=== PATIENT | female | born 1975 | race Caucasian/White ===

== ENCOUNTER 2017-08-30 07:28 | Day surgery (SDC) | payer BC, OTHER ==
[~2017-08-30 07:28] MED LIST: PROPOFOL INJ 200 MG/20 ML VIAL IV ONE
[2017-08-30 09:16] VITALS: BP 122/87
--- NOTE | 2017-08-30 12:46 | Operative Report ---
Operative Report DATE OF SURGERY: 08/30/17 Operative Report: The risks, benefits and alternatives of the procedure including risks of bleeding, perforation requiring surgery are explained to the patient detail and informed consent was obtained. Patient is taken back to the endoscopy suite and placed in the left, lateral decubital position. Timeout was called. Propofol medications administered. A rectal examination is done which did not reveal any masses, tears or fissures. An Olympus videoscope was inserted into the patient's rectum. The scope was then carefully advanced all the way to the cecum. The cecum is identified by the usual anatomical landmarks including the ileocecal valve as well as appendiceal office. Photodocumentation is obtained. The scope was then sequentially pulled back via the various segments of the colon including the ascending colon, hepatic flexure, transverse colon, splenic flexure, descending colon and finding to the rectosigmoid portions of the colon. Retroflexion maneuvers performed. PREOPERATIVE DIAGNOSIS: Left lower quadrant pain. Change in bowel habits POSTOPERATIVE DIAGNOSIS: Diverticulosis. Internal hemorrhoids. Polyp in the rectosigmoid area status post snare polypectomy. Right side inflammation noted status post biopsy OPERATION: Colonoscopy with snare polypectomy. Colonoscopy with biopsy SURGEON: DAMIEN ESTRADA ANESTHESIA: LMAC TISSUE REMOVED OR ALTERED: As noted above. COMPLICATIONS: None. ESTIMATED BLOOD LOSS: None. INTRAOPERATIVE FINDINGS: As noted above. PROCEDURE: Patient tolerated procedure well. No immediate postprocedure complications are noted. Patient discharged in good condition. Discharge date 08/30/2017. Discharge diet: Regular. Discharge activity: Regular. 2-3 week follow-up to discuss findings. 5 year surveillance colonoscopy. Patient is instructed to call the office or proceed to the emergency room should there be any further problems or questions. We will wait on pathology.
== END 2017-08-30 09:30 | disposition home or self-care (01) ==
LOC: END 07:28
PROVIDERS: ATTEND Internal Medicine Gastroenterology
PROC: 0DBF8ZX Excision of Right Large Intestine, Via Natural or Artificial Opening Endoscopic, Diagnostic (ICD-10-PCS; principal; 2017-08-30 08:30)
PROC: 0DBP8ZX Excision of Rectum, Via Natural or Artificial Opening Endoscopic, Diagnostic (ICD-10-PCS; 2017-08-30 08:30)
DX: D12.8 Benign neoplasm of rectum (principal); I10 Essential (primary) hypertension; Z79.51 Long term (current) use of inhaled steroids; Z79.899 Other long term (current) drug therapy
CPT/HCPCS: 45380; 45385; 88305 ×2; J2704; 810

== ENCOUNTER 2017-10-13 09:40 | Emergency (ER) | payer OTHER ==
[2017-10-13] MEDS ORDERED: ONDANSETRON HCL INJ/PF 4 MG/2 ML SDV IV ONE (10:08)
[2017-10-13] MEDS ORDERED: MORPHINE SULFATE 10 MG/ML INJ IV ONE (10:08)
[2017-10-13] MEDS ORDERED: NORMAL SALINE 1000 ML 1,000 ML IV ONE (10:08)
--- NOTE | 2017-10-13 10:09 | ER Document Report ---
ED Medical Screen (RME) - General Chief Complaint: Abdominal Pain Stated Complaint: ABDOMINAL PAIN Time Seen by Provider: 10/13/17 10:07 Notes: Patient has had one year of lower abdominal pain. She recently had a unremarkable cholecystectomy. She states the pain is worse when she has a bowel movement. TRAVEL OUTSIDE OF THE [place] IN LAST 30 DAYS: No - Related Data Allergies/Adverse Reactions: No Known Allergies Allergy (Verified 08/30/17 07:34) Past Medical History - Social History Chew tobacco use (# tins/day): No Frequency of alcohol use: None Drug Abuse: None - Past Medical History Cardiac Medical History: Reports: Hx Hypertension Denies: Hx Coronary Artery Disease, Hx Heart Attack Pulmonary Medical History: Reports: Hx Pneumonia - 2 YRS AGO Denies: Hx Asthma, Hx Bronchitis, Hx COPD Neurological Medical History: Denies: Hx Cerebrovascular Accident, Hx Seizures Renal/ Medical History: Reports: Hx Kidney Stones. Denies: Hx Peritoneal Dialysis Musculoskeltal Medical History: Denies Hx Arthritis Past Surgical History: Reports: Hx Section - Immunizations Hx Diphtheria, Pertussis, Tetanus Vaccination: Yes Physical Exam - Vital signs Vitals: Temp Pulse Resp BP Pulse Ox 98.1 F 77 16 135/101 H 97 10/13/17 09:50 10/13/17 09:50 10/13/17 09:50 10/13/17 09:50 10/13/17 09:50 Course - Vital Signs Vital signs: Temp Pulse Resp BP Pulse Ox 98.1 F 77 16 135/101 H 97 10/13/17 09:50 10/13/17 09:50 10/13/17 09:50 10/13/17 09:50 10/13/17 09:50
[2017-10-13] MEDS ORDERED: HYDROMORPHONE HCL INJ/PF 2 MG/ML AMPULE IV ONE (11:19)
[2017-10-13 11:32] LABS: ABSOLUTE BASOPHILS # (AUTO) 0.1 10^3/uL (0.0-0.2); ABSOLUTE EOSINOPHILS # (AUTO) 0.8 10^3/uL (0.0-0.6); ABSOLUTE LYMPHOCYTES (AUTO) 3.1 10^3/uL (0.5-4.7); ABSOLUTE MONOCYTES (AUTO) 0.6 10^3/uL (0.1-1.4); ABSOLUTE NEUT (AUTO) 4.5 10^3/uL (1.7-8.2); BASOPHILS % (AUTO) 0.6 % (0-2); EOSINOPHILS % (AUTO) 8.9 % (0-6); HEMATOCRIT 44.1 % (36.0-47.0); HEMOGLOBIN 15.1 g/dL (12.0-15.5); HGB HCT DIFFERENCE 1.2; LYMPHOCYTES % (AUTO) 33.9 % (13-45); MEAN CORPUSCULAR HEMOGLOBIN 28.3 pg (27.0-33.4); MEAN CORPUSCULAR HGB CONC 34.4 g/dL (32.0-36.0); MEAN CORPUSCULAR VOLUME 82 fl (80-97); MONOCYTES % (AUTO) 6.5 % (3-13); RED BLOOD COUNT 5.36 10^6/uL (3.72-5.28); RED CELL DISTRIBUTION WIDTH 14.5 % (11.5-14.0); SEGMENTED NEUTROPHILS % (AUTO) 50.1 % (42-78); WHITE BLOOD COUNT 9.1 10^3/uL (4.0-10.5)
[2017-10-13 12:01] LABS: ALANINE AMINOTRANSFERASE 34 U/L (9-52); ALBUMIN 4.5 g/dL (3.5-5.0); ALKALINE PHOSPHATASE 71 U/L (38-126); ANION GAP 13 (5-19); ASPARTATE AMINO TRANSFERASE 32 U/L (14-36); BILIRUBIN,DIRECT 0.4 mg/dL (0.0-0.4); BILIRUBIN,TOTAL 0.5 mg/dL (0.2-1.3); BLOOD UREA NITROGEN 10 mg/dL (7-20); CALCIUM 9.2 mg/dL (8.4-10.2); CARBON DIOXIDE 23 mmol/L (22-30); CHLORIDE 108 mmol/L (98-107); CREATININE RESULT 0.66 mg/dL (0.52-1.25); GLUCOSE 96 mg/dL (75-110); LIPASE 673.5 U/L (23-300); SODIUM 143.5 mmol/L (137-145); TOTAL PROTEIN 7.4 g/dL (6.3-8.2)
[2017-10-13 12:18] LABS: APPEARANCE,URINE CLOUDY; BILIRUBIN,URINE NEGATIVE (NEGATIVE); GLUCOSE, URINE NEGATIVE (NEGATIVE); KETONES,URINE NEGATIVE (NEGATIVE); LEUKOCYTE ESTERASE,URINE NEGATIVE (NEGATIVE); NITRITE,URINE POSITIVE (NEGATIVE); PROTEIN,URINE 30 mg/dL (NEGATIVE); URINE SPECIFIC GRAVITY 1.026
--- NOTE | 2017-10-13 12:21 | ER Document Report ---
ED GI/ - General Chief Complaint: Abdominal Pain Stated Complaint: ABDOMINAL PAIN Time Seen by Provider: 10/13/17 10:07 Notes: Patient is a 42-year-old female who presents to the emergency department with multiple symptoms but chief complaint of right flank pain that started this morning. Patient also complaining of left lower quadrant pain with suprapubic pain that is been on for about a week. She describes her right flank pain as a constant ache with intermittent stabbing. Regarding her suprapubic pain she describes it as a constant pressure that is radiating to her left lower quadrant. Patient does to admits to chronic abdominal pain that was recently evaluated with a colonoscopy with Dr. Ang. She was told at that time she she has internal hemorrhoids as well as diverticulosis but no evidence of any other intra-abdominal process. She otherwise denies any fevers or chills. She has been tolerating p.o. without any difficulty and having regular bowel movements. Past medical history significant for kidney stones, hypertension TRAVEL OUTSIDE OF THE [place] IN LAST 30 DAYS: No - Related Data Allergies/Adverse Reactions: No Known Allergies Allergy (Verified 08/30/17 07:34) Past Medical History - Social History Smoking Status: Current Every Day Smoker Chew tobacco use (# tins/day): No Frequency of alcohol use: None Drug Abuse: None Family History: Hypertension, Other - states her dad has anxiety issues Patient has suicidal ideation: No Patient has homicidal ideation: No - Past Medical History Cardiac Medical History: Reports: Hx Hypertension Denies: Hx Coronary Artery Disease, Hx Heart Attack Pulmonary Medical History: Reports: Hx Pneumonia - 2 YRS AGO Denies: Hx Asthma, Hx Bronchitis, Hx COPD Neurological Medical History: Denies: Hx Cerebrovascular Accident, Hx Seizures Renal/ Medical History: Reports: Hx Kidney Stones. Denies: Hx Peritoneal Dialysis Musculoskeltal Medical History: Denies Hx Arthritis Past Surgical History: Reports: Hx Section - Immunizations Hx Diphtheria, Pertussis, Tetanus Vaccination: Yes Review of Systems - Review of Systems Constitutional: No symptoms reported Cardiovascular: No symptoms reported Respiratory: No symptoms reported Gastrointestinal: See HPI Genitourinary: See HPI -: Yes All other systems reviewed and negative Physical Exam - Vital signs Vitals: Temp Pulse Resp BP Pulse Ox 98.1 F 77 16 135/101 H 97 10/13/17 09:50 10/13/17 09:50 10/13/17 09:50 10/13/17 09:50 10/13/17 09:50 - Notes Notes: PHYSICAL EXAM GENERAL: Alert, interacts well. LUNGS: Clear to auscultation bilaterally, no wheezes, rales, or rhonchi. No respiratory distress. HEART: Regular rate and rhythm. No murmurs, gallops, or rubs. ABDOMEN: Soft, nondistended, mild diffuse abdominal tenderness without guarding , rebound, or rigidity.. Bowel sounds present in all 4 quadrants. EXTREMITIES: Moves all 4 extremities spontaneously. No edema, radial and dorsalis pedis pulses 2/4 bilaterally. No cyanosis. Back: No evidence of CVA tenderness bilaterally. NEUROLOGICAL: Alert and oriented x4. Normal speech. PSYCH: Normal affect, normal mood. SKIN: Warm, dry, normal turgor. No rashes or lesions noted. Course - Re-evaluation Re-evalutation: 10/13/17 12:29 patient is a 42-year-old female who is hemodynamically stable, no acute distress and afebrile. Patient does have a history of diverticulosis and kidney stones. CBC without evidence of leukocytosis or anemia. Chemistry without any evidence of AK I. Mild elevation in pancreatic function but patient is asymptomatic. Urine does show concern for new onset of UTI with positive nitrites. White blood cells and evidence of trace bacteria. Patient is asymptomatic. 10/13/17 16:34 CT the abdomen pelvis shows a 4 x 8 mm stone within the lower pole the right kidney without evidence of hydronephrosis. Given evidence of bacteriuria, consult was placed to Sandi bullock urology [facility] who recommends that the patient can be discharged on Cipro and to follow-up with them in their clinic either this week or next week. Patient agrees with plan did receive a dose of Rocephin here and is stable for discharge home - Vital Signs Vital signs: Temp Pulse Resp BP Pulse Ox 97.7 F 69 18 126/96 H 97 10/13/17 17:07 10/13/17 17:07 10/13/17 17:07 10/13/17 17:07 10/13/17 17:07 - Laboratory Result Diagrams: 10/13/17 10:40 10/13/17 10:40 Laboratory results interpreted by me: 10/13/17 10/13/17 10/13/17 10:40 10:40 10:40 RBC 5.36 H RDW 14.5 H Eosinophils % 8.9 H Absolute Eosinophils 0.8 H Chloride 108 H Lipase 673.5 H Urine Protein 30 H Urine Blood LARGE H Urine Nitrite POSITIVE H Urine Urobilinogen 4.0 H - Diagnostic Test Radiology reviewed: Image reviewed, Reports reviewed Discharge - Discharge Clinical Impression: Nephrolithiasis UTI (urinary tract infection) Qualifiers: Urinary tract infection type: acute cystitis Hematuria presence: with hematuria Qualified Code(s): N30.01 - Acute cystitis with hematuria Condition: Good Disposition: HOME, SELF-CARE Additional Instructions: You do have evidence of a UTI with your stone is concerning for possibility of infection. Please be sure to take all of your antibiotics as directed otherwise follow-up with Dr. Bullock at [facility]. Otherwise please return to the emergency department with a fever of 102 not responding to Tylenol or Motrin, inability to tolerate fluids, worsening pain or any symptoms that are worrisome to you. [facility] - [facility] [id number] KIDNEY STONE: You are passing or have passed a kidney stone. These stones are usually due to increased calcium or uric acid concentrations in your urine. Stones within the kidney itself are not painful. The pain occurs as the stone leaves the kidney to pass down the long tube, called the ureter, leading to the bladder. If the stone is small, it will usually pass by itself. Most patients can pass the stone at home. You will usually receive medications for pain, nausea or vomiting, and sometimes a medication to assist in passing the kidney stone. However, if the pain is very severe or if vomiting prevents you from taking oral pain medications, you may need to return for further treatment. Drink three or four quarts of fluids per day. You will be given pain medication (if needed) and urine strainers. Strain all your urine to see if the stone passes. If your doctor has asked you to bring the stone in for analysis, return with the stone once it has passed. Return if pain or vomiting become severe, if you develop a high fever, if you are unable to pass your urine, or if other unusual symptoms occur. TORADOL INJECTION: You have been given an injection of ketorolac tromethamine (Toradol). This is an excellent, safe drug for pain control. It also has potent antiinflammatory action. You should have significant pain relief within about one hour. Toradol is not addicting and is non-sedating. It does not interfere with driving or work. Call or return if you develop itching, hives, shortness of breath, or rash. PAIN MEDICATION INJECTION: You have received an injection of a pain medication. You should experience significant pain relief within 45 minutes. This drug is a narcotic - - it will impair your judgement, slow your reaction time and make you sleepy ( as well as relieve your pain). Narcotics also can cause nausea. You should not drive, work with machinery, or perform any task requiring mental alertness until all effects of the medication are gone -- six to eight hours. Do not take any alcohol, or sedatives, and do not take any other medication without checking with your physician. ANTINAUSEA MEDICATION: You have been given a medication to suppress nausea and vomiting. This type of medication can be given as a shot, pill, or suppository. It will usually last for many hours. Pills and shots usually last six to eight hours, suppositories last about 12 hours. For the typical illness, only one or two doses of the medication may be necessary. Mild lightheadedness may occur. This type of medicine can cause drowsiness. Do not drive or operate dangerous machinery while under its influence. Do not mix with alcohol. See your doctor at once if you have muscle spasms or tightness, or uncontrollable motions (particularly of the neck, mouth, or jaw). Persistent vomiting or severe lightheadedness should also be evaluated by the physician. FOLLOW-UP CARE: If you have been referred to a physician for follow-up care, call the physician s office for an appointment as you were instructed or within the next two days. If you experience worsening or a significant change in your symptoms, notify the physician immediately or return to the Emergency Department at any time for re-evaluation. Prescriptions: Ketorolac Tromethamine [Toradol 10 mg Tablet] 10 mg PO Q6HP PRN #20 tablet PRN Reason: Ciprofloxacin HCl [Cipro 500 mg Tablet] 500 mg PO BID #10 tablet Metoclopramide HCl [Reglan 10 mg Tablet] 1 - 2 tab PO ASDIR PRN #25 tablet PRN Reason: Forms: Return to Work Referrals: ELIJAH GONZALES DO [Primary Care Provider] - Follow up as needed [facility] [Provider Group] - Follow up as needed
--- NOTE | 2017-10-13 14:10 | RADIOLOGY REPORT (SQ) ---
EXAM DESCRIPTION: CT ABD/PELVIS WITH IV ONLY COMPLETED DATE/TIME: 10/13/2017 1:59 pm REASON FOR STUDY: LLQ pain, h/o diverticulosis and kidney stones COMPARISON: 06/18/2014. TECHNIQUE: CT scan of the abdomen and pelvis performed using helical scanning technique with dynamic intravenous contrast injection. No oral contrast. Images reviewed with lung, soft tissue, and bone windows. Reconstructed coronal and sagittal MPR images reviewed. Delayed images for evaluation of the urinary system also acquired. All images stored on PACS. All CT scanners at this facility use dose modulation, iterative reconstruction, and/or weight based d osing when appropriate to reduce radiation dose to as low as reasonably achievable (ALARA). [facility]: Dose Right [facility]: CareDose [facility]: Dose Right [facility]: Teradose 4D [facility]: m2M Strategies CONTRAST TYPE AND DOSE: contrast/concentration: Isovue 370.00 mg/ml; Total Contrast Delivered: 95.0 ml; Total Saline Delivered: 59.1 ml RENAL FUNCTION: BUN 10 creatinine 0.66. RADIATION DOSE: . LIMITATIONS: None. FINDINGS: LOWER CHEST: No significant findings. No nodules or infiltrates. LIVER: Normal size. No masses. Mild fatty infiltration. No dilated ducts. SPLEEN: Normal size. No focal lesions. PANCREAS: No masses. No significant calcifications. No adjacent inflammation or peripancreatic fluid collections. Pancreatic duct not dilated. GALLBLADDER: No identified stones by CT criteria. No inflammatory changes to suggest cholecystitis. ADRENAL GLANDS: No significant masses or asymmetry. RIGHT KIDNEY AND URETER: No solid masses. 4 x 8 mm calculus in a lower pole calyx. No hydronephro sis or hydroureter. LEFT KIDNEY AND URETER: No solid masses. No significant calcifications. No hydronephrosis or hydr oureter. AORTA AND VESSELS: No aneurysm. No dissection. Renal arteries, SMA, celiac without stenosis. RETROPERITONEUM: No retroperitoneal adenopathy, hemorrhage or masses. BOWEL AND PERITONEAL CAVITY: Scattered colonic diverticuli primarily in the sigmoid colon. No masses or inflammatory changes. No free fluid or peritoneal masses. APPENDIX: Normal. PELVIS: No mass. No free fluid. Normal bladder. ABDOMINAL WALL: No masses. No hernias. BONES: No significant or acute findings. OTHER: No other significant finding. IMPRESSION: 1. SIGMOID DIVERTICULOSIS. NO CT FINDINGS OF ACUTE DIVERTICULITIS. 2. NONOBSTRUCTING CALYCEAL CALCULUS IN THE LOWER POLE OF THE RIGHT KIDNEY. NO URETERAL CALCULI OR OB STRUCTIVE UROPATHY. 3. NO OTHER SIGNIFICANT OR ACUTE FINDING IN THE ABDOMEN OR PELVIS ON CT SCAN WITH IV CONTRAST. TECHNICAL DOCUMENTATION: JOB ID: [id number] Quality ID # [id number]: Final reports with documentation of one or more dose reduction techniques (e.g., Au tomated exposure control, adjustment of the mA and/or kV according to patient size, use of iterative reconstruction technique) 2010 [employer]- All Rights Reserved
[2017-10-13] MEDS ORDERED: CEFTRIAXONE INJ 1000 MG VIAL IM ONE (16:28)
[2017-10-13] MEDS ORDERED: LIDOCAINE 1% INJ-PF (10 MG/ML) 30 ML SDV INJ ONE (16:28)
[2017-10-13 17:15] VITALS: BP 126/96
== END 2017-10-13 17:22 | disposition home or self-care (01) ==
LOC: ER 09:40
DX: N30.01 Acute cystitis with hematuria (principal); N20.0 Calculus of kidney; I10 Essential (primary) hypertension; F17.200 Nicotine dependence, unspecified, uncomplicated
CPT/HCPCS: 99284; 96372; 96361; 96374; 96375; 36415; 87086; 83690; 85025; 81025; 80053; 81001; 74177; J3490; J2270; J1170; J0696; J2405; J7030

== ENCOUNTER → 2017-11-01 | Outpatient (CLI) | payer OTHER | LOC: OD 14:17 | PROVIDERS: ATTEND Nurse Practitioner Acute Care | DX: R82.71 Bacteriuria (principal) | CPT/HCPCS: 87086; 87088 ==

== ENCOUNTER → 2018-01-12 | Outpatient (CLI) | payer OTHER ==
--- NOTE | 2018-01-12 16:43 | RADIOLOGY REPORT (SQ) ---
EXAM DESCRIPTION: KUB/ABDOMEN (SINGLE VIEW) COMPLETED DATE/TIME: 01/12/2018 4:25 pm REASON FOR STUDY: N20.0 CALCULUS OF KIDNEY N20.0 CALCULUS OF KIDNEY COMPARISON: CT dated 10/13/2017. NUMBER OF VIEWS: One view. TECHNIQUE: AP supine digital radiograph of the abdomen. LIMITATIONS: None. FINDINGS: CALCIFICATIONS: RIGHT KIDNEY: None. RIGHT URETER: 6 mm calculus at the level of L4. LEFT KIDNEY: None. LEFT URETER: No calcifications in the expected location of the ureter. BLADDER: No suspicious calcifications in the pelvis. BOWEL GAS PATTERN AND SOFT TISSUES: Normal bowel gas pattern. No masses or organomegaly. BONES: No acute fracture. No worrisome bone lesions. OTHER: None. IMPRESSION: 6 MM CALCULUS IN THE MID RIGHT URETER. TECHNICAL DOCUMENTATION: JOB ID: [id number] [employer]- All Rights Reserved Reading location - IP/workstation name: [email or web address]
== END ==
LOC: RAD 16:13
PROVIDERS: ATTEND Urology
DX: N20.0 Calculus of kidney (principal)
CPT/HCPCS: 74018

== ENCOUNTER 2018-05-01 11:53 | Emergency (ER) | payer OTHER ==
[2018-05-01] MEDS ORDERED: HYDROMORPHONE HCL INJ/PF 2 MG/ML AMPULE IV ONE ×3 (12:39→17:17)
[2018-05-01] MEDS ORDERED: ONDANSETRON 4 MG TAB.RAPDIS PO ONE (12:40)
--- NOTE | 2018-05-01 12:44 | ER Document Report ---
ED Medical Screen (RME) - General Chief Complaint: Abdominal Pain Stated Complaint: ABDOMINAL PAIN,VOMITING Time Seen by Provider: 05/01/18 12:16 Mode of Arrival: Ambulatory Information source: Patient Notes: 42-year-old female with hypertension presents with complaint of suprapubic abdominal pain that started 2 days prior to arrival. Patient describes the pain as throbbing, stabbing. She has had associated nausea with vomiting. Patient reports constipation despite multiple stool softeners and milk of magnesia. Patient did have a small bowel movement today that she states was excruciating, associated with blood and smell "like ". Patient has had prior similar symptoms and a recent colonoscopy which she reports was normal. I have greeted and performed a rapid initial assessment of this patient. A comprehensive ED assessment and evaluation of the patient including analysis of labs and imaging ( if obtained) and completion of medical decision making will be conducted by an additional ED provider. PHYSICAL EXAMINATION: GENERAL: In mild distress, tearful HEAD: Atraumatic, normocephalic. EYES: Pupils equal round extraocular movements intact, conjunctiva are normal. ENT: Nares patent NECK: Normal range of motion LUNGS: No respiratory distress Musculoskeletal: Normal range of motion NEUROLOGICAL: Normal speech, normal gait. PSYCH: Normal mood, normal affect. SKIN: Warm, Dry, normal turgor, no rashes or lesions noted. TRAVEL OUTSIDE OF THE [place] IN LAST 30 DAYS: No - Related Data Allergies/Adverse Reactions: No Known Allergies Allergy (Verified 05/01/18 11:54) Past Medical History - Past Medical History Cardiac Medical History: Reports: Hx Hypertension Denies: Hx Coronary Artery Disease, Hx Heart Attack Pulmonary Medical History: Reports: Hx Pneumonia - 2 YRS AGO Denies: Hx Asthma, Hx Bronchitis, Hx COPD Neurological Medical History: Denies: Hx Cerebrovascular Accident, Hx Seizures Renal/ Medical History: Reports: Hx Kidney Stones. Denies: Hx Peritoneal Dialysis Musculoskeltal Medical History: Denies Hx Arthritis Past Surgical History: Reports: Hx Section - Immunizations Hx Diphtheria, Pertussis, Tetanus Vaccination: Yes Physical Exam - Vital signs Vitals: Temp Pulse Resp BP Pulse Ox 98.4 F 119 H 20 154/97 H 98 05/01/18 11:57 05/01/18 11:57 05/01/18 11:57 05/01/18 11:57 05/01/18 11:57 Course - Vital Signs Vital signs: Temp Pulse Resp BP Pulse Ox 98.4 F 119 H 20 154/97 H 98 05/01/18 11:57 05/01/18 11:57 05/01/18 11:57 05/01/18 11:57 05/01/18 11:57 Doctor's Discharge - Discharge Referrals: SERENA RAMIRES NP [Primary Care Provider] - Follow up as needed
[2018-05-01] MEDS ORDERED: NORMAL SALINE 1000 ML 1,000 ML IV ONE ×2 (12:46→14:10)
[2018-05-01 14:07] LABS: ABSOLUTE BASOPHILS # (AUTO) 0.1 10^3/uL (0.0-0.2); ABSOLUTE EOSINOPHILS # (AUTO) 0.3 10^3/uL (0.0-0.6); ABSOLUTE LYMPHOCYTES (AUTO) 1.7 10^3/uL (0.5-4.7); ABSOLUTE MONOCYTES (AUTO) 1.1 10^3/uL (0.1-1.4); ABSOLUTE NEUT (AUTO) 15.6 10^3/uL (1.7-8.2); BASOPHILS % (AUTO) 0.3 % (0-2); EOSINOPHILS % (AUTO) 1.7 % (0-6); HEMATOCRIT 42.3 % (36.0-47.0); HEMOGLOBIN 14.5 g/dL (12.0-15.5); LYMPHOCYTES % (AUTO) 8.9 % (13-45); MEAN CORPUSCULAR HEMOGLOBIN 28.3 pg (27.0-33.4); MEAN CORPUSCULAR HGB CONC 34.3 g/dL (32.0-36.0); MEAN CORPUSCULAR VOLUME 82 fl (80-97); PLATELET COUNT 263 10^3/uL (150-450); RED BLOOD COUNT 5.13 10^6/uL (3.72-5.28); RED CELL DISTRIBUTION WIDTH 14.5 % (11.5-14.0); SEGMENTED NEUTROPHILS % (AUTO) 83.1 % (42-78); TOTAL CELLS COUNTED % (AUTO) 100 %; WHITE BLOOD COUNT 18.7 10^3/uL (4.0-10.5)
[2018-05-01 14:09] LABS: APPEARANCE,URINE SLIGHTLY-CLOUDY; BILIRUBIN,URINE NEGATIVE (NEGATIVE); COLOR,URINE YELLOW; GLUCOSE, URINE NEGATIVE (NEGATIVE); KETONES,URINE TRACE mg/dL (NEGATIVE); LEUKOCYTE ESTERASE,URINE NEGATIVE (NEGATIVE); NITRITE,URINE NEGATIVE (NEGATIVE); PROTEIN,URINE 30 mg/dL (NEGATIVE); URINE SPECIFIC GRAVITY 1.024; UROBILINOGEN,URINE NEGATIVE mg/dL (<2.0)
--- NOTE | 2018-05-01 14:11 | ER Document Report ---
ED GI/ - General Chief Complaint: Abdominal Pain Stated Complaint: ABDOMINAL PAIN,VOMITING Time Seen by Provider: 05/01/18 12:16 Mode of Arrival: Ambulatory Information source: Patient Notes: Patient presents complaining of lower pelvic abdominal pain for the past 2 days. Patient states that she has been straining to have bowel movements and has small caliber stool today which is not normal for her. Patient does complain of nausea and vomiting 2 episodes. Patient does complain of occasional sweats. Patient denies any vaginal bleeding or discharge. TRAVEL OUTSIDE OF THE [place] IN LAST 30 DAYS: No - HPI Patient complains to provider of: Pelvic pain, Vomiting. No: Diarrhea Onset: Other - 2 days Timing/Duration: Persistent Quality of pain: Sharp Pain Level: 5 Location: Pelvis Vaginal bleeding (Compared to normal period): None Associated symptoms: Nausea, Vomiting. denies: Diarrhea, Dizzy, Fever, Urinary hesitancy, Urinary frequency, Urinary retention Exacerbated by: Denies Relieved by: Denies Similar symptoms previously: No Recently seen / treated by doctor: No - Related Data Allergies/Adverse Reactions: No Known Allergies Allergy (Verified 05/01/18 11:54) Past Medical History - General Information source: Patient - Social History Smoking Status: Current Every Day Smoker Chew tobacco use (# tins/day): No Smoking Education Provided: Yes Frequency of alcohol use: Rare Drug Abuse: None Occupation: [employer] Lives with: Family Family History: Hypertension, Other - states her dad has anxiety issues Patient has suicidal ideation: No Patient has homicidal ideation: No - Past Medical History Cardiac Medical History: Reports: Hx Hypertension Denies: Hx Coronary Artery Disease, Hx Heart Attack Pulmonary Medical History: Reports: Hx Pneumonia - 2 YRS AGO Denies: Hx Asthma, Hx Bronchitis, Hx COPD Neurological Medical History: Denies: Hx Cerebrovascular Accident, Hx Seizures Renal/ Medical History: Reports: Hx Kidney Stones. Denies: Hx Peritoneal Dialysis Musculoskeltal Medical History: Denies Hx Arthritis Past Surgical History: Reports: Hx Section - Immunizations Hx Diphtheria, Pertussis, Tetanus Vaccination: Yes Review of Systems - Review of Systems Constitutional: No symptoms reported. denies: Fever EENT: No symptoms reported Cardiovascular: No symptoms reported. denies: Chest pain Respiratory: No symptoms reported. denies: Cough, Short of breath Gastrointestinal: Abdominal pain, Nausea, Vomiting, Constipation. denies: Diarrhea Genitourinary: No symptoms reported. denies: Dysuria, Flank pain Female Genitourinary: No symptoms reported. denies: Vaginal discharge, Vaginal bleeding Musculoskeletal: No symptoms reported Skin: No symptoms reported Hematologic/Lymphatic: No symptoms reported Neurological/Psychological: No symptoms reported Physical Exam - Vital signs Vitals: Temp Pulse Resp BP Pulse Ox 98.4 F 119 H 20 154/97 H 98 05/01/18 11:57 05/01/18 11:57 05/01/18 11:57 05/01/18 11:57 05/01/18 11:57 - General General appearance: Appears well, Alert In distress: Mild - HEENT Head: Normocephalic, Atraumatic Eyes: Normal Conjunctiva: Normal Nasal: Normal Mouth/Lips: Normal Mucous membranes: Normal Neck: Normal, Supple. No: Lymphadenopathy - Respiratory Respiratory status: No respiratory distress Chest status: Nontender Breath sounds: Normal. No: Rales, Rhonchi, Stridor, Wheezing Chest palpation: Normal - Cardiovascular Rhythm: Tachycardia Heart sounds: S1 appreciated, S2 appreciated Murmur: No - Abdominal Inspection: Obese Distension: No distension Bowel sounds: Normal Tenderness: Tender - Lower pelvic Organomegaly: No organomegaly - Genitourinary External exam: Normal Speculum exam: Cervix closed Vaginal bleeding: None Bimanuel exam: Cervical motion tender, Adnexal tenderness - Back Back: Normal, Nontender. No: CVA tenderness - Extremities General upper extremity: Normal inspection, Normal ROM General lower extremity: Normal inspection, Normal ROM - Neurological Neuro grossly intact: Yes Cognition: Normal [place] Coma Scale Eye Opening: Spontaneous [place] Coma Scale Verbal: Oriented [place] Coma Scale Motor: Obeys Commands [place] Coma Scale Total: 15 - Psychological Associated symptoms: Normal affect, Normal mood - Skin Skin Temperature: Warm Skin Moisture: Dry Skin Color: Normal Course - Re-evaluation Re-evalutation: 05/01/18 15:19 Patient with marked tenderness on pelvic examination. Patient with bilateral adnexal and cervical motion tenderness. - Vital Signs Vital signs: Temp Pulse Resp BP Pulse Ox 98.6 F 94 16 121/72 93 05/01/18 18:51 05/01/18 18:51 05/01/18 18:51 05/01/18 18:51 05/01/18 18:51 - Laboratory Result Diagrams: 06/17/18 13:43 05/01/18 13:43 Laboratory results interpreted by me: 05/01/18 05/01/18 05/01/18 13:43 13:43 13:43 WBC 18.7 H RDW 14.5 H Seg Neutrophils % 83.1 H Lymphocytes % 8.9 L Absolute Neutrophils 15.6 H Glucose 114 H Urine Protein 30 H Urine Ketones TRACE H Urine Blood SMALL H - Diagnostic Test Radiology reviewed: Image reviewed, Reports reviewed Discharge - Discharge Clinical Impression: Diverticulitis Abdominal pain Qualifiers: Abdominal location: unspecified location Qualified Code(s): R10.9 - Unspecified abdominal pain Condition: Stable Disposition: HOME, SELF-CARE Instructions: Abdominal Pain ([facility]), Ciprofloxacin ([facility]), Diverticulitis ([facility]), Metronidazole ([facility]) Additional Instructions: Return immediately for any new or worsening symptoms Followup with your primary care provider, call tomorrow to make a followup appointment Prescriptions: Ciprofloxacin HCl [Cipro 500 mg Tablet] 500 mg PO BID #20 tablet Metronidazole [Flagyl 500 mg Tablet] 500 mg PO TID #30 tablet Ondansetron HCl [Zofran 4 mg Tablet] 1 - 2 tab PO Q6 PRN #15 tablet PRN Reason: Oxycodone HCl/Acetaminophen [Percocet 5-325 mg Tablet] 1 tab PO ASDIR PRN #12 tablet PRN Reason: Forms: Smoking Cessation Education, Return to Work Referrals: ELIJAH GONZALES DO [Primary Care Provider] - Follow up tomorrow
[2018-05-01 14:27] LABS: ALANINE AMINOTRANSFERASE 24 U/L (9-52); ALBUMIN 4.3 g/dL (3.5-5.0); ALKALINE PHOSPHATASE 75 U/L (38-126); ANION GAP 13 (5-19); ASPARTATE AMINO TRANSFERASE 17 U/L (14-36); BILIRUBIN,DIRECT 0.3 mg/dL (0.0-0.4); BLOOD UREA NITROGEN 11 mg/dL (7-20); CALCIUM 9.5 mg/dL (8.4-10.2); CARBON DIOXIDE 26 mmol/L (22-30); CHLORIDE 105 mmol/L (98-107); GLUCOSE 114 mg/dL (75-110); SODIUM 143.9 mmol/L (137-145)
--- NOTE | 2018-05-01 15:16 | RADIOLOGY REPORT (SQ) ---
EXAM DESCRIPTION: ACUTE ABDOMEN SERIES COMPLETED DATE/TIME: 05/01/2018 2:47 pm REASON FOR STUDY: abd pain/ constipation vomiting COMPARISON: 01/12/2018 NUMBER OF VIEWS: Three views. TECHNIQUE: Frontal chest, supine abdomen and upright/decubitus abdomen radiographic images acquired. LIMITATIONS: None. FINDINGS: CHEST: Lungs clear of infiltrates. FREE AIR: None. No abnormal gas collections. BOWEL GAS PATTERN: Nonspecific, nonobstructed bowel gas pattern. Note is made of few scattered air-f luid levels within nondilated small bowel on both the left and right. CALCIFICATIONS: No suspicious calcifications. HARDWARE: None in the abdomen. SOFT TISSUES: No gross mass or suggestion of organomegaly. BONES: No acute fracture. No worrisome bone lesions. OTHER: No other significant finding. IMPRESSION: Findings favored to represent enteritis. No evidence of bowel obstruction. TECHNICAL DOCUMENTATION: JOB ID: [id number] [employer]- All Rights Reserved Reading location - IP/workstation name: [email or web address]
[2018-05-01 15:55] LABS: BACTERIA (WET MOUNT) 4+ BACTERIA SEEN; EPITHELIALS (WET MOUNT) 4+ EPITHELIALS SEEN; T.VAGINALIS (WET MOUNT) NO TRICHOMONAS SEEN; WBCS (WET MOUNT) FEW WBCS SEEN; YEAST (WET MOUNT) NO YEAST SEEN
--- NOTE | 2018-05-01 16:07 | RADIOLOGY REPORT (SQ) ---
EXAM DESCRIPTION: CT ABD/PELVIS WITH IV ONLY COMPLETED DATE/TIME: 05/01/2018 3:50 pm REASON FOR STUDY: lower pelvic pain COMPARISON: 10/13/2017 TECHNIQUE: CT scan of the abdomen and pelvis performed using helical scanning technique with dynamic intravenous contrast injection. No oral contrast. Images reviewed with lung, soft tissue, and bone windows. Reconstructed coronal and sagittal MPR images reviewed. Delayed images for evaluation of the urinary system also acquired. All images stored on PACS. All CT scanners at this facility use dose modulation, iterative reconstruction, and/or weight based d osing when appropriate to reduce radiation dose to as low as reasonably achievable (ALARA). [facility]: Dose Right [facility]: CareDose [facility]: Dose Right [facility]: Teradose 4D [facility]: Oculeve CONTRAST TYPE AND DOSE: contrast/concentration: Isovue 370.00 mg/ml; Total Contrast Delivered: 100.5 ml; Total Saline Delivered: 72.0 ml RENAL FUNCTION: BUN 11; creatinine 0.72 RADIATION DOSE: CT Rad equipment meets quality standard of care and radiation dose reduction techniq ues were employed. CTDIvol: 12.6 - 17.4 mGy. DLP: 1773 mGy-cm.. LIMITATIONS: None. FINDINGS: LOWER CHEST: No significant findings. No nodules or infiltrates. LIVER: Normal size. A subtle 2.2 cm rounded focus of early enhancement is seen within the right hepa tic lobe. This is retrospectively present on comparison CT imaging. SPLEEN: Normal size. No focal lesions. PANCREAS: No masses. No significant calcifications. No adjacent inflammation or peripancreatic fluid collections. Pancreatic duct not dilated. GALLBLADDER: No identified stones by CT criteria. No inflammatory changes to suggest cholecystitis. ADRENAL GLANDS: No significant masses or asymmetry. RIGHT KIDNEY AND URETER: No solid masses. No significant calcifications. Although imaging was obta ined in split phase, with urinary excretion of contrast No hydronephrosis or hydroureter. LEFT KIDNEY AND URETER: No solid masses. No significant calcifications. Although imaging was obtai shan and put phase, with urinary excretion of contrast. No hydronephrosis or hydroureter. AORTA AND VESSELS: No aneurysm. No dissection. Renal arteries, SMA, celiac without stenosis. RETROPERITONEUM: No retroperitoneal adenopathy, hemorrhage or masses. BOWEL AND PERITONEAL CAVITY: Scattered colonic diverticula. Mural thickening and peritoneal fat stra nding in the region of the sigmoid colon, without discrete nidus identified. No abscess. No free ai r. APPENDIX: Normal. PELVIS: No mass. No free fluid. Normal bladder. ABDOMINAL WALL: No masses. No hernias. BONES: No significant or acute findings. OTHER: No other significant finding. IMPRESSION: Uncomplicated sigmoid diverticulitis. TECHNICAL DOCUMENTATION: JOB ID: [id number] Quality ID # [id number]: Final reports with documentation of one or more dose reduction techniques (e.g., Au tomated exposure control, adjustment of the mA and/or kV according to patient size, use of iterative reconstruction technique) 2010 [employer] All Rights Reserved Reading location - IP/workstation name: [email or web address]
[2018-05-01] MEDS ORDERED: METRONIDAZOLE 500 MG/NS RTU 100 ML IV ONE (16:14)
[2018-05-01] MEDS ORDERED: CIPROFLOXACIN 400 MG/D5W RTU 400 MG/200 ML RTUPB IV ONE (16:14)
--- NOTE | 2018-05-01 17:04 | RADIOLOGY REPORT (SQ) ---
EXAM DESCRIPTION: U/S NON OB PEL TV W/DOPPLER COMPLETED DATE/TIME: 05/01/2018 4:49 pm REASON FOR STUDY: pelvic pain COMPARISON: None. TECHNIQUE: Dynamic and static grayscale images acquired of the pelvis via transvaginal approach and recorded on PACS. Additional selected color Doppler and spectral images recorded. LIMITATIONS: None. FINDINGS: UTERUS: Contour normal. No mass. ENDOMETRIAL STRIPE: No focal or generalized thickening. No masses. CERVIX: No nabothian cysts. RIGHT OVARY AND DOPPLER: Ovary not visualized. LEFT OVARY AND DOPPLER: Ovary not visualized. FREE FLUID: None noted. OTHER: No other significant finding. MEASUREMENTS: UTERUS: 4.9 x 6.1 x 8.4 cm. ENDOMETRIAL STRIPE: 5.5 mm. RIGHT OVARY: Not visualized. LEFT OVARY: Not visualized. IMPRESSION: BOTH OVARIES NOT VISUALIZED. OTHERWISE UNREMARKABLE TRANSVAGINAL PELVIC ULTRASOUND. TECHNICAL DOCUMENTATION: JOB ID: [id number] [employer]- All Rights Reserved Rev-04/01 Reading location - IP/workstation name: [email or web address]
[2018-05-01 17:26] LABS: CHLAM PCR NOT DETECTED (NOT DETECT); GON PCR NOT DETECTED (NOT DETECT)
[2018-05-01 19:14] VITALS: BP 121/72
== END 2018-05-01 19:05 | disposition home or self-care (01) ==
LOC: ER 11:53
DX: K57.92 Diverticulitis of intestine, part unspecified, without perforation or abscess without bleeding (principal); R10.30 Lower abdominal pain, unspecified; R11.10 Vomiting, unspecified; F17.200 Nicotine dependence, unspecified, uncomplicated; K59.00 Constipation, unspecified; I10 Essential (primary) hypertension; Z87.442 Personal history of urinary calculi
CPT/HCPCS: 96376; 99284; 96361; 96375; 96365; 36415; 87210; 85025; 81025; 80053; 81001; 87491; 87591; 74022; 76830; 93976; 74177; S0119; J1170; J7030; J0744

== ENCOUNTER 2018-11-13 13:43 | Observation (INO) | payer OTHER ==
[2018-11-13] MEDS ORDERED: NORMAL SALINE 1000 ML 1,000 ML IV ONE (14:41)
[2018-11-13] MEDS ORDERED: FENTANYL CITRATE INJ/PF 100 MCG/2 ML AMPUL IV ONE (14:41)
[2018-11-13] MEDS ORDERED: ONDANSETRON HCL INJ/PF 4 MG/2 ML SDV IV ONE (14:41)
--- NOTE | 2018-11-13 14:41 | ER Document Report ---
ED General - General Chief Complaint: Abdominal Pain Stated Complaint: ABDMINAL PAIN Time Seen by Provider: 11/13/18 13:46 Mode of Arrival: Ambulatory Information source: Patient Notes: 43-year-old female presents emergency department with complaints of abdominal pain. Patient states that the pain started 5 days ago. She contacted her primary care physician Dr. Cottrell for Cipro and Flagyl as the pain felt similar to her previous episodes of diverticulitis. He called in the prescription. She's been on the antibiotics for 4 days. Patient states that initially she began feeling better but over the last states she has been having fever, chills, nausea, vomiting, worsening pain. Patient states that the pain is located in the right lower quadrant and left lower quadrant areas. She describes it as a sharp and stabbing sensation that is worse with bowel movements. She denies any alleviating factors. She denies any dysuria, hematuria, vaginal bleeding, vaginal discharge. Her last menstrual period was on November 08. Patient states that the only surgery she has had on her abdomen was a . She has been drinking water throughout today. Patient denies any medical problems. She is not currently on any medications. TRAVEL OUTSIDE OF THE [place] IN LAST 30 DAYS: No - HPI Onset: Other - 5 days Onset/Duration: Persistent Quality of pain: Sharp, Stabbing, Throbbing Severity: Moderate Associated symptoms: Nausea, Vomiting Exacerbated by: Other - defecation Relieved by: Denies Similar symptoms previously: Yes Recently seen / treated by doctor: Yes - Related Data Allergies/Adverse Reactions: No Known Allergies Allergy (Verified 11/13/18 13:44) Past Medical History - General Information source: Patient - Social History Smoking Status: Current Every Day Smoker Chew tobacco use (# tins/day): No Frequency of alcohol use: None Drug Abuse: None Family History: Hypertension, Other - states her dad has anxiety issues Patient has suicidal ideation: No Patient has homicidal ideation: No - Past Medical History Cardiac Medical History: Reports: Hx Hypertension Denies: Hx Coronary Artery Disease, Hx Heart Attack Pulmonary Medical History: Reports: Hx Pneumonia - 2 YRS AGO Denies: Hx Asthma, Hx Bronchitis, Hx COPD Neurological Medical History: Denies: Hx Cerebrovascular Accident, Hx Seizures Renal/ Medical History: Reports: Hx Kidney Stones. Denies: Hx Peritoneal Dialysis Musculoskeletal Medical History: Denies Hx Arthritis Past Surgical History: Reports: Hx Section - Immunizations Hx Diphtheria, Pertussis, Tetanus Vaccination: Yes Review of Systems - Review of Systems Constitutional: Chills, Fever EENT: No symptoms reported Cardiovascular: No symptoms reported Respiratory: No symptoms reported Gastrointestinal: Abdominal pain, Nausea, Vomiting Genitourinary: No symptoms reported Female Genitourinary: No symptoms reported Musculoskeletal: No symptoms reported Skin: No symptoms reported Hematologic/Lymphatic: No symptoms reported Neurological/Psychological: No symptoms reported -: Yes All other systems reviewed and negative Physical Exam - Vital signs Vitals: Temp Pulse Resp BP Pulse Ox 98.1 F 89 16 135/97 H 98 11/13/18 13:57 11/13/18 13:57 11/13/18 13:57 11/13/18 13:57 11/13/18 13:57 - Notes Notes: PHYSICAL EXAMINATION: GENERAL: Patient appears in pain. HEAD: Atraumatic, normocephalic. EYES: Pupils equal round and reactive to light, extraocular movements intact, conjunctiva are normal. ENT: Nares patent, oropharynx clear without exudates. Moist mucous membranes. NECK: Normal range of motion, supple without lymphadenopathy LUNGS: Breath sounds clear to auscultation bilaterally and equal. No wheezes rales or rhonchi. HEART: Regular rate and rhythm without murmurs ABDOMEN: Soft, tenderness to palpation in the right lower quadrant, suprapubic area, left lower quadrant. No rebound or guarding. Normal active bowel sounds. Female : deferred Musculoskeletal: Normal range of motion, no pitting or edema. No cyanosis. NEUROLOGICAL: Cranial nerves grossly intact. Normal speech, normal gait. Normal sensory, motor exams PSYCH: Normal mood, normal affect. SKIN: Warm, Dry, normal turgor, no rashes or lesions noted. Course - Vital Signs Vital signs: Temp Pulse Resp BP Pulse Ox 98.1 F 89 16 135/97 H 98 11/13/18 13:57 11/13/18 13:57 11/13/18 13:57 11/13/18 13:57 11/13/18 13:57 11/13/18 17:39 White blood cell count is 11.9. CT abdomen pelvis was done. This shows diverticulitis. I reevaluated the patient. She does not feel that she can be discharged home. She states that she has been on Cipro and Flagyl for the last 4 days and she feels like she is continuing to get worse. I contacted the hospitalist, Dr. Edgar, for admission. He's agreeable with admission. I started the patient on zosyn after obtaining blood cultures. - Laboratory Result Diagrams: 11/13/18 14:45 11/13/18 15:36 Laboratory results interpreted by me: 11/13/18 11/13/18 11/13/18 14:45 14:45 15:36 WBC 11.9 H RDW 14.7 H Potassium 3.3 L Total Protein 6.0 L Urine Urobilinogen 2.0 H Ur Leukocyte Esterase SMALL H Discharge - Discharge Clinical Impression: Diverticulitis Condition: Stable Disposition: ADMITTED OBSERVATION Admitting Provider: Hospitalist Unit Admitted: Medical Floor Referrals: ELIJAH COTTRELL DO [Primary Care Provider] - Follow up as needed
[2018-11-13 14:58] LABS: ABSOLUTE BASOPHILS # (AUTO) 0.1 10^3/uL (0.0-0.2); ABSOLUTE EOSINOPHILS # (AUTO) 0.5 10^3/uL (0.0-0.6); ABSOLUTE LYMPHOCYTES (AUTO) 2.5 10^3/uL (0.5-4.7); ABSOLUTE MONOCYTES (AUTO) 0.9 10^3/uL (0.1-1.4); ABSOLUTE NEUT (AUTO) 7.9 10^3/uL (1.7-8.2); BASOPHILS % (AUTO) 0.6 % (0-2); HEMATOCRIT 41.1 % (36.0-47.0); HEMOGLOBIN 14.5 g/dL (12.0-15.5); LYMPHOCYTES % (AUTO) 21.1 % (13-45); MEAN CORPUSCULAR HEMOGLOBIN 29.1 pg (27.0-33.4); MEAN CORPUSCULAR HGB CONC 35.2 g/dL (32.0-36.0); MEAN CORPUSCULAR VOLUME 83 fl (80-97); MONOCYTES % (AUTO) 7.6 % (3-13); PLATELET COUNT 304 10^3/uL (150-450); RED BLOOD COUNT 4.97 10^6/uL (3.72-5.28); RED CELL DISTRIBUTION WIDTH 14.7 % (11.5-14.0); SEGMENTED NEUTROPHILS % (AUTO) 66.7 % (42-78); TOTAL CELLS COUNTED % (AUTO) 100 %; WHITE BLOOD COUNT 11.9 10^3/uL (4.0-10.5)
[2018-11-13 15:02] LABS: APPEARANCE,URINE SLIGHTLY-CLOUDY; BILIRUBIN,URINE NEGATIVE (NEGATIVE); COLOR,URINE YELLOW; GLUCOSE, URINE NEGATIVE (NEGATIVE); KETONES,URINE NEGATIVE (NEGATIVE); LEUKOCYTE ESTERASE,URINE SMALL (NEGATIVE); NITRITE,URINE NEGATIVE (NEGATIVE); PROTEIN,URINE NEGATIVE (NEGATIVE); URINE SPECIFIC GRAVITY 1.017
[2018-11-13 16:05] LABS: ALANINE AMINOTRANSFERASE 18 U/L (9-52); ALBUMIN 3.6 g/dL (3.5-5.0); ALKALINE PHOSPHATASE 57 U/L (38-126); ANION GAP 8 (5-19); ASPARTATE AMINO TRANSFERASE 16 U/L (14-36); BILIRUBIN,DIRECT 0.2 mg/dL (0.0-0.4); BILIRUBIN,TOTAL 0.6 mg/dL (0.2-1.3); BLOOD UREA NITROGEN 7 mg/dL (7-20); CALCIUM 8.5 mg/dL (8.4-10.2); CARBON DIOXIDE 26 mmol/L (22-30); CHLORIDE 105 mmol/L (98-107); GLUCOSE 86 mg/dL (75-110); LIPASE 282.8 U/L (23-300); POTASSIUM 3.3 mmol/L (3.6-5.0); SODIUM 139.1 mmol/L (137-145)
--- NOTE | 2018-11-13 17:08 | RADIOLOGY REPORT (SQ) ---
EXAM DESCRIPTION: CT ABD/PELVIS WITH IV ONLY COMPLETED DATE/TIME: 11/13/2018 4:47 pm REASON FOR STUDY: RLQ, LLQ abdominal pain COMPARISON: 05/01/2018 TECHNIQUE: CT scan of the abdomen and pelvis performed using helical scanning technique with dynamic intravenous contrast injection. No oral contrast. Images reviewed with lung, soft tissue, and bone windows. Reconstructed coronal and sagittal MPR images reviewed. Delayed images for evaluation of the urinary system also acquired. All images stored on PACS. All CT scanners at this facility use dose modulation, iterative reconstruction, and/or weight based d osing when appropriate to reduce radiation dose to as low as reasonably achievable (ALARA). [facility]: Dose Right [facility]: CareDose [facility]: Dose Right [facility]: Teradose 4D [facility]: [employer] CONTRAST TYPE AND DOSE: contrast/concentration: Isovue 350.00 mg/ml; Total Contrast Delivered: 100.0 ml; Total Saline Delivered: 72.0 ml RENAL FUNCTION: GFR > 60. RADIATION DOSE: CT Rad equipment meets quality standard of care and radiation dose reduction techniq ues were employed. CTDIvol: 10.3 - 14.4 mGy. DLP: 1479 mGy-cm.. LIMITATIONS: None. FINDINGS: LOWER CHEST: No significant findings. No nodules or infiltrates. LIVER: Stable hemangiomas. SPLEEN: Normal size. No focal lesions. PANCREAS: No masses. No significant calcifications. No adjacent inflammation or peripancreatic fluid collections. Pancreatic duct not dilated. GALLBLADDER: No identified stones by CT criteria. No inflammatory changes to suggest cholecystitis. ADRENAL GLANDS: No significant masses or asymmetry. RIGHT KIDNEY AND URETER: No solid masses. No significant calcifications. No hydronephrosis or hyd roureter. LEFT KIDNEY AND URETER: No solid masses. No significant calcifications. No hydronephrosis or hydr oureter. AORTA AND VESSELS: No aneurysm. No dissection. Renal arteries, SMA, celiac without stenosis. RETROPERITONEUM: No retroperitoneal adenopathy, hemorrhage or masses. BOWEL AND PERITONEAL CAVITY: Sigmoid diverticulosis. Subtle stranding of the mesocolon in the pelvis . No free fluid or peritoneal masses. APPENDIX: Normal. PELVIS : 3 cm focus of fluid attenuation along the superior margin of the uterine fundus, medial to the expected location of the right ovary. This is unlikely clinical significance, possibly lymphocel e. No adenopathy. No free fluid. ABDOMINAL WALL: No masses. No hernias. BONES: No significant or acute findings. OTHER: No other significant finding. IMPRESSION: Sigmoid diverticulitis. TECHNICAL DOCUMENTATION: JOB ID: [id number] Quality ID # [id number]: Final reports with documentation of one or more dose reduction techniques (e.g., Au tomated exposure control, adjustment of the mA and/or kV according to patient size, use of iterative reconstruction technique) 2010 [employer]- All Rights Reserved Reading location - IP/workstation name: [email or web address]
[2018-11-13] MEDS ORDERED: PIPERACILLIN/TAZOBACTAM 3.375 GM VIAL IV ONE (17:38)
[2018-11-13] MEDS ORDERED: POTASSIUM CHLORIDE 10 MEQ CAPSULE.ER PO ONE (18:51)
[2018-11-13] MEDS ORDERED: OXYCODONE-ACETAMINOPHEN 5-325 MG TABLET PO PRN (18:52)
[2018-11-13] MEDS ORDERED: IBUPROFEN 800 MG TABLET PO PRN (18:53)
--- NOTE | 2018-11-13 19:03 | PDOC H&P ---
History of Present Illness Admission Date/PCP: 11/13/18 17:58 ELIJAH COTTRELL DO Patient complains of: Abdominal pain History of Present Illness: RASHMI HODGE is a 43 year old female history of kidney stone, diverticulitis, who presents with complaint of lower abdominal pain. The pain starts on the left side and radiates across her lower abdomen to the right side. This started 4 days ago and her physician, Dr. Cottrell, put on Cipro and Levaquin. However, the pain has not resolved. In fact became worse this morning and he called the physician who asked her to come to the ED. Patient reports nausea, but no vomiting. She has not been eating much because this caused her to have significant pain. She felt feverish at home. She denies dysuria or polyuria, melena frequency. No rectal bleeding. She took 2 tramadol for pain last night, but this has not helped much. Patient presented to the ED with evaluation significant for abdominal CT showing sigmoid diverticulitis. CBC revealed white blood cell count of 11.9. Patient was treated with IV fluid bolus, blood cultures done, treated with a dose of Zosyn and referred to the hospitalist service for admission. Past Medical History Cardiac Medical History: Reports: Hypertension Denies: Coronary Artery Disease, Myocardial Infarction Pulmonary Medical History: Reports: Pneumonia - 2 YRS AGO Denies: Asthma, Bronchitis, Chronic Obstructive Pulmonary Disease (COPD) Neurological Medical History: Denies: Seizures Renal/ Medical History: Reports: Nephrolithiasis GI Medical History: Reports: Diverticulitis Musculoskeltal Medical History: Denies: Arthritis Hematology: Denies: Anemia Past Surgical History Past Surgical History: Reports: Section Social History Smoking Status: Current Every Day Smoker Frequency of Alcohol Use: None Hx Recreational Drug Use: No Hx Prescription Drug Abuse: No Family History Family History: Hypertension, Other - states her dad has anxiety issues Family History: Significant for diabetes. Uncle has multiple myeloma. Parental Family History Reviewed: Yes Children Family History Reviewed: Yes Sibling(s) Family History Reviewed.: Yes Medication/Allergy Home Medications: Alprazolam [Xanax] 1 mg PO TID 08/25/17 Lisinopril/Hydrochlorothiazide [Lisinopril-Hctz 20-12.5 mg Tab] 1 each PO DAILY 08/25/17 Ciprofloxacin HCl [Cipro 500 mg Tablet] 500 mg PO BID #10 tablet 10/13/17 Ketorolac Tromethamine [Toradol 10 mg Tablet] 10 mg PO Q6HP PRN #20 tablet 10/13/17 Metoclopramide HCl [Reglan 10 mg Tablet] 1 - 2 tab PO ASDIR PRN #25 tablet 10/13/17 Ciprofloxacin HCl [Cipro 500 mg Tablet] 500 mg PO BID #20 tablet 05/01/18 Metronidazole [Flagyl 500 mg Tablet] 500 mg PO TID #30 tablet 05/01/18 Ondansetron HCl [Zofran 4 mg Tablet] 1 - 2 tab PO Q6 PRN #15 tablet 05/01/18 Oxycodone HCl/Acetaminophen [Percocet 5-325 mg Tablet] 1 tab PO ASDIR PRN #12 tablet 05/01/18 Allergies/Adverse Reactions: No Known Allergies Allergy (Verified 11/13/18 13:44) Review of Systems Review of Systems: CONSTITUTIONAL : Fever, chills -- No; unexpalined fatigue -- No EENT: Denies eye, ear, throat, or mouth pain or symptoms. Denies nasal or sinus congestion or discharge. Denies throat, tongue, or mouth swelling or difficulty swallowing. CARDIOVASCULAR: Denies chest pain. No racing heart RESPIRATORY: Denies cough, no shortness of breath, difficulty breathing. GASTROINTESTINAL: As in HPI. GENITOURINARY: Urinary symptoms -- no. MUSCULOSKELETAL: No acute weakness SKIN: Denies rash, lesions or sores. HEMATOLOGIC : Denies easy bruising or bleeding. LYMPHATIC: Denies swollen, enlarged glands. NEUROLOGICAL: New weakness, headaches, slured speach - No PSYCHIATRIC: Changes anxiety or stress, depression, suicidal ideation, or homicidal ideation -- No ALL OTHER SYSTEMS REVIEWED AND NEGATIVE. Physical Exam Vital Signs: Temp Pulse Resp BP Pulse Ox 98.1 F 89 16 135/97 H 98 11/13/18 13:57 11/13/18 13:57 11/13/18 13:57 11/13/18 13:57 11/13/18 13:57 Intake & Output 11/12/18 11/13/18 11/14/18 06:59 06:59 06:59 Intake Total 1000 Balance 1000 Weight 91.6 kg GENERAL: Well-developed, well-nourished female, no acute distress HEENT: Normocephalic/atraumatic NECK supple, no JVD CARDIOVASCULAR: RRR, normal S1-S2, no murmur/rub/gallop LUNGS: CTA bilaterally ABDOMEN: Soft, moderate to significant tenderness left lower quadrant, moderate tenderness epigastric, right lower quadrant, No rebound or guarding, NL bowel sounds EXTREMITIES: No edema, clubbing, cyanosis NEUROLOGICAL: Alert, oriented x 3, CN II to XII grossly intact, strength 5/5 all extremities. Results Laboratory Results: 11/13/18 14:45 11/13/18 15:36 11/13/18 11/13/18 11/13/18 14:45 14:45 14:45 WBC 11.9 H RBC 4.97 Hgb 14.5 Hct 41.1 MCV 83 MCH 29.1 MCHC 35.2 RDW 14.7 H Plt Count 304 Seg Neutrophils % 66.7 Lymphocytes % 21.1 Monocytes % 7.6 Eosinophils % 4.0 Basophils % 0.6 Absolute Neutrophils 7.9 Absolute Lymphocytes 2.5 Absolute Monocytes 0.9 Absolute Eosinophils 0.5 Absolute Basophils 0.1 Sodium Cancelled Potassium Cancelled Chloride Cancelled Carbon Dioxide Cancelled Anion Gap Cancelled BUN Cancelled Creatinine Cancelled Est GFR ( Amer) Cancelled Est GFR (Non-Af Amer) Cancelled Glucose Cancelled Calcium Cancelled Total Bilirubin Cancelled AST Cancelled ALT Cancelled Alkaline Phosphatase Cancelled Total Protein Cancelled Albumin Cancelled Lipase Cancelled Urine Color YELLOW Urine Appearance SLIGHTLY-CLOUDY Urine pH 6.0 Ur Specific [place] 1.017 Urine Protein NEGATIVE Urine Glucose (UA) NEGATIVE Urine Ketones NEGATIVE Urine Blood NEGATIVE Urine Nitrite NEGATIVE Ur Leukocyte Esterase SMALL H Urine WBC (Auto) 1 Urine RBC (Auto) 3 11/13/18 15:36 WBC RBC Hgb Hct MCV MCH MCHC RDW Plt Count Seg Neutrophils % Lymphocytes % Monocytes % Eosinophils % Basophils % Absolute Neutrophils Absolute Lymphocytes Absolute Monocytes Absolute Eosinophils Absolute Basophils Sodium 139.1 Potassium 3.3 L Chloride 105 Carbon Dioxide 26 Anion Gap 8 BUN 7 Creatinine 0.58 Est GFR ( Amer) > 60 Est GFR (Non-Af Amer) > 60 Glucose 86 Calcium 8.5 Total Bilirubin 0.6 AST 16 ALT 18 Alkaline Phosphatase 57 Total Protein 6.0 L Albumin 3.6 Lipase 282.8 Urine Color Urine Appearance Urine pH Ur Specific [place] Urine Protein Urine Glucose (UA) Urine Ketones Urine Blood Urine Nitrite Ur Leukocyte Esterase Urine WBC (Auto) Urine RBC (Auto) Impressions: Abdomen/Pelvis CT 11/13/18 14:36 IMPRESSION: Sigmoid diverticulitis. Assessment & Plan - Diagnosis (1) Sigmoid diverticulitis Is this a current diagnosis for this admission?: Yes (2) Hypokalemia Is this a current diagnosis for this admission?: Yes (3) Nicotine addiction Qualifiers: Nicotine product type: cigarettes Substance use status: unspecified nicotine-induced disorder Qualified Code(s): F17.219 - Nicotine dependence, cigarettes, with unspecified nicotine-induced disorders Is this a current diagnosis for this admission?: Yes - Plan Summary Plan Summary: Will admit patient to 24 hours observation, since she is hemodynamically stable. No fever, no tachycardia. Follow-up blood culture results. We will continue Zosyn IV for now and hydrate with normal saline IV at 120 mm/h. Will manage laurence n with ibuprofen; will use Percocet for severe pain. Follow-up CBC and Chem-7 in a.m. UA showed small leukocyte esterase, but only 1 white blood cells, so I doubt UTI. Urine was negative. Hopefully patients will improve soon and can be discharged in the next 24-48 hours. For nicotine addiction, will treat with nicotine patch 21 mg daily. Patient counseled about smoking cessation.
[2018-11-13] MEDS ORDERED: NICOTINE 21 MG/24 HR PATCH.TD24 TD ONE (19:15)
[2018-11-13] MEDS: NORMAL SALINE 1000 ML 1,000 ML IV PRN (20:25)
[2018-11-14] MEDS ORDERED: PIPERACILLIN/TAZOBACTAM 3.375 GM VIAL IV ONE (01:47)
[2018-11-14 05:08] LABS: HEMATOCRIT 36.8 % (36.0-47.0); HEMOGLOBIN 12.7 g/dL (12.0-15.5); MEAN CORPUSCULAR HEMOGLOBIN 28.6 pg (27.0-33.4); MEAN CORPUSCULAR HGB CONC 34.6 g/dL (32.0-36.0); MEAN CORPUSCULAR VOLUME 82 fl (80-97); PLATELET COUNT 239 10^3/uL (150-450); RED BLOOD COUNT 4.46 10^6/uL (3.72-5.28); RED CELL DISTRIBUTION WIDTH 14.7 % (11.5-14.0); WHITE BLOOD COUNT 6.9 10^3/uL (4.0-10.5)
[2018-11-14] MEDS: NORMAL SALINE 1000 ML 1,000 ML IV PRN (05:26)
[2018-11-14 05:31] LABS: ANION GAP 8 (5-19); BLOOD UREA NITROGEN 6 mg/dL (7-20); CALCIUM 8.4 mg/dL (8.4-10.2); CARBON DIOXIDE 23 mmol/L (22-30); CHLORIDE 111 mmol/L (98-107); GLUCOSE 92 mg/dL (75-110); POTASSIUM 3.5 mmol/L (3.6-5.0); SODIUM 142.4 mmol/L (137-145)
[2018-11-14] MEDS ORDERED: PIPERACILLIN SODIUM/TAZOBACTAM 3.375 GM in NORMAL SALINE 100 ML IV SCH ×3 (09:00)
[2018-11-14] MEDS ORDERED: ENOXAPARIN SODIUM INJ 40 MG/0.4 ML DISP.SYRIN SUBCUT SCH (10:00)
[2018-11-14] MEDS ORDERED: NICOTINE 21 MG/24 HR PATCH.TD24 TD SCH (10:00)
[2018-11-14 10:07] VITALS: BP 122/84
--- NOTE | 2018-11-15 23:41 | PDOC DISCHARGE SUMMARY ---
General - Admit/Disc Date/PCP Admission Date/Primary Care Provider: 11/13/18 17:58 ELIJAH COTTRELL DO Discharge Date: 11/14/18 - Discharge Diagnosis (1) Sigmoid diverticulitis Is this a current diagnosis for this admission?: Yes (2) Hypokalemia Is this a current diagnosis for this admission?: Yes (3) Nicotine addiction Is this a current diagnosis for this admission?: Yes - Additional Information Resuscitation Status: Full Code Home Medications: Alprazolam [Xanax] 1 mg PO TID 08/25/17 Lisinopril/Hydrochlorothiazide [Lisinopril-Hctz 20-12.5 mg Tab] 1 each PO DAILY 08/25/17 Ciprofloxacin HCl [Cipro 500 mg Tablet] 500 mg PO BID #10 tablet 10/13/17 Ketorolac Tromethamine [Toradol 10 mg Tablet] 10 mg PO Q6HP PRN #20 tablet 10/13/17 Metoclopramide HCl [Reglan 10 mg Tablet] 1 - 2 tab PO ASDIR PRN #25 tablet 10/13/17 Ciprofloxacin HCl [Cipro 500 mg Tablet] 500 mg PO BID #20 tablet 05/01/18 Metronidazole [Flagyl 500 mg Tablet] 500 mg PO TID #30 tablet 05/01/18 Ondansetron HCl [Zofran 4 mg Tablet] 1 - 2 tab PO Q6 PRN #15 tablet 05/01/18 Oxycodone HCl/Acetaminophen [Percocet 5-325 mg Tablet] 1 tab PO ASDIR PRN #12 tablet 05/01/18 History of Present Illness History of Present Illness: Patient was admitted after presentation as in HPI below: "RASHMI HODGE is a 43 year old female history of kidney stone, diverticulitis, who presents with complaint of lower abdominal pain. The pain starts on the left side and radiates across her lower abdomen to the right side. This started 4 days ago and her physician, Dr. Cottrell, put on Cipro and [flagyl]. However, the pain has not resolved. In fact became worse this morning and he called the physician who asked her to come to the ED. Patient reports nausea, but no vomiting. She has not been eating much because this caused her to have significant pain. She felt feverish at home. She denies dysuria or polyuria, melena frequency. No rectal bleeding. She took 2 tramadol for pain last night, but this has not helped much. Patient presented to the ED with evaluation significant for abdominal CT showing sigmoid diverticulitis. CBC revealed white blood cell count of 11.9. Patient was treated with IV fluid bolus, blood cultures done, treated with a dose of Zosyn and referred to the hospitalist service for admission." Hospital Course Hospital Course: Since she was hemodynamically stable, with no fever, no tachycardia, patient was admitted to 24 hours observation and managed as follows: (1) Sigmoid diverticulitis Is this a current diagnosis for this admission?: Yes She wasl continued on Zosyn IV as well as hydrated with normal saline IV at 120 mm/h. Managed pain with ibuprofen, with plan to use Percocet for severe pain. UA showed small leukocyte esterase, but only 1 white blood cells, so I doubt UTI. Urine was negative. By today patient markedly improved, wbc normal and she was requesting to go home. Blood cultures pending and patient would like to be called with the result. She is being discharged in improved condition. She is advised to f/u with her pcp within 1 week. She is to complete her abx course of Cipro and Flagyl, as I'm not convinced they are not effective--pt very likely was dehydrated and fluids have helped. (2) Hypokalemia Is this a current diagnosis for this admission?: Yes Repleted (3) Nicotine addiction Qualifiers: Nicotine product type: cigarettes Substance use status: unspecified nicoti ne-induced disorder Qualified Code(s): F17.219 - Nicotine dependence, cig arettes, with unspecified nicotine-induced disorders Is this a current diagnosis for this admission?: Yes Treated with nicotin patch. Smoking cessation counselling also done. Physical Exam Vital Signs: Temp Pulse Resp BP Pulse Ox 98.2 F 70 15 122/84 99 11/14/18 10:05 11/14/18 10:05 11/14/18 10:05 11/14/18 10:05 11/14/18 10:05 Intake & Output 11/13/18 11/14/18 11/15/18 06:59 06:59 06:59 Intake Total 2100 100 Balance 2100 100 Weight 91.6 kg GENERAL: Well-developed, well-nourished female, no acute distress HEENT: Normocephalic/atraumatic NECK supple, no JVD CARDIOVASCULAR: RRR, normal S1-S2, no murmur/rub/gallop LUNGS: CTA bilaterally ABDOMEN: Soft, mild tenderness left lower quadrant, mild tenderness suprapubic, no tenderness epigastric or right upper and lower quadrants, No rebound or guarding, NL bowel sounds EXTREMITIES: No edema, clubbing, cyanosis NEUROLOGICAL: Alert, oriented x 3, CN II to XII grossly intact, strength 5/5 all extremities. Results Laboratory Results: 11/14/18 04:00 11/14/18 04:00 11/13/18 11/13/18 11/13/18 14:45 14:45 14:45 WBC 11.9 H RBC 4.97 Hgb 14.5 Hct 41.1 MCV 83 MCH 29.1 MCHC 35.2 RDW 14.7 H Plt Count 304 Seg Neutrophils % 66.7 Lymphocytes % 21.1 Monocytes % 7.6 Eosinophils % 4.0 Basophils % 0.6 Absolute Neutrophils 7.9 Absolute Lymphocytes 2.5 Absolute Monocytes 0.9 Absolute Eosinophils 0.5 Absolute Basophils 0.1 Sodium Cancelled Potassium Cancelled Chloride Cancelled Carbon Dioxide Cancelled Anion Gap Cancelled BUN Cancelled Creatinine Cancelled Est GFR ( Amer) Cancelled Est GFR (Non-Af Amer) Cancelled Glucose Cancelled Calcium Cancelled Total Bilirubin Cancelled AST Cancelled ALT Cancelled Alkaline Phosphatase Cancelled Total Protein Cancelled Albumin Cancelled Lipase Cancelled TSH Urine Color YELLOW Urine Appearance SLIGHTLY-CLOUDY Urine pH 6.0 Ur Specific [place] 1.017 Urine Protein NEGATIVE Urine Glucose (UA) NEGATIVE Urine Ketones NEGATIVE Urine Blood NEGATIVE Urine Nitrite NEGATIVE Ur Leukocyte Esterase SMALL H Urine WBC (Auto) 1 Urine RBC (Auto) 3 11/13/18 11/14/18 11/14/18 15:36 04:00 04:00 WBC 6.9 RBC 4.46 Hgb 12.7 Hct 36.8 MCV 82 MCH 28.6 MCHC 34.6 RDW 14.7 H Plt Count 239 Seg Neutrophils % Lymphocytes % Monocytes % Eosinophils % Basophils % Absolute Neutrophils Absolute Lymphocytes Absolute Monocytes Absolute Eosinophils Absolute Basophils Sodium 139.1 142.4 Potassium 3.3 L 3.5 L Chloride 105 111 H Carbon Dioxide 26 23 Anion Gap 8 8 BUN 7 6 L Creatinine 0.58 0.54 Est GFR ( Amer) > 60 > 60 Est GFR (Non-Af Amer) > 60 > 60 Glucose 86 92 Calcium 8.5 8.4 Total Bilirubin 0.6 AST 16 ALT 18 Alkaline Phosphatase 57 Total Protein 6.0 L Albumin 3.6 Lipase 282.8 TSH Urine Color Urine Appearance Urine pH Ur Specific [place] Urine Protein Urine Glucose (UA) Urine Ketones Urine Blood Urine Nitrite Ur Leukocyte Esterase Urine WBC (Auto) Urine RBC (Auto) 11/14/18 04:00 WBC RBC Hgb Hct MCV MCH MCHC RDW Plt Count Seg Neutrophils % Lymphocytes % Monocytes % Eosinophils % Basophils % Absolute Neutrophils Absolute Lymphocytes Absolute Monocytes Absolute Eosinophils Absolute Basophils Sodium Potassium Chloride Carbon Dioxide Anion Gap BUN Creatinine Est GFR ( Amer) Est GFR (Non-Af Amer) Glucose Calcium Total Bilirubin AST ALT Alkaline Phosphatase Total Protein Albumin Lipase TSH 0.84 Urine Color Urine Appearance Urine pH Ur Specific [place] Urine Protein Urine Glucose (UA) Urine Ketones Urine Blood Urine Nitrite Ur Leukocyte Esterase Urine WBC (Auto) Urine RBC (Auto) Impressions: Abdomen/Pelvis CT 11/13/18 14:36 IMPRESSION: Sigmoid diverticulitis. Qualifiers - * PATIENT BEING DISCHARGED WITH ANY OF THE FOLLOWING DIAGNOSIS: No
== END 2018-11-14 10:30 | disposition home or self-care (01) ==
LOC: ER 13:43 → EH 17:58 → 4N 20:08
PROVIDERS: ADMIT Internal Medicine; ATTEND Internal Medicine
DX: K57.32 Diverticulitis of large intestine without perforation or abscess without bleeding (principal); E87.6 Hypokalemia; F17.219 Nicotine dependence, cigarettes, with unspecified nicotine-induced disorders; F41.9 Anxiety disorder, unspecified; I10 Essential (primary) hypertension; Z98.890 Other specified postprocedural states; Z79.899 Other long term (current) drug therapy; Z87.442 Personal history of urinary calculi; Z32.02 Encounter for pregnancy test, result negative
CPT/HCPCS: 99285; 96361; 96375; 96365; 36415 ×2; 87040; 83690; 84443; 85025; 85027; 81025; 80048; 80053; 81001; 74177; G0378 ×3; J3010; J3490; J2405; J7030 ×2; J2543 ×2

== ENCOUNTER 2019-11-02 10:52 | Inpatient (IN) | payer BC, OTHER ==
[2019-11-02] MEDS ORDERED: ONDANSETRON HCL INJ/PF 4 MG/2 ML SDV IV ONE ×2 (11:31→14:02)
[2019-11-02] MEDS ORDERED: MORPHINE SULFATE 10 MG/ML INJ IV ONE ×2 (11:31→14:01)
[2019-11-02] MEDS ORDERED: NORMAL SALINE 1000 ML 1,000 ML IV ONE ×2 (11:33→13:13)
--- NOTE | 2019-11-02 11:35 | ER Document Report ---
ED Medical Screen (RME) - General Chief Complaint: Abdominal Pain Stated Complaint: FEVER/ABDOMINAL PAIN/NAUSEA/DIAHERRA Time Seen by Provider: 11/02/19 11:28 Primary Care Provider: ELIJAH GONZALES DO [Primary Care Provider] - Follow up as needed Mode of Arrival: Wheelchair Information source: Patient Notes: 44-year-old female patient presenting to the emergency department with acute onset abdominal pain. Patient reports abdominal pain started in the middle of the night. She reports history of both pancreatitis and diverticulitis, states this feels similar to when she had diverticulitis. Patient reports pain is generalized across her entire abdomen and feels like someone is ripping her abdomen open. She reports associated nausea with vomiting as well as fever up to 102 at home. Exam: Generalized tenderness with palpation, patient appears to be in moderate distress, patient tearful in triage. I have greeted and performed a rapid initial assessment of this patient. A comprehensive ED assessment and evaluation of the patient, analysis of test results and completion of the medical decision making process will be conducted by additional ED providers. I have specifically instructed the patient or family members with the patient to immediately return to any nursing staff should anything change in the patient's condition or with their chief complaint. This medical record was dictated with voice recognizing software. There may be grammatical, syntax errors that are unintended. TRAVEL OUTSIDE OF THE [place] IN LAST 30 DAYS: No - Related Data Allergies/Adverse Reactions: No Known Allergies Allergy (Verified 11/02/19 11:21) Home Medications: HCTZ. Lisinopril. Xanax Past Medical History - Social History Chew tobacco use (# tins/day): No Frequency of alcohol use: Rare Drug Abuse: None - Past Medical History Cardiac Medical History: Reports: Hx Hypertension Denies: Hx Coronary Artery Disease, Hx Heart Attack Pulmonary Medical History: Reports: Hx Pneumonia - 2 YRS AGO Denies: Hx Asthma, Hx Bronchitis, Hx COPD Neurological Medical History: Denies: Hx Cerebrovascular Accident, Hx Seizures Renal/ Medical History: Reports: Hx Kidney Stones. Denies: Hx Peritoneal Dialysis GI Medical History: Reports: Hx Diverticulitis Musculoskeltal Medical History: Denies Hx Arthritis Past Surgical History: Reports: Hx Section - Immunizations Hx Diphtheria, Pertussis, Tetanus Vaccination: Yes Physical Exam - Vital signs Vitals: Temp Pulse Resp BP Pulse Ox 99.5 F 133 H 18 124/84 97 11/02/19 11:01 11/02/19 11:01 11/02/19 11:01 11/02/19 11:01 11/02/19 11:01 Course - Vital Signs Vital signs: Temp Pulse Resp BP Pulse Ox 99.5 F 133 H 18 124/84 97 11/02/19 11:21 11/02/19 11:21 11/02/19 11:21 11/02/19 11:21 11/02/19 11:21 Doctor's Discharge - Discharge Referrals: ELIJAH GONZALES DO [Primary Care Provider] - Follow up as needed
[2019-11-02 12:45] LABS: HEMATOCRIT 43.4 % (36.0-47.0); HEMOGLOBIN 14.9 g/dL (12.0-15.5); MEAN CORPUSCULAR HEMOGLOBIN 29.3 pg (27.0-33.4); MEAN CORPUSCULAR HGB CONC 34.4 g/dL (32.0-36.0); MEAN CORPUSCULAR VOLUME 85 fl (80-97); PLATELET COUNT 262 10^3/uL (150-450); RED BLOOD COUNT 5.09 10^6/uL (3.72-5.28); RED CELL DISTRIBUTION WIDTH 14.1 % (11.5-14.0); WHITE BLOOD COUNT 23.9 10^3/uL (4.0-10.5)
--- NOTE | 2019-11-02 12:45 | ER Document Report ---
Entered by RENETTA PIZANO SCRIBE 11/02/19 1214 Acting as scribe for:PAWAN BRICE MD ED GI/ - General Chief Complaint: Abdominal Pain Stated Complaint: FEVER/ABDOMINAL PAIN/NAUSEA/DIAHERRA Time Seen by Provider: 11/02/19 11:28 Primary Care Provider: ELIJAH GONZALES DO [Primary Care Provider] - Follow up as needed Mode of Arrival: Wheelchair Information source: Patient Notes: This 44 year old female patient with a history of sigmoid diverticulitis presents to the ED today with complaints of severe lower abdominal pain that began x1 day ago. Patient states that the pain feels similar to when she had diverticulitis, but the abdominal cramping is different. Patient reports that there is also "shooting pains in my flanks down to my hip". Patient states that the symptoms worsen when she walks, cough, or rides in a car. Patient notes that she felt constipated yesterday and took magnesium citrate for relief which resulted in diarrhea. Patient reports nausea, a subjective fever, and a chronic cough but denies vomiting. Patient notes that she started her period yesterday however the blood was old, brown, and "looks like it does at the end of my period." TRAVEL OUTSIDE OF THE [place] IN LAST 30 DAYS: No - Related Data Allergies/Adverse Reactions: No Known Allergies Allergy (Verified 11/02/19 11:21) Home Medications: HCTZ. Lisinopril. Xanax Past Medical History - General Information source: Patient - Social History Smoking Status: Current Every Day Smoker Cigarette use (# per day): Yes - 1 ppd Chew tobacco use (# tins/day): No Frequency of alcohol use: Rare Drug Abuse: None Family History: Hypertension, Other - states her dad has anxiety issues Patient has suicidal ideation: No Patient has homicidal ideation: No - Past Medical History Cardiac Medical History: Reports: Hx Hypertension Pulmonary Medical History: Reports: Hx Pneumonia - 2 YRS AGO Renal/ Medical History: Reports: Hx Kidney Stones GI Medical History: Reports: Hx Diverticulitis Past Surgical History: Reports: Hx Section - Immunizations Hx Diphtheria, Pertussis, Tetanus Vaccination: Yes Review of Systems - Review of Systems Constitutional: See HPI, Fever EENT: No symptoms reported Cardiovascular: No symptoms reported Respiratory: See HPI, Cough Gastrointestinal: See HPI, Abdominal pain, Diarrhea, Nausea, Other - abdominal cramps. denies: Vomiting Genitourinary: No symptoms reported Female Genitourinary: See HPI, Last menstrual period - started x1 day ago, but was not normal in that the blood appeared brown and old Musculoskeletal: See HPI, Other - flank pain Skin: No symptoms reported Hematologic/Lymphatic: No symptoms reported Neurological/Psychological: No symptoms reported -: Yes All other systems reviewed and negative Physical Exam - Vital signs Vitals: Temp Pulse Resp BP Pulse Ox 99.5 F 133 H 18 124/84 97 11/02/19 11:01 11/02/19 11:01 11/02/19 11:01 11/02/19 11:01 11/02/19 11:01 Interpretation: Tachycardic - General General appearance: Alert - HEENT Head: Normocephalic, Atraumatic Eyes: Normal Pupils: PERRL - Respiratory Respiratory status: No respiratory distress Chest status: Nontender Breath sounds: Nonproductive cough - chronic cough, Rhonchi Chest palpation: Normal - Cardiovascular Rhythm: Tachycardia Heart sounds: Normal auscultation Murmur: No - Abdominal Inspection: Normal Distension: No distension Bowel sounds: Hypoactive - bowel sounds present, but decreased Tenderness: Tender - right and left lower quadrants tender with palpation, Rebound - rebound tenderness with palpation, Other - abdomen soft Organomegaly: No organomegaly - Back Back: Normal, Nontender - Extremities General upper extremity: Normal inspection General lower extremity: Normal inspection - Neurological Neuro grossly intact: Yes - Psychological Associated symptoms: Normal affect, Normal mood - Skin Skin Temperature: Warm Skin Moisture: Dry Skin Color: Normal Course - Re-evaluation Re-evalutation: 11/02/19 14:33 CT scan shows sigmoid diverticulitis. Reviewing the records shows that she has been seen here today on 11/02/2019 with sigmoid diverticulitis, previously on 11/13/2018 with sigmoid diverticulitis and on 05/01/2018 with sigmoid diverticulitis. She reports that this is her fourth episode, however reviewing records here this is only the third CT documented diverticulitis in our system. - Vital Signs Vital signs: Temp Pulse Resp BP Pulse Ox 99.4 F 133 H 13 129/81 H 95 11/02/19 12:15 11/02/19 11:21 11/02/19 13:03 11/02/19 13:03 11/02/19 12:00 - Laboratory Result Diagrams: 11/02/19 12:08 11/02/19 12:08 Laboratory results interpreted by me: 11/02/19 11/02/19 11/02/19 12:08 12:08 13:03 WBC 23.9 H RDW 14.1 H Abs Neuts (Manual) 19.1 H Glucose 137 H Total Bilirubin 1.5 H Urine Protein 100 H Urine Ketones TRACE H Urine Blood MODERATE H - Diagnostic Test Radiology reviewed: Image reviewed, Reports reviewed - IV contrast CT scan abdomen pelvis shows sigmoid diverticulitis. - Consults Dr. Mcwilliams Time consulted: 14:13 Consulted provider: will come to ER Discharge - Discharge Clinical Impression: Diverticulitis of sigmoid colon, Tachycardia Leukocytosis Qualifiers: Leukocytosis type: bandemia Qualified Code(s): D72.825 - Bandemia Condition: Stable Disposition: ADMITTED INPATIENT Admitting Provider: Poppy (Hospitalist) Unit Admitted: Telemetry Referrals: ELIJAH GONZALES DO [Primary Care Provider] - Follow up as needed Scribe Attestation: 11/02/19 12:52 I personally performed the services described in the documentation, reviewed and edited the documentation which was dictated to the scribe in my presence, and it accurately records my words and actions. I personally performed the services described in the documentation, reviewed and edited the documentation which was dictated to the scribe in my presence, and it accurately records my words and actions.
[2019-11-02 12:58] LABS: ALBUMIN 4.5 g/dL (3.5-5.0); ALKALINE PHOSPHATASE 69 U/L (38-126); ANION GAP 11 (5-19); ASPARTATE AMINO TRANSFERASE 18 U/L (14-36); BILIRUBIN,DIRECT 0.2 mg/dL (0.0-0.4); BILIRUBIN,TOTAL 1.5 mg/dL (0.2-1.3); BLOOD UREA NITROGEN 11 mg/dL (7-20); CALCIUM 9.3 mg/dL (8.4-10.2); CARBON DIOXIDE 26 mmol/L (22-30); CHLORIDE 101 mmol/L (98-107); GLUCOSE 137 mg/dL (75-110); POTASSIUM 3.9 mmol/L (3.6-5.0); TOTAL PROTEIN 7.5 g/dL (6.3-8.2)
[2019-11-02 13:14] LABS: ABSOLUTE LYMPHOCYTES# (MANUAL) 3.6 10^3/uL (0.5-4.7); ABSOLUTE MONOCYTES # (MANUAL) 1.2 10^3/uL (0.1-1.4); ANISOCYTOSIS SLIGHT; BAND NEUTROPHILS % (MANUAL) 3 % (3-5); BASOPHILS % (MANUAL) 0 % (0-2); EOSINOPHILS % (MANUAL) 0 % (0-6); LYMPHOCYTES % (MANUAL) 13 % (13-45); MONOCYTES % (MANUAL) 5 % (3-13); SEGMENTED NEUTROPHILS % (MAN) 77 % (42-78); TOTAL CELLS COUNTED 100
[2019-11-02 13:15] LABS: PLATELET COMMENT ADEQUATE
[2019-11-02 13:35] LABS: APPEARANCE,URINE SLIGHTLY-CLOUDY; BILIRUBIN,URINE NEGATIVE (NEGATIVE); COLOR,URINE YELLOW; GLUCOSE, URINE NEGATIVE (NEGATIVE); KETONES,URINE TRACE mg/dL (NEGATIVE); LEUKOCYTE ESTERASE,URINE NEGATIVE (NEGATIVE); NITRITE,URINE NEGATIVE (NEGATIVE); PROTEIN,URINE 100 mg/dL (NEGATIVE); URINE SPECIFIC GRAVITY 1.024; UROBILINOGEN,URINE NEGATIVE mg/dL (<2.0)
[2019-11-02] MEDS ORDERED: ERTAPENEM SODIUM INJ 1 GM VIAL IV ONE (13:37)
[2019-11-02] MEDS ORDERED: RINGERS SOLUTION,LACTATED 1,000 ML IV ONE (13:40)
--- NOTE | 2019-11-02 14:21 | RADIOLOGY REPORT (SQ) ---
EXAM DESCRIPTION: CT ABD/PELVIS WITH IV ONLY COMPLETED DATE/TIME: 11/02/2019 1:54 pm REASON FOR STUDY: abd pain, hx of diverticulitis COMPARISON: CT abdomen pelvis 10/13/2017, 05/01/2018, 11/13/2018 TECHNIQUE: CT scan of the abdomen and pelvis performed using helical scanning technique with dynamic intravenous contrast injection. No oral contrast. Images reviewed with lung, soft tissue, and bone windows. Reconstructed coronal and sagittal MPR images reviewed. Delayed images for evaluation of the urinary system also acquired. All images stored on PACS. All CT scanners at this facility use dose modulation, iterative reconstruction, and/or weight based d osing when appropriate to reduce radiation dose to as low as reasonably achievable (ALARA). [facility]: Dose Right [facility]: CareDose [facility]: Dose Right [facility]: Teradose 4D [facility]: SAS [employer] CONTRAST TYPE AND DOSE: contrast/concentration: Isovue 350.00 mg/ml; Total Contrast Delivered: 100.0 ml; Total Saline Delivered: 70.0 ml RENAL FUNCTION: GFR > 60. RADIATION DOSE: CT Rad equipment meets quality standard of care and radiation dose reduction techniq ues were employed. CTDIvol: 10.1 - 14.1 mGy. DLP: 1475 mGy-cm.. LIMITATIONS: None. FINDINGS: AP proximal sigmoid colon is markedly abnormal, with wall thickening, luminal narrowing, a nd surrounding inflammation in the adjacent pelvic fat. Multiple diverticuli are present in this are a. No gross free air or abscess. No free fluid. Inflamed segment of diverticulum abuts the right o vary on coronal images 43-48. This is most likely related to diverticulitis. Underlying malignant c olon mass could not entirely be excluded No bowel obstruction. No free intraperitoneal air or free fluid. Findings discussed with Dr. Marsh in the emergency room, 1400 hours 11/02/2019. LOWER CHEST: No significant findings. No nodules or infiltrates. LIVER: Normal size. No dilated ducts. There are 3 small nodules in the liver, which could either re present hemangiomas or adenomas. These are unchanged over the series of exams dating back to 2017, w ith a 2 cm enhancing nodule in the left lobe liver subdiaphragmatic surface axial image 13/111, a 2 c m hypodense nodule in the left lobe liver at the confluence of the hepatic veins axial image 18/111, and a 2 cm hypodense nodule in the posterior right lobe liver axial image 21. SPLEEN: Normal size. No focal lesions. PANCREAS: No masses. No significant calcifications. No adjacent inflammation or peripancreatic fluid collections. Pancreatic duct not dilated. GALLBLADDER: No identified stones by CT criteria. No inflammatory changes to suggest cholecystitis. ADRENAL GLANDS: No significant masses or asymmetry. RIGHT KIDNEY AND URETER: No solid masses. No significant calcifications. No hydronephrosis or hyd roureter. LEFT KIDNEY AND URETER: No solid masses. No significant calcifications. No hydronephrosis or hydr oureter. AORTA AND VESSELS: No aneurysm. No dissection. Renal arteries, SMA, celiac without stenosis. RETROPERITONEUM: No retroperitoneal adenopathy, hemorrhage or masses. BOWEL AND PERITONEAL CAVITY: No oral contrast. Proximal sigmoid colon wall thickening, luminal narrowing and surrounding inflammatory change worriso me for segmental diverticulitis. No adjacent abscess or free air/ free fluid. No CT evidence of bowel obstruction. APPENDIX: Normal. PELVIS: No mass. No free fluid. Normal bladder. Normal size female pelvic organs ABDOMINAL WALL: No masses. No hernias. BONES: No significant or acute findings. OTHER: No other significant finding. IMPRESSION: Proximal sigmoid colon wall thickening, luminal narrowing and surrounding inflammation m ost likely from diverticulitis. No abscess. Malignancy sigmoid colon could not entirely be excluded . Findings discussed with the emergency room attending physician TECHNICAL DOCUMENTATION: JOB ID: [id number] Quality ID # [id number]: Final reports with documentation of one or more dose reduction techniques (e.g., Au tomated exposure control, adjustment of the mA and/or kV according to patient size, use of iterative reconstruction technique) 2010 [email or web address]- All Rights Reserved Reading location - IP/workstation name: [email or web address]
--- NOTE | 2019-11-02 15:14 | PDOC H&P ---
History of Present Illness Admission Date/PCP: ELIJAH GONZALES DO History of Present Illness: RASHMI HODGE is a 44 year old female with 4 prior episodes of diverticulitis who presents with 1 day of worsening lower abdominal pain. She says she felt like she had to have a large bowel movement she had a lot of pain in her pelvis and rectum but could only pass a very small amount of stool. She said it reminded her of her previous episodes and so she started taking some stool softeners but this did not seem to help. She is not had any fevers. She is not had any nausea or vomiting. No shortness of breath. No dysuria. She was tachycardic and had a leukocytosis and a CT images seem to demonstrate a sigmoid diverticulitis. She is being admitted for IV fluids and IV antibiotics. Past Medical History Cardiac Medical History: Reports: Hypertension Denies: Coronary Artery Disease, Myocardial Infarction Pulmonary Medical History: Reports: Pneumonia - 2 YRS AGO Denies: Asthma, Bronchitis, Chronic Obstructive Pulmonary Disease (COPD) Neurological Medical History: Denies: Seizures GI Medical History: Reports: Diverticulitis Musculoskeltal Medical History: Denies: Arthritis Hematology: Denies: Anemia Past Surgical History Past Surgical History: Reports: Section Social History Smoking Status: Current Every Day Smoker Electronic Cigarette use?: No Frequency of Alcohol Use: None Hx Recreational Drug Use: No Hx Prescription Drug Abuse: No Family History Family History: Hypertension, Other - states her dad has anxiety issues Parental Family History Reviewed: Yes Children Family History Reviewed: Yes Sibling(s) Family History Reviewed.: Yes Medication/Allergy Allergies/Adverse Reactions: No Known Allergies Allergy (Verified 11/02/19 11:21) Review of Systems All systems: reviewed and no additional remarkable complaints except as stated - All systems were reviewed and were negative except as noted in the HPI Physical Exam Vital Signs: Temp Pulse Resp BP Pulse Ox 99.4 F 133 H 13 129/81 H 95 11/02/19 12:15 11/02/19 11:21 11/02/19 13:03 11/02/19 13:03 11/02/19 12:00 Intake & Output 11/01/19 11/02/19 11/03/19 06:59 06:59 06:59 Intake Total 1000 Balance 1000 Weight 94.4 kg General appearance: PRESENT: no acute distress, cooperative, obese Head exam: PRESENT: atraumatic, normocephalic Eye exam: PRESENT: EOMI, PERRLA. ABSENT: conjunctival injection, nystagmus, scleral icterus Ear exam: PRESENT: normal external ear exam Mouth exam: PRESENT: moist, neck supple Throat exam: ABSENT: post pharyngeal erythema Neck exam: PRESENT: full ROM. ABSENT: carotid bruit, JVD, lymphadenopathy, meningismus, tenderness, thyromegaly Respiratory exam: PRESENT: clear to auscultation melvin, symmetrical, unlabored. ABSENT: accessory muscle use, chest wall tenderness, crackles, prolonged expiratory phas, rhonchi, tachypnea, wheezes Cardiovascular exam: PRESENT: +S1, +S2, tachycardia Pulses: PRESENT: normal carotid pulses Vascular exam: PRESENT: normal capillary refill GI/Abdominal exam: PRESENT: normal bowel sounds, soft, tenderness - Lower mid abdomen near the pelvis. ABSENT: distended, guarding, rebound Extremities exam: ABSENT: clubbing, pedal edema Musculoskeletal exam: PRESENT: normal inspection. ABSENT: deformity Neurological exam: PRESENT: alert, awake, oriented to person, oriented to place, oriented to time, oriented to situation, CN II-XII grossly intact. ABSENT: motor sensory deficit Psychiatric exam: PRESENT: appropriate affect, normal mood Skin exam: PRESENT: dry, warm Results Laboratory Results: 11/02/19 12:08 11/02/19 12:08 11/02/19 11/02/19 11/02/19 12:08 12:08 12:08 WBC 23.9 H RBC 5.09 Hgb 14.9 Hct 43.4 MCV 85 MCH 29.3 MCHC 34.4 RDW 14.1 H Plt Count 262 Seg Neutrophils % Not Reportable Sodium 137.5 Potassium 3.9 Chloride 101 Carbon Dioxide 26 Anion Gap 11 BUN 11 Creatinine 0.72 Est GFR ( Amer) > 60 Glucose 137 H Calcium 9.3 Total Bilirubin 1.5 H AST 18 Alkaline Phosphatase 69 Total Protein 7.5 Albumin 4.5 Lipase 77.0 Serum HCG, Qual NEGATIVE Urine Color Urine Appearance Urine pH Ur Specific [place] Urine Protein Urine Glucose (UA) Urine Ketones Urine Blood Urine Nitrite Ur Leukocyte Esterase Urine WBC (Auto) Urine RBC (Auto) 11/02/19 13:03 WBC RBC Hgb Hct MCV MCH MCHC RDW Plt Count Seg Neutrophils % Sodium Potassium Chloride Carbon Dioxide Anion Gap BUN Creatinine Est GFR ( Amer) Glucose Calcium Total Bilirubin AST Alkaline Phosphatase Total Protein Albumin Lipase Serum HCG, Qual Urine Color YELLOW Urine Appearance SLIGHTLY-CLOUDY Urine pH 9.0 Ur Specific [place] 1.024 Urine Protein 100 H Urine Glucose (UA) NEGATIVE Urine Ketones TRACE H Urine Blood MODERATE H Urine Nitrite NEGATIVE Ur Leukocyte Esterase NEGATIVE Urine WBC (Auto) 2 Urine RBC (Auto) 9 Impressions: Abdomen/Pelvis CT 11/02/19 11:32 IMPRESSION: Proximal sigmoid colon wall thickening, luminal narrowing and surrounding inflammation most likely from diverticulitis. No abscess. Malignancy sigmoid colon could not entirely be excluded. Findings discussed with the emergency room attending physician Assessment and Plan - Diagnosis (1) Sepsis Qualifiers: Sepsis type: sepsis due to unspecified organism Sepsis acute organ d ysfunction status: without acute organ dysfunction Qualified Code(s): A41.9 - Sepsis, unspecified organism Is this a current diagnosis for this admission?: Yes (2) Sigmoid diverticulitis Is this a current diagnosis for this admission?: Yes - Plan Summary Summary: Blood cultures are pending. She had a dose of Invanz in the ER and has been started on some IV fluids. We will continue on IV Cipro and Flagyl. We will put her on clear liquids for now but she should be able to advance her diet as tolerated. We will monitor her urine output and her renal function. - Time Time Spent with patient: 35 or more minutes - Inpatient Certification Based on my medical assessment, after consideration of the patient's comorbidities, presenting symptoms, or acuity I expect that the services needed warrant INPATIENT care.: Yes I certify that my determination is in accordance with my understanding of Medicare's requirements for reasonable and necessary INPATIENT services [42 CFR 412.3e].: Yes Medical Necessity: Need Close Monitoring Due to Risk of Patient Decompensation, Need For IV Fluids, Need for IV Antibiotics
[2019-11-02] MEDS: RINGERS SOLUTION,LACTATED 1,000 ML IV PRN (15:51)
[2019-11-02] MEDS: HYDROCODONE/ACETAMINOPHEN 5-325 MG TABLET PO PRN (16:51)
[2019-11-02] MEDS: METRONIDAZOLE 500 MG/NS RTU 500 MG/100 ML RTUPB IV SCH (18:41)
[2019-11-02] MEDS: HEPARIN SOD (PORCINE) 5,000 UNIT/ML 1 ML VIAL SUBCUT SCH (22:42)
[2019-11-02] MEDS: CIPROFLOXACIN 400 MG/D5W RTU 400 MG/200 ML RTUPB IV SCH (22:42)
[2019-11-02] MEDS: KETOROLAC TROMETHAMINE INJ/PF 30 MG/1 ML SDV IV PRN (22:48)
[2019-11-03] MEDS: METRONIDAZOLE 500 MG/NS RTU 500 MG/100 ML RTUPB IV SCH ×4 (00:19→17:12)
[2019-11-03] MEDS: HYDROCODONE/ACETAMINOPHEN 5-325 MG TABLET PO PRN ×2 (05:11→18:01)
[2019-11-03] MEDS: HEPARIN SOD (PORCINE) 5,000 UNIT/ML 1 ML VIAL SUBCUT SCH ×3 (05:12→21:41)
[2019-11-03 06:39] LABS: HEMATOCRIT 36.4 % (36.0-47.0); MEAN CORPUSCULAR HEMOGLOBIN 29.6 pg (27.0-33.4); MEAN CORPUSCULAR HGB CONC 34.3 g/dL (32.0-36.0); MEAN CORPUSCULAR VOLUME 86 fl (80-97); PLATELET COUNT 201 10^3/uL (150-450); RED BLOOD COUNT 4.22 10^6/uL (3.72-5.28); RED CELL DISTRIBUTION WIDTH 13.7 % (11.5-14.0); WHITE BLOOD COUNT 16.2 10^3/uL (4.0-10.5)
[2019-11-03 06:40] LABS: HEMOGLOBIN 12.5 g/dL (12.0-15.5)
[2019-11-03 06:57] LABS: ANION GAP 9 (5-19); BLOOD UREA NITROGEN 9 mg/dL (7-20); CALCIUM 8.1 mg/dL (8.4-10.2); CARBON DIOXIDE 24 mmol/L (22-30); CHLORIDE 105 mmol/L (98-107); GLUCOSE 106 mg/dL (75-110); POTASSIUM 3.6 mmol/L (3.6-5.0)
[2019-11-03] MEDS: RINGERS SOLUTION,LACTATED 1,000 ML IV PRN ×2 (09:10→17:11)
[2019-11-03] MEDS: CIPROFLOXACIN 400 MG/D5W RTU 400 MG/200 ML RTUPB IV SCH ×2 (09:10→21:44)
[2019-11-03] MEDS: KETOROLAC TROMETHAMINE INJ/PF 30 MG/1 ML SDV IV PRN (13:51)
[2019-11-03] MEDS: NICOTINE 14 MG/24 HR PATCH.TD24 TD SCH (15:46)
--- NOTE | 2019-11-03 17:26 | EKG REPORT ---
SEVERITY:- ABNORMAL ECG - SINUS TACHYCARDIA PROBABLE INFERIOR INFARCT, AGE INDETERMINATE : Confirmed by: Oxana Dumas 03-Nov-2019 17:25:15
[2019-11-03] MEDS ORDERED: ONDANSETRON HCL INJ/PF 4 MG/2 ML SDV IV PRN (17:36)
--- NOTE | 2019-11-03 17:48 | PDOC PROGRESS REPORT ---
Subjective Progress Note for:: 11/03/19 Subjective:: No adverse events overnight. She wants to try to advance her diet. She says she still has some lower abdominal pain. She left the floor without permission earlier and went outside and got in a car with someone and left the property, then came back smelling of cigarette smoke. We told her that she cannot leave the building. She asked if she can have a nicotine patch. Reason For Visit: SEPSIS,DIVERTICULITIS Physical Exam Vital Signs: Temp Pulse Resp BP Pulse Ox 98.1 F 99 16 130/73 H 98 11/03/19 15:47 11/03/19 15:47 11/03/19 15:47 11/03/19 15:47 11/03/19 15:47 Intake & Output 11/02/19 11/03/19 11/04/19 06:59 06:59 06:59 Intake Total 4680 1448 Balance 4680 1448 Weight 97.5 kg General appearance: PRESENT: no acute distress, disheveled, obese Respiratory exam: PRESENT: clear to auscultation melvin, symmetrical, unlabored. ABSENT: accessory muscle use, chest wall tenderness, crackles, prolonged expiratory phas, rhonchi, tachypnea, wheezes Cardiovascular exam: PRESENT: RRR, +S1, +S2 Pulses: PRESENT: normal carotid pulses Vascular exam: PRESENT: normal capillary refill GI/Abdominal exam: PRESENT: normal bowel sounds, soft, tenderness - Mild, lower mid abdomen. ABSENT: distended, guarding, rebound Extremities exam: ABSENT: clubbing, pedal edema Musculoskeletal exam: PRESENT: normal inspection. ABSENT: deformity Neurological exam: PRESENT: alert, awake, oriented to person, oriented to place, oriented to situation Psychiatric exam: PRESENT: appropriate affect, normal mood Skin exam: PRESENT: dry, warm Results Laboratory Results: 11/03/19 05:22 11/03/19 05:22 11/03/19 11/03/19 05:22 05:22 WBC 16.2 H RBC 4.22 Hgb 12.5 D Hct 36.4 MCV 86 MCH 29.6 MCHC 34.3 RDW 13.7 Plt Count 201 Sodium 138.4 Potassium 3.6 Chloride 105 Carbon Dioxide 24 Anion Gap 9 BUN 9 Creatinine 0.61 Est GFR ( Amer) > 60 Glucose 106 Calcium 8.1 L Impressions: Abdomen/Pelvis CT 11/02/19 11:32 IMPRESSION: Proximal sigmoid colon wall thickening, luminal narrowing and surrounding inflammation most likely from diverticulitis. No abscess. Malignancy sigmoid colon could not entirely be excluded. Findings discussed with the emergency room attending physician Assessment and Plan - Diagnosis (1) Sepsis Qualifiers: Sepsis type: sepsis due to unspecified organism Sepsis acute organ dysfunction status: without acute organ dysfunction Qualified Code(s): A41.9 - Sepsis, unspecified organism Is this a current diagnosis for this admission?: Yes Plan: Improving with IV antibiotics and IV fluids (2) Sigmoid diverticulitis Is this a current diagnosis for this admission?: Yes Plan: Improving with IV Cipro and Flagyl. Will ultimately convert her over to oral Cipro and Flagyl. Have recommended that she follows up with Dr. Ang, who she has seen previously, regarding whether or not she should try to continue to medically manage her diverticulosis or have a partial colectomy to prevent persistent recurring episodes of diverticulitis. - Plan Summary Summary: Blood cultures are pending. She had a dose of Invanz in the ER and has been started on some IV fluids. We will continue on IV Cipro and Flagyl. We will put her on clear liquids for now but she should be able to advance her diet as tolerated. We will monitor her urine output and her renal function. - Time Time Spent with patient: 15-24 minutes
[2019-11-04] MEDS: METRONIDAZOLE 500 MG/NS RTU 500 MG/100 ML RTUPB IV SCH ×3 (00:20→12:50)
[2019-11-04] MEDS: HEPARIN SOD (PORCINE) 5,000 UNIT/ML 1 ML VIAL SUBCUT SCH (05:17)
[2019-11-04] MEDS: RINGERS SOLUTION,LACTATED 1,000 ML IV PRN (05:22)
[2019-11-04 06:02] LABS: HEMATOCRIT 35.7 % (36.0-47.0); HEMOGLOBIN 12.5 g/dL (12.0-15.5); MEAN CORPUSCULAR HEMOGLOBIN 29.9 pg (27.0-33.4); MEAN CORPUSCULAR HGB CONC 34.9 g/dL (32.0-36.0); MEAN CORPUSCULAR VOLUME 86 fl (80-97); PLATELET COUNT 186 10^3/uL (150-450); RED BLOOD COUNT 4.17 10^6/uL (3.72-5.28); RED CELL DISTRIBUTION WIDTH 13.8 % (11.5-14.0); WHITE BLOOD COUNT 7.2 10^3/uL (4.0-10.5)
[2019-11-04 06:25] LABS: ANION GAP 7 (5-19); BLOOD UREA NITROGEN 8 mg/dL (7-20); CARBON DIOXIDE 25 mmol/L (22-30); CHLORIDE 108 mmol/L (98-107); GLUCOSE 93 mg/dL (75-110); POTASSIUM 3.5 mmol/L (3.6-5.0)
[2019-11-04] MEDS: CIPROFLOXACIN 400 MG/D5W RTU 400 MG/200 ML RTUPB IV SCH (11:14)
[2019-11-04] MEDS: NICOTINE 14 MG/24 HR PATCH.TD24 TD SCH (11:14)
[2019-11-04] MEDS: KETOROLAC TROMETHAMINE INJ/PF 30 MG/1 ML SDV IV PRN (11:27)
[2019-11-04 14:34] VITALS: BP 130/73
--- NOTE | 2019-11-04 16:54 | PDOC DISCHARGE SUMMARY ---
Impression - Admit/DC Date/PCP Admission Date/Primary Care Provider: 11/02/19 15:18 ELIJAH GONZALES DO Discharge Date: 11/04/19 - Discharge Diagnosis (1) Sepsis Is this a current diagnosis for this admission?: Yes (2) Sigmoid diverticulitis Is this a current diagnosis for this admission?: Yes - Assessment Summary: Blood cultures are pending. She had a dose of Invanz in the ER and has been started on some IV fluids. We will continue on IV Cipro and Flagyl. We will put her on clear liquids for now but she should be able to advance her diet as tolerated. We will monitor her urine output and her renal function. - Additional Information Resuscitation Status: Full Code Discharge Diet: Cardiac Discharge Activity: Activity As Tolerated, Other Referrals: ELIJAH GONZALES DO [Primary Care Provider] - 11/13/19 4:00 pm Prescriptions: Ciprofloxacin HCl [Cipro 500 mg Tablet] 500 mg PO BID #28 tablet Metronidazole [Flagyl 500 mg Tablet] 500 mg PO TID #42 tablet Home Medications: Ciprofloxacin HCl [Cipro 500 mg Tablet] 500 mg PO BID #28 tablet 11/04/19 Metronidazole [Flagyl 500 mg Tablet] 500 mg PO TID #42 tablet 11/04/19 History of Present Illiness History of Present Illness: RASHMI HODGE is a 44 year old female with 4 prior episodes of diverticulitis who presents with 1 day of worsening lower abdominal pain. She says she felt like she had to have a large bowel movement she had a lot of pain in her pelvis and rectum but could only pass a very small amount of stool. She said it reminded her of her previous episodes and so she started taking some stool softeners but this did not seem to help. She is not had any fevers. She is not had any nausea or vomiting. No shortness of breath. No dysuria. She was tachycardic and had a leukocytosis and a CT images seem to demonstrate a sigmoid diverticulitis. She is being admitted for IV fluids and IV antibiotics. Hospital Course Hospital Course: She responded well to IV antibiotics and was able to progress her diet. She was feeling well enough to sneak out of the hospital a few times to go smoke despite us telling her that that was not allowed. We will advance her to a regular diet and she tolerated that well. She can continue 2-week course of Cipro and Flagyl at home. Organ arrange for her to have follow-up with Dr. Ang within a couple of weeks to discuss her options for management of her diverticulosis. Her labs and exam were reassuring and she was discharged in good condition. Physical Exam Vital Signs: Temp Pulse Resp BP Pulse Ox 98.1 F 93 16 130/73 H 99 11/04/19 14:32 11/04/19 14:32 11/04/19 14:32 11/04/19 14:32 11/04/19 14:32 Intake & Output 11/03/19 11/04/19 11/05/19 06:59 06:59 06:59 Intake Total 4680 3588 542 Balance 4680 3588 542 Weight 97.5 kg 98.1 kg General appearance: PRESENT: no acute distress, disheveled, obese Respiratory exam: PRESENT: clear to auscultation melvin, symmetrical, unlabored. ABSENT: accessory muscle use, chest wall tenderness, crackles, prolonged expiratory phas, rhonchi, tachypnea, wheezes Cardiovascular exam: PRESENT: RRR, +S1, +S2 Pulses: PRESENT: normal carotid pulses Vascular exam: PRESENT: normal capillary refill GI/Abdominal exam: PRESENT: normal bowel sounds, soft, tenderness - Mild, lower mid abdomen. ABSENT: distended, guarding, rebound Extremities exam: ABSENT: clubbing, pedal edema Musculoskeletal exam: PRESENT: normal inspection. ABSENT: deformity Neurological exam: PRESENT: alert, awake, oriented to person, oriented to place, oriented to situation Psychiatric exam: PRESENT: appropriate affect, normal mood Skin exam: PRESENT: dry, warm Results Laboratory Results: WBC 7.2 10^3/uL (4.0-10.5) 11/04/19 05:55 RBC 4.17 10^6/uL (3.72-5.28) 11/04/19 05:55 Hgb 12.5 g/dL (12.0-15.5) 11/04/19 05:55 Hct 35.7 % (36.0-47.0) L 11/04/19 05:55 MCV 86 fl (80-97) 11/04/19 05:55 MCH 29.9 pg (27.0-33.4) 11/04/19 05:55 MCHC 34.9 g/dL (32.0-36.0) 11/04/19 05:55 RDW 13.8 % (11.5-14.0) 11/04/19 05:55 Plt Count 186 10^3/uL (150-450) 11/04/19 05:55 Lymph % (Auto) Not Reportable 11/02/19 12:08 [place] % (Auto) Not Reportable 11/02/19 12:08 Eos % (Auto) Not Reportable 11/02/19 12:08 Baso % (Auto) Not Reportable 11/02/19 12:08 Absolute Neuts (auto) Not Reportable 11/02/19 12:08 Absolute Lymphs (auto) Not Reportable 11/02/19 12:08 Absolute Monos (auto) Not Reportable 11/02/19 12:08 Absolute Eos (auto) Not Reportable 11/02/19 12:08 Absolute Basos (auto) Not Reportable 11/02/19 12:08 Total Counted 100 11/02/19 12:08 Seg Neutrophils % Not Reportable 11/02/19 12:08 Seg Neuts % (Manual) 77 % (42-78) 11/02/19 12:08 Band Neutrophils % 3 % (3-5) 11/02/19 12:08 Lymphocytes % (Manual) 13 % (13-45) 11/02/19 12:08 Atypical Lymphs % 2 % (0) 11/02/19 12:08 Monocytes % (Manual) 5 % (3-13) 11/02/19 12:08 Eosinophils % (Manual) 0 % (0-6) 11/02/19 12:08 Basophils % (Manual) 0 % (0-2) 11/02/19 12:08 Abs Neuts (Manual) 19.1 10^3/uL (1.7-8.2) H 11/02/19 12:08 Abs Lymphs (Manual) 3.6 10^3/uL (0.5-4.7) 11/02/19 12:08 Abs Monocytes (Manual) 1.2 10^3/uL (0.1-1.4) 11/02/19 12:08 Absolute Eos (Manual) 0.0 10^3/uL (0.0-0.6) 11/02/19 12:08 Abs Basophils (Manual) 0.0 10^3/uL (0.0-0.2) 11/02/19 12:08 Platelet Comment ADEQUATE 11/02/19 12:08 Anisocytosis SLIGHT 11/02/19 12:08 Sodium 140.3 mmol/L (137-145) 11/04/19 05:55 Potassium 3.5 mmol/L (3.6-5.0) L 11/04/19 05:55 Chloride 108 mmol/L (98-107) H 11/04/19 05:55 Carbon Dioxide 25 mmol/L (22-30) 11/04/19 05:55 Anion Gap 7 (5-19) 11/04/19 05:55 BUN 8 mg/dL (7-20) 11/04/19 05:55 Creatinine 0.59 mg/dL (0.52-1.25) 11/04/19 05:55 Est GFR ( Amer) > 60 (>60) 11/04/19 05:55 Est GFR (MDRD) Non-Af > 60 (>60) 11/04/19 05:55 Glucose 93 mg/dL (75-110) 11/04/19 05:55 Calcium 8.0 mg/dL (8.4-10.2) L 11/04/19 05:55 Total Bilirubin 1.5 mg/dL (0.2-1.3) H 11/02/19 12:08 Direct Bilirubin 0.2 mg/dL (0.0-0.4) 11/02/19 12:08 Neonat Total Bilirubin Not Reportable 11/02/19 12:08 Neonat Direct Bilirubin Not Reportable 11/02/19 12:08 Neonat Indirect Bili Not Reportable 11/02/19 12:08 AST 18 U/L (14-36) 11/02/19 12:08 ALT 18 U/L (<35) 11/02/19 12:08 Alkaline Phosphatase 69 U/L (38-126) 11/02/19 12:08 Total Protein 7.5 g/dL (6.3-8.2) 11/02/19 12:08 Albumin 4.5 g/dL (3.5-5.0) 11/02/19 12:08 Lipase 77.0 U/L (23-300) 11/02/19 12:08 Serum HCG, Qual NEGATIVE (NEGATIVE) 11/02/19 12:08 Urine Color YELLOW 11/02/19 13:03 Urine Appearance SLIGHTLY-CLOUDY 11/02/19 13:03 Urine pH 9.0 (5.0-9.0) 11/02/19 13:03 Ur Specific [place] 1.024 11/02/19 13:03 Urine Protein 100 mg/dL (NEGATIVE) H 11/02/19 13:03 Urine Glucose (UA) NEGATIVE mg/dL (NEGATIVE) 11/02/19 13:03 Urine Ketones TRACE mg/dL (NEGATIVE) H 11/02/19 13:03 Urine Blood MODERATE (NEGATIVE) H 11/02/19 13:03 Urine Nitrite NEGATIVE (NEGATIVE) 11/02/19 13:03 Urine Bilirubin NEGATIVE (NEGATIVE) 11/02/19 13:03 Urine Urobilinogen NEGATIVE mg/dL (<2.0) 11/02/19 13:03 Ur Leukocyte Esterase NEGATIVE (NEGATIVE) 11/02/19 13:03 Urine WBC (Auto) 2 /HPF 11/02/19 13:03 Urine RBC (Auto) 9 /HPF 11/02/19 13:03 Urine Bacteria (Auto) TRACE /HPF 11/02/19 13:03 Squamous Epi Cells Auto 7 /HPF 11/02/19 13:03 Urine Mucus (Auto) FEW /LPF 11/02/19 13:03 Urine Ascorbic Acid NEGATIVE (NEGATIVE) 11/02/19 13:03 Impressions: Abdomen/Pelvis CT 11/02/19 11:32 IMPRESSION: Proximal sigmoid colon wall thickening, luminal narrowing and surrounding inflammation most likely from diverticulitis. No abscess. Malignancy sigmoid colon could not entirely be excluded. Findings discussed with the emergency room attending physician Plan Time Spent: Greater than 30 Minutes Stroke Is this a Stroke Patient?: No Acute Heart Failure - Is this a Heart Failure Patient?: No
== END 2019-11-04 15:10 | disposition home or self-care (01) | DRG 872 ==
LOC: ER 10:52 → EH 15:18 → 4N 17:43
PROVIDERS: ADMIT Family Medicine; ATTEND Family Medicine
DX: A41.9 Sepsis, unspecified organism (principal); K57.32 Diverticulitis of large intestine without perforation or abscess without bleeding; E66.9 Obesity, unspecified; I10 Essential (primary) hypertension; F17.210 Nicotine dependence, cigarettes, uncomplicated; Z68.32 Body mass index [BMI] 32.0-32.9, adult
CPT/HCPCS: 36415; 74177; 80048; 80053; 81001; 83690; 84703; 85025; 85027; 87040; 93005; 93010; 96361; 96365; 96375; 99285; J0744; J1335; J1885; J2270; J2405; J3490; J7030; J7120

== ENCOUNTER 2020-03-18 13:49 | Emergency (ER) | payer BC ==
[2020-03-18] MEDS ORDERED: MORPHINE SULFATE 10 MG/ML INJ IV ONE (14:12)
[2020-03-18] MEDS ORDERED: ONDANSETRON HCL INJ/PF 4 MG/2 ML SDV IV ONE (14:12)
[2020-03-18] MEDS ORDERED: NORMAL SALINE 1000 ML 1,000 ML IV ONE (14:12)
--- NOTE | 2020-03-18 14:19 | ER Document Report ---
ED GI/ - General Chief Complaint: Abdominal Pain Stated Complaint: ABDOMINAL PAIN,FEVER,VOMITING Time Seen by Provider: 03/18/20 14:02 Primary Care Provider: ELIJAH COTTRELL DO [Primary Care Provider] - Follow up as needed Notes: CHIEF COMPLAINT: Abdominal pain and fever HPI: 44-year-old female with diverticulitis history that follows with Dr. Ang and Dr. Cottrell presenting for evaluation of continued and worsening abdominal pain with fever. Patient states she has had several bouts of diverticulitis in the last several months. This most recent bout of lower abdominal pain with fevers began at the beginning of June. She has been on Cipro and Flagyl for almost a month. States fever went up to 102 this week and she continues to have lower abdominal pain and is passing mucus stools. She reports she did have vomiting 2 to 3 days ago. Called her PCP today and was referred into the emergency department for evaluation. ROS: See HPI - all other systems were reviewed and are otherwise negative Constitutional: Positive fever Eyes: no drainage, no blurred vision ENT: no runny nose, no sore throat Cardiovascular: no chest pain Resp: no SOB, no cough GI: Positive vomiting, no diarrhea, positive abdominal pain : no dysuria Integumentary: no rash Allergy: no hives Musculoskeletal: no extremity pain or swelling Neurological: no numbness/tingling, no weakness MEDICATIONS: I agree with the patient medications as charted by the RN. ALLERGIES: I agree with the allergies as charted by the RN. PAST MEDICAL HISTORY/PAST SURGICAL HISTORY: Reviewed and agree as charted by RN. SOCIAL HISTORY: Reviewed and agree as charted by RN. FAMILY HISTORY: No significant familial comorbid conditions directly related to patient complaint EXAM: Reviewed vital signs as charted by RN. CONSTITUTIONAL: Alert and oriented and responds appropriately to questions. Well-appearing; well-nourished, moderate distress secondary to pain HEAD: Normocephalic; atraumatic EYES: PERRL; Conjunctivae clear, sclerae non-icteric ENT: normal nose; no rhinorrhea; moist mucous membranes; pharynx without lesions noted, no uvula edema or deviation, no tonsillar hypertrophy, phonation normal NECK: Supple without meningismus; non-tender; no cervical lymphadenopathy, no masses CARD: RRR; no murmurs, no clicks, no rubs, no gallops; symmetric distal pulses RESP: Normal chest excursion without splinting or tachypnea; breath sounds clear and equal bilaterally; no wheezes, no rhonchi, no rales, pulse oximetry 98% on room air not hypoxic ABD/GI: Normal bowel sounds; non-distended; soft, moderate tenderness across the lower abdomen bilaterally on palpation, no rebound, no guarding; no palpable organomegaly or masses. BACK: The back appears normal and is non-tender to palpation, there is no CVA tenderness EXT: Normal ROM in all joints; non-tender to palpation; no cyanosis, no effusions, no edema SKIN: Normal color for age and race; warm; dry; good turgor; no acute lesions noted NEURO: Moves all extremities equally; Motor and sensory function intact PSYCH: The patient's mood and manner are appropriate. Grooming and personal hygiene are appropriate. MDM: 44-year-old female presenting with continued lower abdominal pain with subjective fevers at home. Most recent fever was 2 days ago up to 102. She is on Cipro Flagyl currently for diverticulitis has been for approximately a month. Will obtain screening labs, plan for CT abdomen with oral contrast to evaluate for possible abscess TRAVEL OUTSIDE OF THE [place] IN LAST 30 DAYS: No - Related Data Allergies/Adverse Reactions: No Known Allergies Allergy (Verified 03/18/20 14:34) Past Medical History - Social History Smoking Status: Current Every Day Smoker Family History: Hypertension, Other - states her dad has anxiety issues - Past Medical History Cardiac Medical History: Reports: Hx Hypertension Denies: Hx Coronary Artery Disease, Hx Heart Attack Pulmonary Medical History: Reports: Hx Pneumonia - 2 YRS AGO Denies: Hx Asthma, Hx Bronchitis, Hx COPD Neurological Medical History: Denies: Hx Cerebrovascular Accident, Hx Seizures Renal/ Medical History: Reports: Hx Kidney Stones. Denies: Hx Peritoneal Dialysis GI Medical History: Reports: Hx Diverticulitis Musculoskeletal Medical History: Denies Hx Arthritis Past Surgical History: Reports: Hx Section - Immunizations Hx Diphtheria, Pertussis, Tetanus Vaccination: Yes Physical Exam - Vital signs Vitals: Temp 99.8 F 03/18/20 14:23 Course - Re-evaluation Re-evalutation: 03/18/20 18:[address] shows sigmoid diverticulitis, no abscess. discussed with attending Dr. Gonzalez, spoke with Dr. Paz, Hospitalist. patient is failing outpatient therapy. requests I speak with Dr. Ang, GI if possible about patient. He feels patient with recurrent episodes of diverticulitis may need surgery to evaluate patient. Requests I speak with surgery as well if unable to speak with Dr. Ang. requests I call him back after the consults. 03/18/20 18:[address] Du, Surgery to call me back regarding patient per hospitalist request 03/18/20 18:30 I went back and spoke with the patient again. She is tearful and uncomfortable. I spoke with her at length about her results, recurrent sigmoid diverticulitis that is not responding to outpatient therapy and I have let her know that I have been speaking with the hospitalist and have called up to the surgeon and her broomcorn press feeder. Patient now states that she would like to go home and does not want to be admitted. She is aware that her condition can worsen leading to disability, , worsened outcomes which may include surgery. She again reiterates that she would like to go home at this time does not want to be admitted despite our prior conversations about this. Discussed with attending. Will switch patient to Augmentin will give dose of Unasyn here in the emergency department. She is aware that she needs 24 to 48-hour follow-up either with her primary care provider or with gastroenterology for recheck and if condition worsen she should return for reevaluation - Vital Signs Vital signs: Temp Pulse Resp BP Pulse Ox 98.0 F 79 16 143/99 H 98 03/18/20 14:33 03/18/20 14:58 03/18/20 14:33 03/18/20 14:58 03/18/20 14:33 - Laboratory Result Diagrams: 03/18/20 14:35 03/18/20 14:35 Laboratory results interpreted by me: 03/18/20 03/18/20 03/18/20 14:18 14:35 14:35 Eos % (Auto) 10.5 H Absolute Eos (auto) 0.9 H Potassium 3.2 L Lipase 748.7 H Urine Blood SMALL H Ur Leukocyte Esterase TRACE H Discharge - Discharge Clinical Impression: Sigmoid diverticulitis, Failure of outpatient treatment Condition: Fair Disposition: HOME, SELF-CARE Additional Instructions: Take the medications as prescribed no driving if taking Percocet for pain. You declined admission to the hospital today for further management. Please make sure that you follow-up either with your primary care provider or with your broomcorn press feeder in the next 48 hours for reevaluation of your symptoms. If you continue to run high fevers at home or have worsening or uncontrolled abdominal pain at home please return for reevaluation as discussed Prescriptions: Amoxicillin/Potassium Clav [Augmentin 875-125 Tablet] 1 tab PO Q8H #21 tablet Oxycodone HCl/Acetaminophen [Percocet 5-325 mg Tablet] 1 tab PO Q4H PRN #15 tab PRN Reason: Referrals: ELIJAH COTTRELL DO [Primary Care Provider] - Follow up as needed
[2020-03-18 14:53] LABS: ABSOLUTE EOSINOPHILS # (AUTO) 0.9 10^3/uL (0.0-0.6); ABSOLUTE LYMPHOCYTES (AUTO) 2.8 10^3/uL (0.5-4.7); ABSOLUTE MONOCYTES (AUTO) 0.6 10^3/uL (0.1-1.4); BASOPHILS % (AUTO) 0.4 % (0-2); EOSINOPHILS % (AUTO) 10.5 % (0-6); HEMATOCRIT 42.8 % (36.0-47.0); HEMOGLOBIN 15.1 g/dL (12.0-15.5); LYMPHOCYTES % (AUTO) 34.1 % (13-45); MEAN CORPUSCULAR HEMOGLOBIN 29.5 pg (27.0-33.4); MEAN CORPUSCULAR HGB CONC 35.4 g/dL (32.0-36.0); MEAN CORPUSCULAR VOLUME 83 fl (80-97); MONOCYTES % (AUTO) 7.1 % (3-13); PLATELET COUNT 272 10^3/uL (150-450); RED BLOOD COUNT 5.14 10^6/uL (3.72-5.28); RED CELL DISTRIBUTION WIDTH 13.7 % (11.5-14.0); SEGMENTED NEUTROPHILS % (AUTO) 47.9 % (42-78); TOTAL CELLS COUNTED % (AUTO) 100 %; WHITE BLOOD COUNT 8.3 10^3/uL (4.0-10.5)
[2020-03-18 15:10] LABS: ALBUMIN 4.4 g/dL (3.5-5.0); ALKALINE PHOSPHATASE 64 U/L (38-126); ANION GAP 8 (5-19); ASPARTATE AMINO TRANSFERASE 22 U/L (14-36); BILIRUBIN,TOTAL 0.4 mg/dL (0.2-1.3); BLOOD UREA NITROGEN 7 mg/dL (7-20); CALCIUM 9.1 mg/dL (8.4-10.2); CARBON DIOXIDE 29 mmol/L (22-30); CHLORIDE 101 mmol/L (98-107); GLUCOSE 82 mg/dL (75-110); POTASSIUM 3.2 mmol/L (3.6-5.0); TOTAL PROTEIN 7.5 g/dL (6.3-8.2)
[2020-03-18] MEDS ORDERED: POTASSIUM CHLORIDE 10 MEQ TABLET.ER PO ONE (15:15)
[2020-03-18 15:19] LABS: APPEARANCE,URINE CLEAR; BILIRUBIN,URINE NEGATIVE (NEGATIVE); COLOR,URINE YELLOW; GLUCOSE, URINE NEGATIVE (NEGATIVE); KETONES,URINE NEGATIVE (NEGATIVE); LEUKOCYTE ESTERASE,URINE TRACE (NEGATIVE); NITRITE,URINE NEGATIVE (NEGATIVE); PROTEIN,URINE NEGATIVE (NEGATIVE); URINE SPECIFIC GRAVITY 1.009; UROBILINOGEN,URINE NEGATIVE mg/dL (<2.0)
--- NOTE | 2020-03-18 18:00 | RADIOLOGY REPORT (SQ) ---
EXAM DESCRIPTION: CT ABD/PELVIS WITH IV ORAL IMAGES COMPLETED DATE/TIME: 03/18/2020 5:44 pm REASON FOR STUDY: diverticulitis hx/on Abx/eval for abscess COMPARISON: 11/02/2019. TECHNIQUE: CT scan of the abdomen and pelvis performed using helical scanning technique with dynamic intravenous contrast injection. No oral contrast. Images reviewed with lung, soft tissue, and bone windows. Reconstructed coronal and sagittal MPR images reviewed. Delayed images for evaluation of the urinary system also acquired. All images stored on PACS. All CT scanners at this facility use dose modulation, iterative reconstruction, and/or weight based d osing when appropriate to reduce radiation dose to as low as reasonably achievable (ALARA). [facility]: Dose Right [facility]: CareDose [facility]: Dose Right [facility]: Teradose 4D [facility]: Flipzu CONTRAST TYPE AND DOSE: contrast/concentration: Isovue 350.00 mg/ml; Total Contrast Delivered: 100.0 ml; Total Saline Delivered: 31.3 ml RENAL FUNCTION: BUN 7 creatinine 0.65. RADIATION DOSE: CT Rad equipment meets quality standard of care and radiation dose reduction techniq ues were employed. CTDIvol: 11.0 - 15.6 mGy. DLP: 1576 mGy-cm.. LIMITATIONS: None. FINDINGS: LOWER CHEST: No significant findings. No nodules or infiltrates. LIVER: Normal size. Mild diffuse fatty infiltration. Stable enhancing lesion in the right lobe. No dilated ducts. SPLEEN: Normal size. No focal lesions. PANCREAS: No masses. No significant calcifications. No adjacent inflammation or peripancreatic fluid collections. Pancreatic duct not dilated. GALLBLADDER: No identified stones by CT criteria. No inflammatory changes to suggest cholecystitis. ADRENAL GLANDS: No significant masses or asymmetry. RIGHT KIDNEY AND URETER: No solid masses. No significant calcifications. No hydronephrosis or hyd roureter. LEFT KIDNEY AND URETER: No solid masses. No significant calcifications. No hydronephrosis or hydr oureter. AORTA AND VESSELS: No aneurysm. No dissection. Renal arteries, SMA, celiac without stenosis. RETROPERITONEUM: No retroperitoneal adenopathy, hemorrhage or masses. BOWEL AND PERITONEAL CAVITY: Colonic diverticulosis. Diffuse thickening of the wall of the sigmoid c olon with inflammatory changes. No abnormal fluid collection or extraluminal gas. No free fluid or p eritoneal masses. APPENDIX: Normal. PELVIS: No mass. No free fluid. Normal bladder. ABDOMINAL WALL: No masses. No hernias. BONES: No significant or acute findings. OTHER: No other significant finding. IMPRESSION: 1. SIGMOID DIVERTICULITIS. NO EVIDENCE OF ABSCESS. 2. MILD FATTY INFILTRATION OF THE LIVER. STABLE ENHANCING LESION IN THE RIGHT LOBE, POSSIBLY A HEMAN GIOMA OR ADENOMA. 3. NO OTHER SIGNIFICANT OR ACUTE FINDING IN THE ABDOMEN OR PELVIS ON CT SCAN WITH IV CONTRAST. TECHNICAL DOCUMENTATION: JOB ID: [id number] Quality ID # [id number]: Final reports with documentation of one or more dose reduction techniques (e.g., Au tomated exposure control, adjustment of the mA and/or kV according to patient size, use of iterative reconstruction technique) 2010 Attributor- All Rights Reserved Reading location - IP/workstation name: [email or web address]
[2020-03-18] MEDS ORDERED: KETOROLAC TROMETHAMINE INJ/PF 30 MG/1 ML SDV IV ONE (18:30)
[2020-03-18] MEDS ORDERED: AMPICILLIN SOD/SULBACTAM 3 GM VIAL IV ONE (18:30)
[2020-03-18 20:31] VITALS: BP 152/104
== END 2020-03-18 20:33 | disposition home or self-care (01) ==
LOC: ER 13:49
DX: K57.32 Diverticulitis of large intestine without perforation or abscess without bleeding (principal); R10.9 Unspecified abdominal pain; R50.9 Fever, unspecified; R11.10 Vomiting, unspecified; F17.200 Nicotine dependence, unspecified, uncomplicated; I10 Essential (primary) hypertension; Z87.442 Personal history of urinary calculi
CPT/HCPCS: 99284; 96361; 96374; 96375; 36415; 87040; 83690; 85025; 81025; 80053; 81001; 74177; J0295; J1885; J2270; J2405; J7030

== ENCOUNTER 2020-03-20 01:57 | Inpatient (IN) | payer BC ==
[2020-03-20 02:45] LABS: ABSOLUTE BASOPHILS # (AUTO) 0.1 10^3/uL (0.0-0.2); ABSOLUTE EOSINOPHILS # (AUTO) 0.7 10^3/uL (0.0-0.6); ABSOLUTE LYMPHOCYTES (AUTO) 1.4 10^3/uL (0.5-4.7); ABSOLUTE NEUT (AUTO) 11.2 10^3/uL (1.7-8.2); BASOPHILS % (AUTO) 0.4 % (0-2); EOSINOPHILS % (AUTO) 4.7 % (0-6); HEMATOCRIT 43.8 % (36.0-47.0); HEMOGLOBIN 15.3 g/dL (12.0-15.5); MEAN CORPUSCULAR HEMOGLOBIN 29.2 pg (27.0-33.4); MEAN CORPUSCULAR HGB CONC 34.9 g/dL (32.0-36.0); MEAN CORPUSCULAR VOLUME 84 fl (80-97); MONOCYTES % (AUTO) 7.1 % (3-13); PLATELET COUNT 314 10^3/uL (150-450); RED BLOOD COUNT 5.24 10^6/uL (3.72-5.28); RED CELL DISTRIBUTION WIDTH 14.1 % (11.5-14.0); SEGMENTED NEUTROPHILS % (AUTO) 77.8 % (42-78); TOTAL CELLS COUNTED % (AUTO) 100 %; WHITE BLOOD COUNT 14.4 10^3/uL (4.0-10.5)
[2020-03-20 02:47] LABS: ALBUMIN 4.3 g/dL (3.5-5.0); ALKALINE PHOSPHATASE 53 U/L (38-126); ANION GAP 10 (5-19); ASPARTATE AMINO TRANSFERASE 33 U/L (14-36); BILIRUBIN,TOTAL 0.6 mg/dL (0.2-1.3); BLOOD UREA NITROGEN 10 mg/dL (7-20); CALCIUM 9.2 mg/dL (8.4-10.2); CARBON DIOXIDE 23 mmol/L (22-30); CHLORIDE 104 mmol/L (98-107); GLUCOSE 132 mg/dL (75-110); POTASSIUM 3.8 mmol/L (3.6-5.0); TOTAL PROTEIN 7.1 g/dL (6.3-8.2)
[2020-03-20 02:49] LABS: APPEARANCE,URINE CLEAR; BILIRUBIN,URINE NEGATIVE (NEGATIVE); COLOR,URINE YELLOW; GLUCOSE, URINE NEGATIVE (NEGATIVE); KETONES,URINE NEGATIVE (NEGATIVE); LEUKOCYTE ESTERASE,URINE NEGATIVE (NEGATIVE); NITRITE,URINE NEGATIVE (NEGATIVE); PROTEIN,URINE NEGATIVE (NEGATIVE); URINE SPECIFIC GRAVITY 1.005; UROBILINOGEN,URINE NEGATIVE mg/dL (<2.0)
[2020-03-20] MEDS ORDERED: NORMAL SALINE 1000 ML 1,000 ML IV ONE (02:59)
[2020-03-20] MEDS ORDERED: ONDANSETRON HCL INJ/PF 4 MG/2 ML SDV IV ONE (03:01)
[2020-03-20] MEDS ORDERED: HYDROMORPHONE HCL INJ/PF 2 MG/ML AMPULE IV ONE (03:02)
--- NOTE | 2020-03-20 03:03 | ER Document Report ---
ED GI/ - General Chief Complaint: Abdominal Pain Stated Complaint: ABDOMINAL PAIN VOMITTING Time Seen by Provider: 03/20/20 02:32 Primary Care Provider: ELIJAH GONZALES DO [Primary Care Provider] - Follow up as needed Notes: 44-year-old woman history of diverticulitis apparently seen in the emergency department on 03/18/2020. At that time she was having a acute flareup of diverticulitis with fever. She was also having severe abdominal pain and passing mucus. After a attempt to get her admitted to the hospital and also consult surgery and GI the patient became frustrated and decided that she would try to be treated at home. She was switched to Augmentin rather than Cipro and Flagyl which she has been taking for a month and given a dose of Unasyn IV in the emergency department. She presents tonight with continued fever and sweats with associated severe abdominal pain and discomfort. TRAVEL OUTSIDE OF THE [place] IN LAST 30 DAYS: No - Related Data Allergies/Adverse Reactions: No Known Allergies Allergy (Verified 03/18/20 14:34) Past Medical History - Social History Smoking Status: Never Smoker Family History: Hypertension, Other - states her dad has anxiety issues Patient has homicidal ideation: No - Past Medical History Cardiac Medical History: Reports: Hx Hypertension Denies: Hx Coronary Artery Disease, Hx Heart Attack Pulmonary Medical History: Reports: Hx Pneumonia - 2 YRS AGO Denies: Hx Asthma, Hx Bronchitis, Hx COPD Neurological Medical History: Denies: Hx Cerebrovascular Accident, Hx Seizures Renal/ Medical History: Reports: Hx Kidney Stones. Denies: Hx Peritoneal Dialysis GI Medical History: Reports: Hx Diverticulitis Musculoskeletal Medical History: Denies Hx Arthritis Past Surgical History: Reports: Hx Section - Immunizations Hx Diphtheria, Pertussis, Tetanus Vaccination: Yes Review of Systems - Review of Systems Notes: Constitutional: + Fever. HENT: Negative for sore throat. Eyes: Negative for visual changes. Cardiovascular: Negative for chest pain. Respiratory: Negative for shortness of breath. Gastrointestinal: + Abdominal pain Genitourinary: Negative for dysuria. Musculoskeletal: Negative for back pain. Skin: Negative for rash. Neurological: Negative for headaches, weakness or numbness. 10 point ROS negative except as marked above and in HPI. Physical Exam - Vital signs Vitals: Resp Pulse Ox 9 L 94 03/20/20 02:18 03/20/20 02:18 - Notes Notes: PHYSICAL EXAMINATION: Physical Exam: General: Ill appearing 44-year-old woman in moderate distress secondary to abdominal pain, left lower quadrant HEENT: NC/AT, pupils equal round and reactive to light, MM moist,nares clear, oropharynx clear, airway patent Neck: supple, no adenopathy, no masses. Good range of motion Lungs: Tenderness in the left lower quadrant CVS: Regular rate and rhythm no murmur gallop or rub Abdomen: Soft, active, tenderness in the left lower quadrant with mild guarding and plus/minus rebound. Ext: No edema, clubbing or cyanosis. Neuro: Tearful, alert and responsive, moving all 4 extremities on command, cranial nerves intact, no focal findings Skin: Intact no open lesions, no rash PSYCH: Normal mood, normal affect. Course - Vital Signs Vital signs: Temp Pulse Resp BP Pulse Ox 98.7 F 93 14 120/80 97 03/20/20 05:26 03/20/20 05:26 03/20/20 05:26 03/20/20 05:26 03/20/20 05:26 03/20/20 05:34 Patient represents to the emergency department as a follow-up, recurrent and worsening diverticulitis. CT scan today shows a interval worsening with severe diffuse colitisdiverticulitis of the sigmoid involving a 12 cm segment of the with mural thickening of 2.1 cm. There is also a small amount of pericolic fluid and moderate fat stranding. I discussed the patient with the hospitalist Dr. Andreas Laureano, after some review of clinical course, we both agree that surgical consultation and maybe even surgical intervention would be the best course for this patient at this point. She has been on antibiotics on multiple occasions over the past year. Does not appear to be improving but having a worsening course. I have explained to the patient that we are having a surgeon see her because of her present status, she is in agreement with that plan. Patient does have a history of hypertension and some anxiety. She is followed by Dr. Simba Kuo is called, after the discussion of the patient presentation, he has agreed to admit the patient to the hospital for further evaluation and management. - Laboratory Result Diagrams: 03/20/20 02:17 03/20/20 02:17 Laboratory results interpreted by me: 03/20/20 03/20/20 03/20/20 02:17 02:17 02:17 WBC 14.4 H RDW 14.1 H Lymph % (Auto) 10.0 L Absolute Neuts (auto) 11.2 H Absolute Eos (auto) 0.7 H Sodium 136.8 L Glucose 132 H Urine Blood SMALL H 03/20/20 04:26 I have reviewed laboratory data and used this information for the treatment decisions regarding the patient. - Diagnostic Test Radiology reviewed: Image reviewed, Reports reviewed - CT abdomen and pelvis IV and oral contrast severe diffuse colitis/diverticulitis with sigmoid involvement 12 cm segment with mural thickening of 2.1 cm interval worsening small pericolic fluid and moderate fat stranding colonic diverticulitis she also has 3 hepatic lesions measuring up to 1.9 cm H without suspicious interval change compared with prior CT from October 2018. Will Critical Care Note - Critical Care Note Total time excluding time spent on procedures (mins): 50 - Critical care time spent obtaining history from patient or surrogate, discussions with consultants, development of treatment plan with patient or surrogate, evaluation of patient's response to treatment, examination of patient, ordering and performing treatment s and interventions, ordering and review of laboratory studies, re-evaluation of patient's condition, ordering and review of radiographic studies and review of old charts Discharge - Discharge Clinical Impression: Sigmoid diverticulitis, Colitis, LLQ abdominal pain Leukocytosis Qualifiers: Leukocytosis type: bandemia Qualified Code(s): D72.825 - Bandemia Condition: Stable Disposition: ADMITTED INPATIENT Admitting Provider: Surgicalist - Dr. Kuo Unit Admitted: Surgical Floor Referrals: ELIJAH GONZALES DO [Primary Care Provider] - Follow up as needed
--- NOTE | 2020-03-20 04:50 | RADIOLOGY REPORT (SQ) ---
EXAM DESCRIPTION: CT ABDOMEN PELVIS WITH IV CONTRAST COMPLETED DATE/TME: 03/20/2020 03:00 CLINICAL HISTORY: 44 years Female, Severe abdominal pain Comparison:Mar 18 2020, November 13, 2018. Technique: IV and oral contrast. Coronal and sagittal reformat. This exam was performed according to our departmental dose-optimization program, which includes automated exposure control, adjustment of the mA and/or kV according to patient size and/or use of iterative reconstruction technique. [facility]: Dose Right [facility]: CareDose [facility]: Dose Right [facility]: Teradose 4D [facility]: ReferralMD LIMITATIONS: None Findings: Severe diffuse colitis-diverticulitis of the sigmoid involves a 12 cm segment with mural thickening of 2.1 cm. Interval worsening. Small pericolic fluid and moderate fat stranding. Colonic diverticulosis. Three hepatic lesions measure up to 1.9 cm each without suspicious interval change compared with prior exam from October 2018. Hepatic steatosis. No pneumoperitoneum. Normal appendix. No gross evidence of gallbladder inflammation, hepatobiliary obstruction, or portal vein defect. No bowel obstruction. No hydronephrosis or hydroureter. No renal/ureteral stone. No evidence of abdominal aortic aneurysm. Inferior thorax, gallbladder, pancreas, spleen, adrenals, renal system, gastrointestinal tract, pelvic organs, lymphatics, vasculature, and musculoskeleton appear otherwise unremarkable. IMPRESSION: Severe diffuse colitis-diverticulitis of the sigmoid involves a 12 cm segment with mural thickening of 2.1 cm. Interval worsening. Differential etiologies include infectious, inflammatory, and neoplastic processes.
[2020-03-20] MEDS ORDERED: ERTAPENEM SODIUM INJ 1 GM VIAL IV ONE (05:01)
[2020-03-20] MEDS ORDERED: DEXTROSE 40% GEL 15 GM TUBE PO PRN ×2 (07:42)
[2020-03-20] MEDS ORDERED: MORPHINE SULFATE 10 MG/ML INJ IV PRN (07:42)
[2020-03-20] MEDS ORDERED: GLUCAGON,HUMAN RECOMB 1 MG INJ SUBCUT PRN (07:42)
[2020-03-20] MEDS ORDERED: DEXTROSE 50%-WATER 25 GM/50 ML DISP.SYRIN IV PRN ×2 (07:42)
--- NOTE | 2020-03-20 07:57 | PDOC H&P ---
History of Present Illness Admission Date/PCP: 03/20/20 05:43 ELIJAH GONZALES DO Patient complains of: Worsening abdominal pain History of Present Illness: RASHMI HODGE is a 44 year old female who was previously diagnosed with diverticulitis. She was given Cipro and Flagyl as an outpatient. She has progressed, despite outpatient management. She presented to the emergency department 2 days ago, where she left AGAINST MEDICAL ADVICE. Her condition has worsened over the last 2 days. She represents with worsening abdominal discomfort. She reports her pain is sharp and stabbing. It is located in bilateral lower quadrants. Nothing makes it better. Palpation and movement make it worse. She reports subjective fevers and chills, however her temperat ure in the ER has been normal. She denies chest pain, shortness of breath, nausea, vomiting, melena, hematochezia, hematemesis, blurry vision, headache, dizziness, orthostasis. Past Medical History Cardiac Medical History: Reports: Hypertension Denies: Coronary Artery Disease, Myocardial Infarction Pulmonary Medical History: Reports: Pneumonia - 2 YRS AGO Denies: Asthma, Bronchitis, Chronic Obstructive Pulmonary Disease (COPD) Neurological Medical History: Denies: Seizures GI Medical History: Reports: Diverticulitis Musculoskeltal Medical History: Denies: Arthritis Hematology: Denies: Anemia Past Surgical History Past Surgical History: Reports: Section Social History Smoking Status: Never Smoker Frequency of Alcohol Use: None Hx Recreational Drug Use: No Drugs: None Hx Prescription Drug Abuse: No Family History Family History: Hypertension, Other - states her dad has anxiety issues Parental Family History Reviewed: Yes Children Family History Reviewed: Yes Sibling(s) Family History Reviewed.: Yes Medication/Allergy Home Medications: Ciprofloxacin HCl [Cipro 500 mg Tablet] 500 mg PO BID #28 tablet 11/04/19 Metronidazole [Flagyl 500 mg Tablet] 500 mg PO TID #42 tablet 11/04/19 Amoxicillin/Potassium Clav [Augmentin 875-125 Tablet] 1 tab PO Q8H #21 tablet 03/18/20 Oxycodone HCl/Acetaminophen [Percocet 5-325 mg Tablet] 1 tab PO Q4H PRN #15 tab 03/18/20 Allergies/Adverse Reactions: No Known Allergies Allergy (Verified 03/18/20 14:34) Review of Systems Constitutional: PRESENT: chills, fatigue, fever(s). ABSENT: anorexia, headache(s), weakness Eyes: ABSENT: visual disturbances Ears: ABSENT: hearing changes Nose, Mouth, and Throat: ABSENT: sore throat Cardiovascular: ABSENT: chest pain Respiratory: ABSENT: cough, dyspnea Gastrointestinal: PRESENT: abdominal pain. ABSENT: hematemesis, hematochezia, melena, nausea, vomiting Genitourinary: ABSENT: dysuria Musculoskeletal: ABSENT: back pain Integumentary: ABSENT: pruritus, rash Neurological: ABSENT: confusion, convulsions, dizziness Psychiatric: ABSENT: anxiety, depression Endocrine: ABSENT: cold intolerance, heat intolerance Hematologic/Lymphatic: ABSENT: easy bleeding, easy bruising Physical Exam Vital Signs: Temp Pulse Resp BP Pulse Ox 98.7 F 93 17 128/79 H 94 03/20/20 05:26 03/20/20 05:26 03/20/20 06:01 03/20/20 06:00 03/20/20 06:01 Intake & Output 03/19/20 03/20/20 03/21/20 06:59 06:59 06:59 Intake Total 1000 Balance 1000 Weight 92.986 kg General appearance: PRESENT: cooperative, mild distress - Abdominal discomfort Head exam: PRESENT: atraumatic, normocephalic Eye exam: PRESENT: EOMI, PERRLA. ABSENT: scleral icterus Mouth exam: PRESENT: moist, neck supple Neck exam: ABSENT: meningismus, tenderness, thyromegaly, tracheal deviation Respiratory exam: PRESENT: unlabored. ABSENT: tachypnea, wheezes Cardiovascular exam: ABSENT: tachycardia GI/Abdominal exam: PRESENT: soft, tenderness - Moderate tenderness in bilateral lower quadrants, other - No signs of peritonitis. ABSENT: distended, rebound, rigid Rectal exam: PRESENT: deferred Extremities exam: ABSENT: clubbing Musculoskeletal exam: ABSENT: deformity Neurological exam: PRESENT: alert, awake, oriented to person, oriented to place, oriented to time, oriented to situation Psychiatric exam: ABSENT: agitated, anxious, depressed Focused psych exam: ABSENT: delusional Skin exam: ABSENT: cyanosis, erythema, jaundice Results Laboratory Results: 03/20/20 02:17 03/20/20 02:17 03/20/20 03/20/20 03/20/20 02:17 02:17 02:17 WBC 14.4 H RBC 5.24 Hgb 15.3 Hct 43.8 MCV 84 MCH 29.2 MCHC 34.9 RDW 14.1 H Plt Count 314 Seg Neutrophils % 77.8 Sodium 136.8 L Potassium 3.8 Chloride 104 Carbon Dioxide 23 Anion Gap 10 BUN 10 Creatinine 0.64 Est GFR ( Amer) > 60 Glucose 132 H Calcium 9.2 Total Bilirubin 0.6 AST 33 Alkaline Phosphatase 53 Total Protein 7.1 Albumin 4.3 Lipase 109.2 Urine Color YELLOW Urine Appearance CLEAR Urine pH 7.0 Ur Specific [place] 1.005 Urine Protein NEGATIVE Urine Glucose (UA) NEGATIVE Urine Ketones NEGATIVE Urine Blood SMALL H Urine Nitrite NEGATIVE Ur Leukocyte Esterase NEGATIVE Urine WBC (Auto) 1 Urine RBC (Auto) 1 Impressions: Abdomen/Pelvis CT 03/20/20 03:00 IMPRESSION: Severe diffuse colitis-diverticulitis of the sigmoid involves a 12 cm segment with mural thickening of 2.1 cm. Interval worsening. Differential etiologies include infectious, inflammatory, and neoplastic processes. Assessment & Plan - Diagnosis (1) Sigmoid diverticulitis Is this a current diagnosis for this admission?: Yes - Plan Summary Plan Summary: This is a 44-year-old female with acute sigmoid diverticulitis. She left the hospital AGAINST MEDICAL ADVICE several days ago. She was given outpatient antibiotics, which have failed. She represents with continued pain and thickening of her sigmoid colon on CT scan. She has previously been on Cipro, Flagyl, and Augmentin. I will admit her to the hospital and prescribe cefepime 2 g every 12 hours, as well as Flagyl 500 mg every 8 hours. The patient has te nderness on exam, without signs of overt peritonitis. Hopefully her symptoms will improve with antibiotics. If not, she may require colectomy (including the possibility of colostomy placement). This has been discussed with the patient. She has expressed understanding. At present, she does not appear toxic. Her heart rate is normal, her blood pressure is normal, her chemistry is normal, she does not have an acute abdomen. Further treatments will be determined based on the patient's clinical course.
[2020-03-20] MEDS: METRONIDAZOLE 500 MG/NS RTU 500 MG/100 ML RTUPB IV SCH ×3 (08:57→22:01)
[2020-03-20] MEDS ORDERED: CEFEPIME 2 GM/D5W RTU 2 GM/50 ML RTUPB IV SCH (10:00)
[2020-03-20] MEDS: FAMOTIDINE INJ/PF 20 MG/2 ML SDV IV SCH ×2 (10:00→22:01)
[2020-03-20] MEDS: CEFEPIME HCL 2 GM in DEXTROSE 5%-WATER 50 ML IV SCH ×2 (10:00→22:02)
[2020-03-20] MEDS: ENOXAPARIN SODIUM INJ 40 MG/0.4 ML DISP.SYRIN SUBCUT SCH (10:23)
[2020-03-20] MEDS: DEXTROSE 5%-LACTATED RINGERS 1,000 ML IV PRN ×2 (10:24→16:54)
[2020-03-20] MEDS: KETOROLAC TROMETHAMINE INJ/PF 30 MG/1 ML SDV IV SCH ×2 (13:01→22:01)
[2020-03-20] MEDS: ACETAMINOPHEN 1,000 MG/100 ML RTUPB IV SCH ×2 (13:01→22:01)
[2020-03-20] MEDS: ONDANSETRON HCL INJ/PF 4 MG/2 ML SDV IV PRN (16:56)
[2020-03-21] MEDS: ACETAMINOPHEN 1,000 MG/100 ML RTUPB IV SCH ×3 (05:55→21:38)
[2020-03-21] MEDS: METRONIDAZOLE 500 MG/NS RTU 500 MG/100 ML RTUPB IV SCH ×3 (05:55→22:07)
[2020-03-21] MEDS: KETOROLAC TROMETHAMINE INJ/PF 30 MG/1 ML SDV IV SCH ×3 (05:55→21:38)
[2020-03-21] MEDS: DEXTROSE 5%-LACTATED RINGERS 1,000 ML IV PRN (06:06)
[2020-03-21 06:27] LABS: ABSOLUTE EOSINOPHILS # (AUTO) 0.5 10^3/uL (0.0-0.6); ABSOLUTE LYMPHOCYTES (AUTO) 2.3 10^3/uL (0.5-4.7); ABSOLUTE MONOCYTES (AUTO) 0.8 10^3/uL (0.1-1.4); ABSOLUTE NEUT (AUTO) 3.2 10^3/uL (1.7-8.2); BASOPHILS % (AUTO) 0.5 % (0-2); EOSINOPHILS % (AUTO) 7.3 % (0-6); HEMATOCRIT 36.6 % (36.0-47.0); LYMPHOCYTES % (AUTO) 33.8 % (13-45); MEAN CORPUSCULAR HEMOGLOBIN 29.9 pg (27.0-33.4); MEAN CORPUSCULAR HGB CONC 35.7 g/dL (32.0-36.0); MEAN CORPUSCULAR VOLUME 84 fl (80-97); MONOCYTES % (AUTO) 11.8 % (3-13); PLATELET COUNT 210 10^3/uL (150-450); RED BLOOD COUNT 4.36 10^6/uL (3.72-5.28); RED CELL DISTRIBUTION WIDTH 13.8 % (11.5-14.0); SEGMENTED NEUTROPHILS % (AUTO) 46.6 % (42-78); TOTAL CELLS COUNTED % (AUTO) 100 %; WHITE BLOOD COUNT 6.9 10^3/uL (4.0-10.5)
[2020-03-21 06:43] LABS: ANION GAP 5 (5-19); BLOOD UREA NITROGEN 7 mg/dL (7-20); CALCIUM 8.3 mg/dL (8.4-10.2); CARBON DIOXIDE 29 mmol/L (22-30); CHLORIDE 103 mmol/L (98-107); GLUCOSE 86 mg/dL (75-110); POTASSIUM 3.5 mmol/L (3.6-5.0)
--- NOTE | 2020-03-21 09:50 | PDOC PROGRESS REPORT ---
Subjective Progress Note for:: 03/21/20 Subjective:: Feels better. Still having some lower abdominal pain. Had a bowel movement yesterday. Reason For Visit: ACUTE SIGMOID DIVERTICULITIS Physical Exam Vital Signs: Temp Pulse Resp BP Pulse Ox 98.3 F 65 17 119/68 100 03/21/20 00:00 03/21/20 00:00 03/21/20 00:00 03/21/20 00:00 03/21/20 00:00 Intake & Output 03/20/20 03/21/20 03/22/20 06:59 06:59 06:59 Intake Total 1000 2575 Output Total 100 Balance 1000 2475 Weight 92.986 kg 90.5 kg General appearance: PRESENT: no acute distress, cooperative Respiratory exam: PRESENT: clear to auscultation melvin Cardiovascular exam: PRESENT: RRR GI/Abdominal exam: PRESENT: other - Soft, nondistended, mild tenderness across the lower abdomen without peritoneal signs. Neurological exam: PRESENT: alert, awake Psychiatric exam: PRESENT: appropriate affect Results Laboratory Results: 03/21/20 05:14 03/21/20 05:14 03/21/20 03/21/20 05:14 05:14 WBC 6.9 RBC 4.36 Hgb 13.0 D Hct 36.6 MCV 84 MCH 29.9 MCHC 35.7 RDW 13.8 Plt Count 210 Seg Neutrophils % 46.6 Sodium 137.4 Potassium 3.5 L Chloride 103 Carbon Dioxide 29 Anion Gap 5 BUN 7 Creatinine 0.57 Est GFR ( Amer) > 60 Glucose 86 Calcium 8.3 L Impressions: Abdomen/Pelvis CT 03/20/20 03:00 IMPRESSION: Severe diffuse colitis-diverticulitis of the sigmoid involves a 12 cm segment with mural thickening of 2.1 cm. Interval worsening. Differential etiologies include infectious, inflammatory, and neoplastic processes. Assessment & Plan - Diagnosis (1) Sigmoid diverticulitis Is this a current diagnosis for this admission?: Yes Plan: Recurrent. Improving on antibiotics. Continue IV antibiotics. We will try clear liquids today. Encourage ambulation. Patient has not had a colonoscopy in a few years. I believe the best course of treatment for her would antibiotic therapy to cool down the process, followed by outpatient colonoscopy followed by semi-elective sigmoid colon resection.
[2020-03-21] MEDS: NICOTINE 21 MG/24 HR PATCH.TD24 TD SCH (10:21)
[2020-03-21] MEDS: FAMOTIDINE INJ/PF 20 MG/2 ML SDV IV SCH ×2 (10:22→21:39)
[2020-03-21] MEDS: CEFEPIME HCL 2 GM in DEXTROSE 5%-WATER 50 ML IV SCH ×2 (10:28→22:05)
[2020-03-21] MEDS: ENOXAPARIN SODIUM INJ 40 MG/0.4 ML DISP.SYRIN SUBCUT SCH (10:39)
[2020-03-21] MEDS: ONDANSETRON HCL INJ/PF 4 MG/2 ML SDV IV PRN (22:07)
[2020-03-22] MEDS: KETOROLAC TROMETHAMINE INJ/PF 30 MG/1 ML SDV IV SCH ×3 (05:43→21:19)
[2020-03-22] MEDS: ACETAMINOPHEN 1,000 MG/100 ML RTUPB IV SCH ×3 (05:43→21:18)
[2020-03-22] MEDS: METRONIDAZOLE 500 MG/NS RTU 500 MG/100 ML RTUPB IV SCH ×3 (05:43→21:18)
[2020-03-22] MEDS: ENOXAPARIN SODIUM INJ 40 MG/0.4 ML DISP.SYRIN SUBCUT SCH (10:30)
[2020-03-22] MEDS: FAMOTIDINE INJ/PF 20 MG/2 ML SDV IV SCH ×2 (10:35→21:18)
[2020-03-22] MEDS: CEFEPIME HCL 2 GM in DEXTROSE 5%-WATER 50 ML IV SCH ×2 (10:35→21:18)
[2020-03-22] MEDS: NICOTINE 21 MG/24 HR PATCH.TD24 TD SCH (10:35)
[2020-03-22] MEDS: ONDANSETRON HCL INJ/PF 4 MG/2 ML SDV IV PRN (10:43)
--- NOTE | 2020-03-22 11:34 | PDOC PROGRESS REPORT ---
Subjective Progress Note for:: 03/22/20 Subjective:: Feels better. Less pain. Reason For Visit: ACUTE SIGMOID DIVERTICULITIS Physical Exam Vital Signs: Temp Pulse Resp BP Pulse Ox 97.9 F 63 16 117/75 97 03/22/20 07:27 03/22/20 07:27 03/22/20 07:27 03/22/20 07:27 03/22/20 07:27 Intake & Output 03/21/20 03/22/20 03/23/20 06:59 06:59 06:59 Intake Total 2775 2600 Output Total 100 300 Balance 2675 2300 Weight 90.5 kg 91.2 kg General appearance: PRESENT: no acute distress, cooperative Respiratory exam: PRESENT: clear to auscultation melvin Cardiovascular exam: PRESENT: RRR GI/Abdominal exam: PRESENT: other - Soft, nondistended, mild lower abdominal tenderness without peritoneal signs. Results Laboratory Results: 03/21/20 05:14 03/21/20 05:14 Impressions: Abdomen/Pelvis CT 03/20/20 03:00 IMPRESSION: Severe diffuse colitis-diverticulitis of the sigmoid involves a 12 cm segment with mural thickening of 2.1 cm. Interval worsening. Differential etiologies include infectious, inflammatory, and neoplastic processes. Assessment & Plan - Diagnosis (1) Sigmoid diverticulitis Is this a current diagnosis for this admission?: Yes Plan: Improving with antibiotics. Will advance diet. Possible discharge home in the next couple of days. Will need colonoscopy as an outpatient followed by semielective sigmoid colon resection.
[2020-03-23] MEDS: ACETAMINOPHEN 1,000 MG/100 ML RTUPB IV SCH (05:36)
[2020-03-23] MEDS: KETOROLAC TROMETHAMINE INJ/PF 30 MG/1 ML SDV IV SCH (05:36)
[2020-03-23] MEDS: METRONIDAZOLE 500 MG/NS RTU 500 MG/100 ML RTUPB IV SCH (05:36)
[2020-03-23 05:53] LABS: ABSOLUTE EOSINOPHILS # (AUTO) 0.4 10^3/uL (0.0-0.6); ABSOLUTE LYMPHOCYTES (AUTO) 2.5 10^3/uL (0.5-4.7); ABSOLUTE MONOCYTES (AUTO) 0.9 10^3/uL (0.1-1.4); ABSOLUTE NEUT (AUTO) 4.9 10^3/uL (1.7-8.2); BASOPHILS % (AUTO) 0.3 % (0-2); EOSINOPHILS % (AUTO) 4.7 % (0-6); HEMATOCRIT 37.6 % (36.0-47.0); HEMOGLOBIN 13.2 g/dL (12.0-15.5); LYMPHOCYTES % (AUTO) 28.5 % (13-45); MEAN CORPUSCULAR HEMOGLOBIN 29.5 pg (27.0-33.4); MEAN CORPUSCULAR HGB CONC 35.1 g/dL (32.0-36.0); MEAN CORPUSCULAR VOLUME 84 fl (80-97); MONOCYTES % (AUTO) 9.9 % (3-13); PLATELET COUNT 254 10^3/uL (150-450); RED BLOOD COUNT 4.47 10^6/uL (3.72-5.28); RED CELL DISTRIBUTION WIDTH 13.4 % (11.5-14.0); SEGMENTED NEUTROPHILS % (AUTO) 56.6 % (42-78); TOTAL CELLS COUNTED % (AUTO) 100 %; WHITE BLOOD COUNT 8.6 10^3/uL (4.0-10.5)
[2020-03-23 06:09] LABS: BLOOD UREA NITROGEN 8 mg/dL (7-20); CALCIUM 8.5 mg/dL (8.4-10.2); CARBON DIOXIDE 28 mmol/L (22-30); GLUCOSE 86 mg/dL (75-110); POTASSIUM 3.5 mmol/L (3.6-5.0)
[2020-03-23 06:15] LABS: CHLORIDE 105 mmol/L (98-107)
[2020-03-23 06:16] LABS: ANION GAP 4 (5-19)
[2020-03-23] MEDS: ONDANSETRON HCL INJ/PF 4 MG/2 ML SDV IV PRN (07:43)
--- NOTE | 2020-03-23 08:29 | PDOC DISCHARGE SUMMARY ---
General - Admit/Disc Date/PCP Admission Date/Primary Care Provider: 03/20/20 05:43 ELIJAH GONZALES DO Discharge Date: 03/23/20 - Discharge Diagnosis Final Diagnosis: diverticulitis - Assessment Summary: This is a 44-year-old female who is admitted to the hospital with increasing pain in left lower quadrant CT scan in the emergency room was consistent with diverticulitis. She was admitted to the hospital and placed on IV antibiotics. After approximately 24 hours in the hospital she is began feeling better on IV antibiotics and she started having bowel movements. She was continued under observation with IV antibiotics for the next 2 days during which time she slowly improved. She was started on a clear liquid diet which was advanced to a soft diet by the time of discharge. Today she is hospital day 3 she is tolerating a soft diet her pain is resolved she feels well and wants to be discharged home. This is her second or third bout of diverticulitis and she requests surgical intervention for sigmoid colectomy in the future to avoid recurrent bouts. She will be discharged home on Bactrim and Flagyl she will follow-up with me in 7 to 10 days after discharge we will obtain a repeat CT scan then and make plans for an elective sigmoid colectomy. Final diagnosis is sigmoid diverticulitis. - Additional Information Resuscitation Status: Full Code Discharge Diet: As Tolerated Discharge Activity: Activity As Tolerated Referrals: ELIJAH GONZALES DO [Primary Care Provider] - 03/27/20 2:45 pm Prescriptions: Sulfamethoxazole/Trimethoprim [Bactrim Ds Tablet] 1 each PO BID #20 tablet Metronidazole [Flagyl 250 mg Tablet] 250 mg PO Q8 #30 tablet Home Medications: Ciprofloxacin HCl [Cipro 500 mg Tablet] 500 mg PO BID #28 tablet 11/04/19 Alprazolam [Xanax] 1 mg PO TIDP PRN 03/20/20 Hydrochlorothiazide [Hydrodiuril 25 mg Tablet] 25 mg PO QAM 03/20/20 Lisinopril [Zestril] 40 mg PO DAILY 03/20/20 Metronidazole [Flagyl 500 mg Tablet] 500 mg PO Q12 03/20/20 Metronidazole [Flagyl 250 mg Tablet] 250 mg PO Q8 #30 tablet 03/23/20 Sulfamethoxazole/Trimethoprim [Bactrim Ds Tablet] 1 each PO BID #20 tablet 05/09/20 Additional Information: pt needs a f/u with me in 10-14 days. History of Present Illiness History of Present Illness: RASHMI HODGE is a 44 year old female Physical Exam Vital Signs: Temp Pulse Resp BP Pulse Ox 98.2 F 63 14 157/92 H 98 03/22/20 23:37 03/22/20 23:37 03/22/20 23:37 03/22/20 23:37 03/22/20 23:37 Intake & Output 03/22/20 03/23/20 03/24/20 06:59 06:59 06:59 Intake Total 2600 1870 Output Total 300 850 Balance 2300 1020 Weight 91.2 kg 91.2 kg Results Laboratory Results: WBC 8.6 10^3/uL (4.0-10.5) 03/23/20 05:19 RBC 4.47 10^6/uL (3.72-5.28) 03/23/20 05:19 Hgb 13.2 g/dL (12.0-15.5) 03/23/20 05:19 Hct 37.6 % (36.0-47.0) 03/23/20 05:19 MCV 84 fl (80-97) 03/23/20 05:19 MCH 29.5 pg (27.0-33.4) 03/23/20 05:19 MCHC 35.1 g/dL (32.0-36.0) 03/23/20 05:19 RDW 13.4 % (11.5-14.0) 03/23/20 05:19 Plt Count 254 10^3/uL (150-450) 03/23/20 05:19 Lymph % (Auto) 28.5 % (13-45) 03/23/20 05:19 [place] % (Auto) 9.9 % (3-13) 03/23/20 05:19 Eos % (Auto) 4.7 % (0-6) 03/23/20 05:19 Baso % (Auto) 0.3 % (0-2) 03/23/20 05:19 Absolute Neuts (auto) 4.9 10^3/uL (1.7-8.2) 03/23/20 05:19 Absolute Lymphs (auto) 2.5 10^3/uL (0.5-4.7) 03/23/20 05:19 Absolute Monos (auto) 0.9 10^3/uL (0.1-1.4) 03/23/20 05:19 Absolute Eos (auto) 0.4 10^3/uL (0.0-0.6) 03/23/20 05:19 Absolute Basos (auto) 0.0 10^3/uL (0.0-0.2) 03/23/20 05:19 Seg Neutrophils % 56.6 % (42-78) 03/23/20 05:19 Sodium 137.3 mmol/L (137-145) 03/23/20 05:19 Potassium 3.5 mmol/L (3.6-5.0) L 03/23/20 05:19 Chloride 105 mmol/L (98-107) 03/23/20 05:19 Carbon Dioxide 28 mmol/L (22-30) 03/23/20 05:19 Anion Gap 4 (5-19) L 03/23/20 05:19 BUN 8 mg/dL (7-20) 03/23/20 05:19 Creatinine 0.62 mg/dL (0.52-1.25) 03/23/20 05:19 Est GFR ( Amer) > 60 (>60) 03/23/20 05:19 Est GFR (MDRD) Non-Af > 60 (>60) 03/23/20 05:19 Glucose 86 mg/dL (75-110) 03/23/20 05:19 Calcium 8.5 mg/dL (8.4-10.2) 03/23/20 05:19 Total Bilirubin 0.6 mg/dL (0.2-1.3) 03/20/20 02:17 Direct Bilirubin 0.0 mg/dL (0.0-0.4) 03/20/20 02:17 Neonat Total Bilirubin Not Reportable 03/20/20 02:17 Neonat Direct Bilirubin Not Reportable 03/20/20 02:17 Neonat Indirect Bili Not Reportable 03/20/20 02:17 AST 33 U/L (14-36) 03/20/20 02:17 ALT 22 U/L (<35) 03/20/20 02:17 Alkaline Phosphatase 53 U/L (38-126) 03/20/20 02:17 Total Protein 7.1 g/dL (6.3-8.2) 03/20/20 02:17 Albumin 4.3 g/dL (3.5-5.0) 03/20/20 02:17 Lipase 109.2 U/L (23-300) 03/20/20 02:17 Urine Color YELLOW 03/20/20 02:17 Urine Appearance CLEAR 03/20/20 02:17 Urine pH 7.0 (5.0-9.0) 03/20/20 02:17 Ur Specific [place] 1.005 03/20/20 02:17 Urine Protein NEGATIVE mg/dL (NEGATIVE) 03/20/20 02:17 Urine Glucose (UA) NEGATIVE mg/dL (NEGATIVE) 03/20/20 02:17 Urine Ketones NEGATIVE mg/dL (NEGATIVE) 03/20/20 02:17 Urine Blood SMALL (NEGATIVE) H 03/20/20 02:17 Urine Nitrite NEGATIVE (NEGATIVE) 03/20/20 02:17 Urine Bilirubin NEGATIVE (NEGATIVE) 03/20/20 02:17 Urine Urobilinogen NEGATIVE mg/dL (<2.0) 03/20/20 02:17 Ur Leukocyte Esterase NEGATIVE (NEGATIVE) 03/20/20 02:17 Urine WBC (Auto) 1 /HPF 03/20/20 02:17 Urine RBC (Auto) 1 /HPF 03/20/20 02:17 Urine Bacteria (Auto) 3+ /HPF 03/20/20 02:17 Squamous Epi Cells Auto 2 /HPF 03/20/20 02:17 Urine Mucus (Auto) RARE /LPF 03/20/20 02:17 Urine Ascorbic Acid NEGATIVE (NEGATIVE) 03/20/20 02:17 Impressions: Abdomen/Pelvis CT 03/20/20 03:00 IMPRESSION: Severe diffuse colitis-diverticulitis of the sigmoid involves a 12 cm segment with mural thickening of 2.1 cm. Interval worsening. Differential etiologies include infectious, inflammatory, and neoplastic processes.
[2020-03-23 08:42] VITALS: BP 132/85
== END 2020-03-23 09:15 | disposition home or self-care (01) | DRG 392 ==
LOC: ER 01:57 → EH 05:43 → 4N 06:45
PROVIDERS: ATTEND Surgery
DX: K57.32 Diverticulitis of large intestine without perforation or abscess without bleeding (principal); I10 Essential (primary) hypertension; D72.825 Bandemia
CPT/HCPCS: 36415; 74177; 80048; 80053; 81001; 83690; 85025; 87040; 94799; 96361; 96365; 96375; 99285; J0131; J0692; J1170; J1335; J1885; J2405; J3490; J7030; J7060; J7121; S0028

== ENCOUNTER → 2020-04-05 | Outpatient (CLI) | payer BC ==
--- NOTE | 2020-04-05 13:59 | RADIOLOGY REPORT (SQ) ---
EXAM DESCRIPTION: CT ABD/PELVIS WITH IV ORAL IMAGES COMPLETED DATE/TIME: 04/05/2020 1:46 pm REASON FOR STUDY: K57.92 DVTRCLI OF INTEST, PART UNSP, W/O PERF OR ABSCESS W/O BLEED K57.92 DVTRCLI OF INTEST, PART UNSP, W/O PERF OR ABSCESS W/O COMPARISON: 03/18/2020, 03/20/2020 TECHNIQUE: CT scan of the abdomen and pelvis performed using helical scanning technique with dynamic intravenous contrast injection. No oral contrast. Images reviewed with lung, soft tissue, and bone windows. Reconstructed coronal and sagittal MPR images reviewed. Delayed images for evaluation of the urinary system also acquired. All images stored on PACS. All CT scanners at this facility use dose modulation, iterative reconstruction, and/or weight based d osing when appropriate to reduce radiation dose to as low as reasonably achievable (ALARA). [facility]: Dose Right [facility]: CareDose [facility]: Dose Right [facility]: Teradose 4D [facility]: [employer] CONTRAST TYPE AND DOSE: contrast/concentration: Isovue 350.00 mg/ml; Total Contrast Delivered: 100.0 ml; Total Saline Delivered: 72.0 ml RENAL FUNCTION: BUN 8, creatinine 0.62 RADIATION DOSE: CT Rad equipment meets quality standard of care and radiation dose reduction techniq ues were employed. CTDIvol: 8.6 - 8.7 mGy. DLP: 956 mGy-cm.. LIMITATIONS: None. FINDINGS: LOWER CHEST: No significant findings. No nodules or infiltrates. LIVER: Small hepatic cyst in the left lobe is again noted. No suspicious findings. SPLEEN: Normal size. No focal lesions. PANCREAS: No masses. No significant calcifications. No adjacent inflammation or peripancreatic fluid collections. Pancreatic duct not dilated. GALLBLADDER: No identified stones by CT criteria. No inflammatory changes to suggest cholecystitis. ADRENAL GLANDS: No significant masses or asymmetry. RIGHT KIDNEY AND URETER: No solid masses. No significant calcifications. No hydronephrosis or hyd roureter. LEFT KIDNEY AND URETER: No solid masses. No significant calcifications. No hydronephrosis or hydr oureter. AORTA AND VESSELS: No aneurysm. No dissection. Renal arteries, SMA, celiac without stenosis. RETROPERITONEUM: No retroperitoneal adenopathy, hemorrhage or masses. BOWEL AND PERITONEAL CAVITY: Persistent bowel wall thickening in inflammatory changes involving the s igmoid colon. This is improved from prior study. No abscess or fluid collection. Scattered diverti culi. APPENDIX: Normal. PELVIS: No mass. No free fluid. Normal bladder. ABDOMINAL WALL: No masses. No hernias. BONES: No significant or acute findings. OTHER: No other significant finding. IMPRESSION: Persistent inflammatory changes involving the sigmoid colon. Overall there is been sign ificant improvement from 03/20/2020. No free air or focal fluid collections. TECHNICAL DOCUMENTATION: JOB ID: [id number] Quality ID # [id number]: Final reports with documentation of one or more dose reduction techniques (e.g., Au tomated exposure control, adjustment of the mA and/or kV according to patient size, use of iterative reconstruction technique) 2010 [employer]- All Rights Reserved Reading location - IP/workstation name: [email or web address]
== END ==
LOC: RAD 10:11
PROVIDERS: ATTEND Surgery
DX: K57.92 Diverticulitis of intestine, part unspecified, without perforation or abscess without bleeding (principal)
CPT/HCPCS: 74177

== ENCOUNTER 2020-04-30 14:05 | Inpatient (IN) | payer BC ==
[2020-04-30] MEDS ORDERED: KETOROLAC TROMETHAMINE INJ/PF 30 MG/1 ML SDV IV ONE ×2 (14:23→17:09)
--- NOTE | 2020-04-30 14:25 | ER Document Report ---
ED Medical Screen (RME) - General Chief Complaint: Abdominal Pain Stated Complaint: ABDOMINAL PAIN Time Seen by Provider: 04/30/20 14:16 Primary Care Provider: CHRISTIANE BRYAN MD [Primary Care Provider] - Follow up as needed Notes: HPI: 44-year-old female presenting to the emergency department complaining of severe lower abdominal pain from diverticulitis. Patient states she was admitted in March for diverticulitis. Placed on antibiotics, states the pain is never really gone away. Patient states that the pain got worse over the last few days and she went to [facility], had a CT done they told her she still had diverticulitis but no abscess and put her on Augmentin and Flagyl. She has been taking these medications but the pain is progressively gotten worse over the last 3 days she has had chills and subjective fevers at home. States that she was being managed by Dr. Feliciano/Bright in the hospital previously PHYSICAL EXAMINATION: Patient is moderately uncomfortable and crying holding her lower abdomen. Moderate pain across the entire lower pelvis and left lower quadrant region I have greeted and performed a rapid initial assessment of this patient. A comprehensive ED assessment and evaluation of the patient, analysis of test results and completion of medical decision making process will be conducted by an additional ED providers. TRAVEL OUTSIDE OF THE [place] IN LAST 30 DAYS: No - Related Data Allergies/Adverse Reactions: No Known Allergies Allergy (Verified 03/18/20 14:34) Past Medical History - Social History Frequency of alcohol use: None Drug Abuse: None - Past Medical History Cardiac Medical History: Reports: Hx Hypertension Denies: Hx Coronary Artery Disease, Hx Heart Attack Pulmonary Medical History: Reports: Hx Pneumonia - 2 YRS AGO Denies: Hx Asthma, Hx Bronchitis, Hx COPD Neurological Medical History: Denies: Hx Cerebrovascular Accident, Hx Seizures Renal/ Medical History: Reports: Hx Kidney Stones. Denies: Hx Peritoneal Dialysis GI Medical History: Reports: Hx Diverticulitis Musculoskeltal Medical History: Denies Hx Arthritis Past Surgical History: Reports: Hx Section - Immunizations Hx Diphtheria, Pertussis, Tetanus Vaccination: Yes Physical Exam - Vital signs Vitals: Temp Pulse Resp BP Pulse Ox 98.4 F 113 H 22 H 156/101 H 98 04/30/20 14:13 04/30/20 14:13 04/30/20 14:13 04/30/20 14:13 04/30/20 14:13 Course - Vital Signs Vital signs: Temp Pulse Resp BP Pulse Ox 98.4 F 113 H 22 H 156/101 H 98 04/30/20 14:15 04/30/20 14:13 04/30/20 14:13 04/30/20 14:13 04/30/20 14:13 Doctor's Discharge - Discharge Referrals: CHRISTIANE BRYAN MD [Primary Care Provider] - Follow up as needed
[2020-04-30 14:56] LABS: ABSOLUTE BASOPHILS # (AUTO) 0.1 10^3/uL (0.0-0.2); ABSOLUTE EOSINOPHILS # (AUTO) 0.5 10^3/uL (0.0-0.6); ABSOLUTE LYMPHOCYTES (AUTO) 1.4 10^3/uL (0.5-4.7); ABSOLUTE MONOCYTES (AUTO) 0.8 10^3/uL (0.1-1.4); ABSOLUTE NEUT (AUTO) 10.8 10^3/uL (1.7-8.2); BASOPHILS % (AUTO) 0.4 % (0-2); EOSINOPHILS % (AUTO) 3.4 % (0-6); HEMATOCRIT 42.6 % (36.0-47.0); HEMOGLOBIN 14.6 g/dL (12.0-15.5); LYMPHOCYTES % (AUTO) 10.5 % (13-45); MEAN CORPUSCULAR HEMOGLOBIN 28.9 pg (27.0-33.4); MEAN CORPUSCULAR HGB CONC 34.2 g/dL (32.0-36.0); MEAN CORPUSCULAR VOLUME 85 fl (80-97); MONOCYTES % (AUTO) 6.1 % (3-13); PLATELET COUNT 251 10^3/uL (150-450); RED BLOOD COUNT 5.04 10^6/uL (3.72-5.28); RED CELL DISTRIBUTION WIDTH 14.6 % (11.5-14.0); SEGMENTED NEUTROPHILS % (AUTO) 79.6 % (42-78); TOTAL CELLS COUNTED % (AUTO) 100 %; WHITE BLOOD COUNT 13.6 10^3/uL (4.0-10.5)
[2020-04-30 15:01] LABS: APPEARANCE,URINE CLEAR; BILIRUBIN,URINE NEGATIVE (NEGATIVE); COLOR,URINE STRAW; GLUCOSE, URINE NEGATIVE (NEGATIVE); KETONES,URINE NEGATIVE (NEGATIVE); LEUKOCYTE ESTERASE,URINE NEGATIVE (NEGATIVE); NITRITE,URINE NEGATIVE (NEGATIVE); PROTEIN,URINE NEGATIVE (NEGATIVE); URINE SPECIFIC GRAVITY 1.002; UROBILINOGEN,URINE NEGATIVE mg/dL (<2.0)
[2020-04-30 15:19] LABS: ALBUMIN 4.6 g/dL (3.5-5.0); ALKALINE PHOSPHATASE 67 U/L (38-126); ANION GAP 10 (5-19); ASPARTATE AMINO TRANSFERASE 24 U/L (14-36); BILIRUBIN,TOTAL 0.4 mg/dL (0.2-1.3); BLOOD UREA NITROGEN 6 mg/dL (7-20); CALCIUM 9.7 mg/dL (8.4-10.2); CARBON DIOXIDE 21 mmol/L (22-30); CHLORIDE 110 mmol/L (98-107); GLUCOSE 93 mg/dL (75-110); POTASSIUM 4.1 mmol/L (3.6-5.0); TOTAL PROTEIN 7.5 g/dL (6.3-8.2)
[2020-04-30] MEDS ORDERED: MORPHINE SULFATE 10 MG/ML INJ IV ONE (16:16)
[2020-04-30] MEDS ORDERED: ONDANSETRON HCL INJ/PF 4 MG/2 ML SDV IV ONE (16:16)
--- NOTE | 2020-04-30 16:26 | RADIOLOGY REPORT (SQ) ---
EXAM DESCRIPTION: CT ABD/PELVIS WITH IV ONLY IMAGES COMPLETED DATE/TIME: 04/30/2020 3:55 pm REASON FOR STUDY: diverticulitis COMPARISON: 03/20/2020, 11/02/2019, 11/13/2018, 05/01/2018 and 10/13/2017 TECHNIQUE: CT scan of the abdomen and pelvis performed using helical scanning technique with dynamic intravenous contrast injection. No oral contrast. Images reviewed with lung, soft tissue, and bone windows. Reconstructed coronal and sagittal MPR images reviewed. Delayed images for evaluation of the urinary system also acquired. All images stored on PACS. All CT scanners at this facility use dose modulation, iterative reconstruction, and/or weight based d osing when appropriate to reduce radiation dose to as low as reasonably achievable (ALARA). [facility]: Dose Right [facility]: CareDose [facility]: Dose Right [facility]: Teradose 4D [facility]: Bioaxial CONTRAST TYPE AND DOSE: 97 mL Omnipaque 350- low osmolar. RENAL FUNCTION: BUN 6; creatinine 0.5 RADIATION DOSE: CT Rad equipment meets quality standard of care and radiation dose reduction techniq ues were employed. CTDIvol: 8.5 - 12.1 mGy. DLP: 1172 mGy-cm.. LIMITATIONS: None. FINDINGS: LOWER CHEST: No significant findings. No nodules or infiltrates. LIVER: Incidental note is made of a flash filling hemangioma within the right hepatic lobe and a hypo attenuating focus within the left hepatic lobe, each of which are unchanged in the study interval. . No intrahepatic biliary dilatation. SPLEEN: Normal size. No focal lesions. PANCREAS: No masses. No significant calcifications. No adjacent inflammation or peripancreatic fluid collections. Pancreatic duct not dilated. GALLBLADDER: No identified stones by CT criteria. No inflammatory changes to suggest cholecystitis. ADRENAL GLANDS: No significant masses or asymmetry. RIGHT KIDNEY AND URETER: No solid masses. No significant calcifications. No hydronephrosis or hyd roureter. LEFT KIDNEY AND URETER: No solid masses. No significant calcifications. No hydronephrosis or hydr oureter. AORTA AND VESSELS: No aneurysm. No dissection. Renal arteries, SMA, celiac without stenosis. RETROPERITONEUM: No retroperitoneal adenopathy, hemorrhage or masses. BOWEL AND PERITONEAL CAVITY: Re- demonstration of sigmoid diverticulitis/colitis, not significantly c hanged from that seen on comparison imaging. No pneumoperitoneum. No focal fluid collection. APPENDIX: Normal. PELVIS: The bladder is largely decompressed. Inflammatory changes surround the sigmoid colon. ABDOMINAL WALL: No masses. No hernias. BONES: No significant or acute findings. OTHER: No other significant finding. IMPRESSION: Persistent appearance of sigmoid mural thickening and surrounding mesenteric fat strandi ng which has been present dating back to 05/01/2018 imaging. While this may represent a persistent in fectious/inflammatory process, consideration should be given to possible underlying neoplasm. TECHNICAL DOCUMENTATION: JOB ID: [id number] Quality ID # [id number]: Final reports with documentation of one or more dose reduction techniques (e.g., Au tomated exposure control, adjustment of the mA and/or kV according to patient size, use of iterative reconstruction technique) 2010 [employer]- All Rights Reserved Reading location - IP/workstation name: [email or web address]
--- NOTE | 2020-04-30 16:29 | ER Document Report ---
Doctor's Note Notes: 04/30/20 16:28 Patient remains significantly uncomfortable at this time crying and unable to find a position of comfort. She has an elevated leukocytosis. Awaiting the results of her CT imaging but there is concern that patient will need possible admission given the recurrent diverticulitis that has not resolved with ant ibiotic treatment and she is technically an outpatient failure. Patient unable to be given narcotic medication in the waiting room for pain have requested that patient receive a bed in the back for management of her discomfort and possible admission
[2020-04-30] MEDS ORDERED: ERTAPENEM SODIUM INJ 1 GM VIAL IV ONE (17:09)
[2020-04-30] MEDS ORDERED: DEXTROSE 5%-LACTATED RINGERS 1,000 ML IV ONE (17:22)
[2020-04-30] MEDS ORDERED: ONDANSETRON HCL INJ/PF 4 MG/2 ML SDV IV PRN (17:36)
[2020-04-30] MEDS ORDERED: LORAZEPAM INJ 2 MG/1 ML VIAL IV ONE (17:40)
[2020-04-30] MEDS ORDERED: HYDRALAZINE HCL INJ/PF 20 MG/1 ML SDV IV PRN (17:47)
--- NOTE | 2020-04-30 17:47 | ER Document Report ---
Entered by WADE FLOWERS SCRIBE 04/30/20 1713 Acting as scribe for:PAWAN BRICE MD ED GI/ - General Chief Complaint: Abdominal Pain Stated Complaint: ABDOMINAL PAIN Time Seen by Provider: 04/30/20 14:16 Mode of Arrival: Ambulatory Information source: Patient Notes: This 44 year old female that presents to the emergency department today with complaints of persistent abdominal pain. Patient has had recurring diverticulitis for the last two years. Patient was last seen for this two days ago at [facility]. She states that was told that she had a thickened colon wall from a CT that day but there was no perforation, she was sent home on Cipro and Flagyl. Patient states that she last had a colonoscopy a few years ago. Patient requesting that she be given a non-narcotic to treat her pain, stating that narcotics make her diveriticulitis worse. TRAVEL OUTSIDE OF THE [place] IN LAST 30 DAYS: No - Related Data Allergies/Adverse Reactions: No Known Allergies Allergy (Verified 04/30/20 16:42) Past Medical History - General Information source: Patient - Social History Smoking Status: Current Every Day Smoker Cigarette use (# per day): Yes Frequency of alcohol use: None Drug Abuse: None Family History: Reviewed & Not Pertinent, Hypertension, Other Patient has homicidal ideation: No - Past Medical History Cardiac Medical History: Reports: Hx Hypertension Pulmonary Medical History: Reports: Hx Pneumonia - 2 YRS AGO Renal/ Medical History: Reports: Hx Kidney Stones GI Medical History: Reports: Hx Diverticulitis Past Surgical History: Reports: Hx Section - Immunizations Hx Diphtheria, Pertussis, Tetanus Vaccination: Yes Review of Systems - Review of Systems Constitutional: No symptoms reported EENT: No symptoms reported Cardiovascular: No symptoms reported Respiratory: No symptoms reported Gastrointestinal: See HPI, Abdominal pain Genitourinary: No symptoms reported Female Genitourinary: No symptoms reported Musculoskeletal: No symptoms reported Skin: No symptoms reported Hematologic/Lymphatic: No symptoms reported Neurological/Psychological: No symptoms reported -: Yes All other systems reviewed and negative Physical Exam - Vital signs Vitals: Temp Pulse Resp BP Pulse Ox 98.4 F 113 H 22 H 156/101 H 98 04/30/20 14:13 04/30/20 14:13 04/30/20 14:13 04/30/20 14:13 04/30/20 14:13 Course - Vital Signs Vital signs: Temp Pulse Resp BP Pulse Ox 98.1 F 93 22 H 152/98 H 97 04/30/20 18:40 04/30/20 18:40 04/30/20 18:40 04/30/20 18:40 04/30/20 18:40 - Laboratory Result Diagrams: 04/30/20 14:35 04/30/20 14:35 Laboratory results interpreted by me: 04/30/20 04/30/20 04/30/20 14:35 14:35 14:35 WBC 13.6 H RDW 14.6 H Lymph % (Auto) 10.5 L Absolute Neuts (auto) 10.8 H Seg Neutrophils % 79.6 H Chloride 110 H Carbon Dioxide 21 L BUN 6 L Creatinine 0.50 L Urine Blood SMALL H - Diagnostic Test Radiology reviewed: Image reviewed, Reports reviewed - Review of CT scans including one on 03/20/2020 and another on 04/05/2020 shows this is a recurring sigmoid diverticulitis. - Consults Dr. Wiley Time consulted: 15:13 Consulted provider: will come to ER Discharge - Discharge Clinical Impression: Sigmoid diverticulitis, LLQ abdominal pain, Tachycardia Leukocytosis Qualifiers: Leukocytosis type: unspecified Qualified Code(s): D72.829 - Elevated white blood cell count, unspecified Condition: Stable Disposition: ADMITTED INPATIENT Admitting Provider: Inez (Hospitalist) Unit Admitted: Surgical Floor I personally performed the services described in the documentation, reviewed and edited the documentation which was dictated to the scribe in my presence, and it accurately records my words and actions.
--- NOTE | 2020-04-30 17:49 | PDOC H&P ---
History of Present Illness Admission Date/PCP: ELIJAH GONZALES DO Patient complains of: Came to the emergency room with complaints of severe abdominal pain History of Present Illness: RASHMI HODGE I is a 44 year old female came to the emergency room with compla ints of severe abdominal pain, pain scale is 10/10. She was admitted last month with similar problems. Few days ago she went to ER in [place] with a similar problem given Flagyl and Cipro and was discharged. She follows with Dr. Du as an outpatient. sHe agreed to stay in the hospital for further management. And received Invanz in the emergency room. WBC count is slightly elevated around 13,600. Afebrile. Past Medical History Cardiac Medical History: Reports: Hypertension Denies: Coronary Artery Disease, Myocardial Infarction Pulmonary Medical History: Reports: Pneumonia - 2 YRS AGO Denies: Asthma, Bronchitis, Chronic Obstructive Pulmonary Disease (COPD) Neurological Medical History: Denies: Seizures GI Medical History: Reports: Diverticulitis Musculoskeltal Medical History: Denies: Arthritis Hematology: Denies: Anemia Past Surgical History Past Surgical History: Reports: Section Social History Smoking Status: Current Every Day Smoker Frequency of Alcohol Use: None Hx Recreational Drug Use: No Drugs: None Hx Prescription Drug Abuse: No - Advance Directive Resuscitation Status: Full Code Family History Family History: Hypertension, Other Parental Family History Reviewed: Yes - Family history of hypertension. Children Family History Reviewed: Yes Sibling(s) Family History Reviewed.: Yes Medication/Allergy Home Medications: Alprazolam [Xanax] 1 mg PO Q8HP PRN 03/20/20 Hydrochlorothiazide [Hydrodiuril 25 mg Tablet] 25 mg PO QAM 03/20/20 Lisinopril [Zestril] 40 mg PO DAILY 03/20/20 Metronidazole [Flagyl 500 mg Tablet] 500 mg PO Q8 MDD filled 04/29 for 10 day supply 03/20/20 Ciprofloxacin HCl [Cipro 750 mg Tablet] 750 mg PO BID MDD filled 04/29 for 10 day supply 04/30/20 Ketorolac Tromethamine [Toradol 10 mg Tablet] 10 mg PO Q6HP PRN MDD filled 04/29 for 5 day supply 04/30/20 Allergies/Adverse Reactions: No Known Allergies Allergy (Verified 04/30/20 16:42) Review of Systems Constitutional: ABSENT: fatigue, fever(s), weakness Ears: ABSENT: hearing changes Respiratory: ABSENT: hemoptysis Gastrointestinal: PRESENT: abdominal pain. ABSENT: constipation, diarrhea, hematemesis Genitourinary: ABSENT: dysuria, hematuria Musculoskeletal: ABSENT: joint swelling Neurological: ABSENT: abnormal gait, abnormal speech, confusion, dizziness, focal weakness, syncope Psychiatric: ABSENT: anxiety, depression, homidical ideation, suicidal ideation Physical Exam Vital Signs: Temp Pulse Resp BP Pulse Ox 98.4 F 113 H 22 H 156/101 H 98 04/30/20 14:15 04/30/20 14:13 04/30/20 14:13 04/30/20 14:13 04/30/20 14:13 Intake & Output 04/29/20 04/30/20 05/01/20 06:59 06:59 06:59 Weight 85 kg General appearance: PRESENT: well-developed, other - In moderate distress. Head exam: PRESENT: atraumatic Eye exam: PRESENT: PERRLA Mouth exam: PRESENT: moist, tongue midline Neck exam: ABSENT: carotid bruit, JVD, lymphadenopathy, thyromegaly Respiratory exam: PRESENT: clear to auscultation melvin. ABSENT: rales, rhonchi, wheezes Cardiovascular exam: PRESENT: tachycardia Pulses: PRESENT: normal dorsalis pedis pul GI/Abdominal exam: PRESENT: diminished bowel sounds, normal bowel sounds, tenderness Rectal exam: PRESENT: deferred Extremities exam: PRESENT: full ROM. ABSENT: calf tenderness, clubbing, pedal edema Neurological exam: PRESENT: alert, awake, oriented to person, oriented to place, oriented to time, oriented to situation, CN II-XII grossly intact. ABSENT: motor sensory deficit Psychiatric exam: PRESENT: appropriate affect, normal mood. ABSENT: homicidal ideation, suicidal ideation Results Laboratory Results: 04/30/20 14:35 04/30/20 14:35 04/30/20 04/30/20 04/30/20 14:35 14:35 14:35 WBC 13.6 H RBC 5.04 Hgb 14.6 Hct 42.6 MCV 85 MCH 28.9 MCHC 34.2 RDW 14.6 H Plt Count 251 Seg Neutrophils % 79.6 H Sodium 140.6 Potassium 4.1 Chloride 110 H Carbon Dioxide 21 L Anion Gap 10 BUN 6 L Creatinine 0.50 L Est GFR ( Amer) > 60 Glucose 93 Calcium 9.7 Total Bilirubin 0.4 AST 24 Alkaline Phosphatase 67 Total Protein 7.5 Albumin 4.6 Lipase 150.6 Urine Color STRAW Urine Appearance CLEAR Urine pH 6.0 Ur Specific [place] 1.002 Urine Protein NEGATIVE Urine Glucose (UA) NEGATIVE Urine Ketones NEGATIVE Urine Blood SMALL H Urine Nitrite NEGATIVE Ur Leukocyte Esterase NEGATIVE Urine WBC (Auto) 0 Urine RBC (Auto) 0 Impressions: Abdomen/Pelvis CT 04/30/20 14:23 IMPRESSION: Persistent appearance of sigmoid mural thickening and surrounding mesenteric fat stranding which has been present dating back to 05/01/2018 imaging. While this may represent a persistent infectious/inflammatory process, consideration should be given to possible underlying neoplasm. Assessment and Plan - Diagnosis (1) Diverticulitis Is this a current diagnosis for this admission?: Yes Plan: 04/30/2020-patient is going to be admitted to medical floor as an inpatient for a recurrent sigmoid diverticulitis. Patient will be n.p.o., on IV fluids, and IV morphine, IV Ativan for anxiety. GI prophylaxis initiated. Blood cultures urine cultures requested. To continue Invanz at this time. Surgical consult will be requested with the [facility] tomorrow. (2) HTN (hypertension) Is this a current diagnosis for this admission?: No Plan: 04/30/2020-blood pressure is 156/101. Patient has a history of chronic essential hypertension to start her on IV hydralazine 10 mg every 6 hours as needed for systolic blood pressure more than 170. (3) Tobacco abuse Is this a current diagnosis for this admission?: No Plan: 04/30/2020-patient has history of chronic smoking smokes close to 1 pack/day. Smoking counseling is provided to place her on nicotine patch 21 mcg daily.
[2020-04-30] MEDS ORDERED: NICOTINE 21 MG/24 HR PATCH.TD24 TD ONE (18:15)
[2020-04-30] MEDS: NORMAL SALINE 1000 ML 1,000 ML IV PRN (19:34)
[2020-04-30] MEDS: KETOROLAC TROMETHAMINE INJ/PF 30 MG/1 ML SDV IV PRN (20:51)
[2020-04-30 21:10] LABS: URINE AMPHETAMINES SCREEN NEGATIVE; URINE BARBITURATES SCREEN NEGATIVE; URINE BENZODIAZEPINES SCREEN NEGATIVE; URINE COCAINE SCREEN NEGATIVE; URINE METHADONE SCREEN NEGATIVE; URINE PHENCYCLIDINE SCREEN NEGATIVE
[2020-04-30 21:13] LABS: URINE MARIJUANA (THC) SCREEN UNCONFIRMED POSITIVE
[2020-04-30] MEDS ORDERED: ERTAPENEM SODIUM INJ 1 GM VIAL IV SCH (22:00)
[2020-04-30] MEDS: HEPARIN SOD (PORCINE) 5,000 UNIT/ML 1 ML VIAL SUBCUT SCH (23:03)
[2020-05-01] MEDS: LORAZEPAM INJ 2 MG/1 ML VIAL IV PRN ×3 (01:01→20:32)
[2020-05-01] MEDS: ACETAMINOPHEN 325 MG TABLET PO PRN ×3 (01:01→20:33)
[2020-05-01] MEDS: HEPARIN SOD (PORCINE) 5,000 UNIT/ML 1 ML VIAL SUBCUT SCH ×3 (05:30→21:43)
[2020-05-01] MEDS: NORMAL SALINE 1000 ML 1,000 ML IV PRN ×3 (05:34→18:02)
[2020-05-01] MEDS: KETOROLAC TROMETHAMINE INJ/PF 30 MG/1 ML SDV IV PRN ×3 (05:34→20:32)
[2020-05-01 05:46] LABS: ABSOLUTE EOSINOPHILS # (AUTO) 0.2 10^3/uL (0.0-0.6); ABSOLUTE LYMPHOCYTES (AUTO) 1.6 10^3/uL (0.5-4.7); ABSOLUTE MONOCYTES (AUTO) 1.2 10^3/uL (0.1-1.4); ABSOLUTE NEUT (AUTO) 10.6 10^3/uL (1.7-8.2); BASOPHILS % (AUTO) 0.3 % (0-2); EOSINOPHILS % (AUTO) 1.1 % (0-6); HEMATOCRIT 38.6 % (36.0-47.0); HEMOGLOBIN 13.3 g/dL (12.0-15.5); LYMPHOCYTES % (AUTO) 11.6 % (13-45); MEAN CORPUSCULAR HEMOGLOBIN 29.1 pg (27.0-33.4); MEAN CORPUSCULAR HGB CONC 34.5 g/dL (32.0-36.0); MEAN CORPUSCULAR VOLUME 84 fl (80-97); MONOCYTES % (AUTO) 8.7 % (3-13); PLATELET COUNT 206 10^3/uL (150-450); RED BLOOD COUNT 4.57 10^6/uL (3.72-5.28); RED CELL DISTRIBUTION WIDTH 14.3 % (11.5-14.0); SEGMENTED NEUTROPHILS % (AUTO) 78.3 % (42-78); TOTAL CELLS COUNTED % (AUTO) 100 %; WHITE BLOOD COUNT 13.6 10^3/uL (4.0-10.5)
[2020-05-01 06:04] LABS: ALBUMIN 3.5 g/dL (3.5-5.0); ALKALINE PHOSPHATASE 43 U/L (38-126); ANION GAP 6 (5-19); ASPARTATE AMINO TRANSFERASE 16 U/L (14-36); BILIRUBIN,TOTAL 0.6 mg/dL (0.2-1.3); BLOOD UREA NITROGEN 5 mg/dL (7-20); CALCIUM 8.8 mg/dL (8.4-10.2); CARBON DIOXIDE 21 mmol/L (22-30); CHLORIDE 109 mmol/L (98-107); GLUCOSE 100 mg/dL (75-110); POTASSIUM 3.7 mmol/L (3.6-5.0); TOTAL PROTEIN 6.2 g/dL (6.3-8.2); TRIGLYCERIDES 91 mg/dL (<150)
[2020-05-01 06:16] LABS: DIRECT LDL 70 mg/dL (<100)
[2020-05-01] MEDS: PANTOPRAZOLE SODIUM 40 MG VIAL IV SCH (09:48)
[2020-05-01] MEDS: ERTAPENEM SODIUM 1 GM in NORMAL SALINE 50 ML IV SCH (09:49)
[2020-05-01] MEDS ORDERED: ERTAPENEM SODIUM INJ 1 GM VIAL IV SCH (10:00)
--- NOTE | 2020-05-01 11:59 | PDOC PROGRESS REPORT ---
Subjective Progress Note for:: 05/01/20 Subjective:: 44 year old female came to the emergency room with complaints of severe abdominal pain, pain scale is 10/10. She was admitted last month with similar problems. Few days ago she went to ER in [place] with a similar problem given Flagyl and Cipro and was discharged. She follows with Dr. Du as an outpatient. sHe agreed to stay in the hospital for further management. And received Invanz in the emergency room. WBC count is slightly elevated around 13,600. Afebrile. 05/01/[id number]-ynwd-old female admitted with recurrent diverticulitis. WBC is 13,600 T-max is 98.[address] Du discussed the plan with me he is going to see the patient tomorrow for further evaluation and management. Patient is complaining of pain plan to place her on IV morphine 2 mg every 4 hours as needed. She is also complaining of feeling dehydrated and urine is dark-colored. Presently receiving IV fluids at 125 cc/h plan is to increase the fluids to 200 cc/h. Reason For Visit: SIGMOID DIVERTICULITIS Physical Exam Vital Signs: Temp Pulse Resp BP Pulse Ox 99.0 F 116 H 16 132/76 H 98 04/30/20 23:24 04/30/20 23:24 04/30/20 23:24 04/30/20 23:24 04/30/20 23:24 Intake & Output 04/30/20 05/01/20 05/02/20 06:59 06:59 06:59 Intake Total 1000 Output Total 1100 Balance -100 Weight 87.5 kg General appearance: PRESENT: no acute distress Head exam: PRESENT: atraumatic Eye exam: PRESENT: PERRLA Neck exam: ABSENT: carotid bruit, JVD, lymphadenopathy, thyromegaly Respiratory exam: PRESENT: clear to auscultation melvin. ABSENT: rales, rhonchi, wheezes Cardiovascular exam: PRESENT: RRR. ABSENT: diastolic murmur, rubs, systolic murmur Pulses: PRESENT: normal dorsalis pedis pul GI/Abdominal exam: PRESENT: normal bowel sounds, soft, tenderness. ABSENT: distended, guarding, mass, organolmegaly, rebound Rectal exam: PRESENT: deferred Extremities exam: PRESENT: full ROM. ABSENT: calf tenderness, clubbing, pedal edema Neurological exam: PRESENT: alert, awake, oriented to person, oriented to place, oriented to time, oriented to situation, CN II-XII grossly intact. ABSENT: motor sensory deficit Psychiatric exam: PRESENT: appropriate affect, normal mood. ABSENT: homicidal ideation, suicidal ideation Results Laboratory Results: 05/01/20 05:29 05/01/20 05:29 04/30/20 04/30/20 04/30/20 14:35 14:35 14:35 WBC 13.6 H RBC 5.04 Hgb 14.6 Hct 42.6 MCV 85 MCH 28.9 MCHC 34.2 RDW 14.6 H Plt Count 251 Seg Neutrophils % 79.6 H Sodium 140.6 Potassium 4.1 Chloride 110 H Carbon Dioxide 21 L Anion Gap 10 BUN 6 L Creatinine 0.50 L Est GFR ( Amer) > 60 Glucose 93 Calcium 9.7 Magnesium Total Bilirubin 0.4 AST 24 Alkaline Phosphatase 67 Total Protein 7.5 Albumin 4.6 Triglycerides Cholesterol LDL Cholesterol Direct VLDL Cholesterol HDL Cholesterol Lipase 150.6 TSH Urine Color STRAW Urine Appearance CLEAR Urine pH 6.0 Ur Specific [place] 1.002 Urine Protein NEGATIVE Urine Glucose (UA) NEGATIVE Urine Ketones NEGATIVE Urine Blood SMALL H Urine Nitrite NEGATIVE Ur Leukocyte Esterase NEGATIVE Urine WBC (Auto) 0 Urine RBC (Auto) 0 05/01/20 05/01/20 05/01/20 05:29 05:29 05:29 WBC 13.6 H RBC 4.57 Hgb 13.3 Hct 38.6 MCV 84 MCH 29.1 MCHC 34.5 RDW 14.3 H Plt Count 206 Seg Neutrophils % 78.3 H Sodium 135.9 L Potassium 3.7 Chloride 109 H Carbon Dioxide 21 L Anion Gap 6 BUN 5 L Creatinine 0.47 L Est GFR ( Amer) > 60 Glucose 100 Calcium 8.8 Magnesium 1.9 Total Bilirubin 0.6 AST 16 Alkaline Phosphatase 43 Total Protein 6.2 L Albumin 3.5 Triglycerides 91 Cholesterol 109.30 LDL Cholesterol Direct 70 VLDL Cholesterol 18.0 HDL Cholesterol 25 L Lipase TSH 0.26 L Urine Color Urine Appearance Urine pH Ur Specific [place] Urine Protein Urine Glucose (UA) Urine Ketones Urine Blood Urine Nitrite Ur Leukocyte Esterase Urine WBC (Auto) Urine RBC (Auto) 05/01/20 05:29 CK-MB (CK-2) < 0.22 Impressions: Abdomen/Pelvis CT 04/30/20 14:23 IMPRESSION: Persistent appearance of sigmoid mural thickening and surrounding mesenteric fat stranding which has been present dating back to 05/01/2018 imaging. While this may represent a persistent infectious/inflammatory process, consideration should be given to possible underlying neoplasm. Assessment and Plan - Diagnosis (1) Diverticulitis Is this a current diagnosis for this admission?: Yes Plan: 04/30/2020-patient is going to be admitted to medical floor as an inpatient for a recurrent sigmoid diverticulitis. Patient will be n.p.o., on IV fluids, and IV morphine, IV Ativan for anxiety. GI prophylaxis initiated. Blood cultures urine cultures requested. To continue Invanz at this time. Surgical consult will be requested with the [facility] tomorrow. 05/01/2020-patient admitted with recurrent diverticulitis presently n.p.o., discussed the plan with the [facility] and he is going to see the patient tomorrow. plan is to continue IV Invanz. Blood cultures are pending. (2) HTN (hypertension) Is this a current diagnosis for this admission?: No Plan: 04/30/2020-blood pressure is 156/101. Patient has a history of chronic essential hypertension to start her on IV hydralazine 10 mg every 6 hours as needed for systolic blood pressure more than 170. 05/01/2020-latest blood pressure is 118/70. Presently on IV fluids normal saline at 125 cc/h plan is to increase the fluids to 200 cc/h as per patient request. (3) Tobacco abuse Is this a current diagnosis for this admission?: No Plan: 04/30/2020-patient has history of chronic smoking smokes close to 1 pack/day. Smoking counseling is provided to place her on nicotine patch 21 mcg daily.
[2020-05-01] MEDS: NICOTINE 21 MG/24 HR PATCH.TD24 TD SCH (13:38)
[2020-05-01] MEDS: MORPHINE SULFATE 10 MG/ML INJ IV PRN ×3 (13:38→22:38)
[2020-05-02] MEDS: NORMAL SALINE 1000 ML 1,000 ML IV PRN ×3 (01:00→22:35)
[2020-05-02] MEDS: MORPHINE SULFATE 10 MG/ML INJ IV PRN ×2 (04:20→19:04)
[2020-05-02] MEDS: LORAZEPAM INJ 2 MG/1 ML VIAL IV PRN ×3 (04:20→19:04)
[2020-05-02] MEDS: HEPARIN SOD (PORCINE) 5,000 UNIT/ML 1 ML VIAL SUBCUT SCH ×3 (05:44→21:02)
[2020-05-02 06:11] LABS: ABSOLUTE EOSINOPHILS # (AUTO) 0.2 10^3/uL (0.0-0.6); ABSOLUTE LYMPHOCYTES (AUTO) 1.6 10^3/uL (0.5-4.7); ABSOLUTE MONOCYTES (AUTO) 0.8 10^3/uL (0.1-1.4); ABSOLUTE NEUT (AUTO) 5.4 10^3/uL (1.7-8.2); BASOPHILS % (AUTO) 0.2 % (0-2); EOSINOPHILS % (AUTO) 2.3 % (0-6); HEMATOCRIT 35.3 % (36.0-47.0); HEMOGLOBIN 11.9 g/dL (12.0-15.5); LYMPHOCYTES % (AUTO) 19.6 % (13-45); MEAN CORPUSCULAR HEMOGLOBIN 28.8 pg (27.0-33.4); MEAN CORPUSCULAR HGB CONC 33.7 g/dL (32.0-36.0); MEAN CORPUSCULAR VOLUME 86 fl (80-97); MONOCYTES % (AUTO) 10.2 % (3-13); PLATELET COUNT 189 10^3/uL (150-450); RED BLOOD COUNT 4.13 10^6/uL (3.72-5.28); RED CELL DISTRIBUTION WIDTH 14.7 % (11.5-14.0); SEGMENTED NEUTROPHILS % (AUTO) 67.7 % (42-78); TOTAL CELLS COUNTED % (AUTO) 100 %; WHITE BLOOD COUNT 7.9 10^3/uL (4.0-10.5)
[2020-05-02 06:27] LABS: ALBUMIN 2.9 g/dL (3.5-5.0); ALKALINE PHOSPHATASE 44 U/L (38-126); ANION GAP 6 (5-19); ASPARTATE AMINO TRANSFERASE 12 U/L (14-36); BILIRUBIN,TOTAL 0.4 mg/dL (0.2-1.3); BLOOD UREA NITROGEN 5 mg/dL (7-20); CALCIUM 8.3 mg/dL (8.4-10.2); CARBON DIOXIDE 21 mmol/L (22-30); CHLORIDE 111 mmol/L (98-107); GLUCOSE 78 mg/dL (75-110); POTASSIUM 3.4 mmol/L (3.6-5.0); TOTAL PROTEIN 5.4 g/dL (6.3-8.2)
[2020-05-02] MEDS ORDERED: ONDANSETRON HCL INJ/PF 4 MG/2 ML SDV IV PRN (08:00)
--- NOTE | 2020-05-02 08:07 | PDOC PROGRESS REPORT ---
Subjective Progress Note for:: 05/02/20 Subjective:: pt still in pain., passing stool and flatus Reason For Visit: SIGMOID DIVERTICULITIS Physical Exam Vital Signs: Temp Pulse Resp BP Pulse Ox 98.7 F 86 18 124/81 100 05/02/20 01:22 05/02/20 01:22 05/02/20 01:22 05/02/20 01:22 05/02/20 01:22 Intake & Output 05/01/20 05/02/20 05/03/20 06:59 06:59 06:59 Intake Total 1000 4050 Output Total 1100 1450 Balance -100 2600 Weight 87.5 kg 87.3 kg General appearance: PRESENT: mild distress Head exam: PRESENT: normocephalic Eye exam: PRESENT: EOMI Ear exam: PRESENT: normal external ear exam Mouth exam: PRESENT: moist Neck exam: PRESENT: full ROM Respiratory exam: PRESENT: clear to auscultation melvin Cardiovascular exam: PRESENT: RRR Pulses: PRESENT: +2 pedal pulses bilateral Breast: PRESENT: Normal GI/Abdominal exam: PRESENT: guarding, tenderness - llq and suprapubic Rectal exam: PRESENT: deferred Extremities exam: PRESENT: full ROM Neurological exam: PRESENT: alert, awake, oriented to person, oriented to place Psychiatric exam: PRESENT: agitated Skin exam: PRESENT: dry Results Laboratory Results: 05/02/20 05:56 05/02/20 05:56 05/02/20 05/02/20 05:56 05:56 WBC 7.9 RBC 4.13 Hgb 11.9 L Hct 35.3 L MCV 86 MCH 28.8 MCHC 33.7 RDW 14.7 H Plt Count 189 Seg Neutrophils % 67.7 Sodium 137.9 Potassium 3.4 L Chloride 111 H Carbon Dioxide 21 L Anion Gap 6 BUN 5 L Creatinine 0.45 L Est GFR ( Amer) > 60 Glucose 78 Calcium 8.3 L Magnesium 2.0 Total Bilirubin 0.4 AST 12 L Alkaline Phosphatase 44 Total Protein 5.4 L Albumin 2.9 L 05/01/20 05:29 CK-MB (CK-2) < 0.22 Impressions: Abdomen/Pelvis CT 04/30/20 14:23 IMPRESSION: Persistent appearance of sigmoid mural thickening and surrounding mesenteric fat stranding which has been present dating back to 05/01/2018 imaging. While this may represent a persistent infectious/inflammatory process, consideration should be given to possible underlying neoplasm. Assessment & Plan - Plan Summary Plan Summary: pt with recurrent diverticulitis 3rd episode this yr now iwth significant pain pt not willing to try another course of abx despite improvement on ct wbc wnl plan pt request surgical intervenion during this hospitilization disucussed sigmoid colostomy with temporary colostomy discussed risks of s;urgery including bleeding, infection injury to adjacent organs including ureters possible pt agrees to proceed.
[2020-05-02 08:40] LABS: INTERNATIONAL RATION (INR) 1.28
[2020-05-02] MEDS: ERTAPENEM SODIUM 1 GM in NORMAL SALINE 50 ML IV SCH (10:23)
[2020-05-02] MEDS: POTASSIUM CHLORIDE 20 MEQ PACKET PO SCH (10:27)
[2020-05-02] MEDS: PANTOPRAZOLE SODIUM 40 MG VIAL IV SCH (10:27)
[2020-05-02] MEDS: NICOTINE 21 MG/24 HR PATCH.TD24 TD SCH (10:27)
--- NOTE | 2020-05-02 10:44 | PDOC PROGRESS REPORT ---
Subjective Progress Note for:: 05/02/20 Subjective:: 44 year old female came to the emergency room with complaints of severe abdominal pain, pain scale is 10/10. She was admitted last month with similar problems. Few days ago she went to ER in [place] with a similar problem given Flagyl and Cipro and was discharged. She follows with Dr. Du as an outpatient. sHe agreed to stay in the hospital for further management. And received Invanz in the emergency room. WBC count is slightly elevated around 13,600. Afebrile. 05/[id number]-vehh-old female admitted with recurrent diverticulitis. WBC is 13,600 T-max is 98.[address] Du discussed the plan with me he is going to see the patient tomorrow for further evaluation and management. Patient is complaining of pain plan to place her on IV morphine 2 mg every 4 hours as needed. She is also complaining of feeling dehydrated and urine is dark-colored. Presently receiving IV fluids at 125 cc/h plan is to increase the fluids to 200 cc/h. 05/02/2071-96-fmjc-old female admitted with severe abdominal pain found to have a sigmoid diverticulitis patient is going for possible sigmoid colectomy with a temporary colostomy as per Dr. Du. Blood cultures are positive for Staphylococcus possibly coagulase-negative. Presently on IV Ancef. Reason For Visit: SIGMOID DIVERTICULITIS Physical Exam Vital Signs: Temp Pulse Resp BP Pulse Ox 98.7 F 86 18 124/81 100 05/02/20 01:22 05/02/20 01:22 05/02/20 01:22 05/02/20 01:22 05/02/20 01:22 Intake & Output 05/01/20 05/02/20 05/03/20 06:59 06:59 06:59 Intake Total 1000 4050 Output Total 1100 1450 Balance -100 2600 Weight 87.5 kg 87.3 kg General appearance: PRESENT: no acute distress, well-developed Head exam: PRESENT: atraumatic Eye exam: PRESENT: PERRLA Mouth exam: PRESENT: moist, tongue midline Teeth exam: PRESENT: poor dentation Neck exam: ABSENT: carotid bruit, JVD, lymphadenopathy, thyromegaly Respiratory exam: PRESENT: decreased breath sounds Cardiovascular exam: PRESENT: RRR. ABSENT: diastolic murmur, rubs, systolic murmur Pulses: PRESENT: normal dorsalis pedis pul GI/Abdominal exam: PRESENT: normal bowel sounds, soft. ABSENT: distended, guarding, mass, organolmegaly, rebound, tenderness Rectal exam: PRESENT: deferred Extremities exam: PRESENT: full ROM. ABSENT: calf tenderness, clubbing, pedal edema Neurological exam: PRESENT: alert, awake, oriented to person, oriented to place, oriented to time, oriented to situation, CN II-XII grossly intact. ABSENT: motor sensory deficit Psychiatric exam: PRESENT: appropriate affect, normal mood. ABSENT: homicidal ideation, suicidal ideation Results Laboratory Results: 05/02/20 05:56 05/02/20 05:56 05/02/20 05/02/20 05:56 05:56 WBC 7.9 RBC 4.13 Hgb 11.9 L Hct 35.3 L MCV 86 MCH 28.8 MCHC 33.7 RDW 14.7 H Plt Count 189 Seg Neutrophils % 67.7 Sodium 137.9 Potassium 3.4 L Chloride 111 H Carbon Dioxide 21 L Anion Gap 6 BUN 5 L Creatinine 0.45 L Est GFR ( Amer) > 60 Glucose 78 Calcium 8.3 L Magnesium 2.0 Total Bilirubin 0.4 AST 12 L Alkaline Phosphatase 44 Total Protein 5.4 L Albumin 2.9 L 04/30/20 18:00 Blood Blood Culture (PCR) - Final Staphylococcus Species 05/01/20 05:29 CK-MB (CK-2) < 0.22 Impressions: Abdomen/Pelvis CT 04/30/20 14:23 IMPRESSION: Persistent appearance of sigmoid mural thickening and surrounding mesenteric fat stranding which has been present dating back to 05/01/2018 imaging. While this may represent a persistent infectious/inflammatory process, consideration should be given to possible underlying neoplasm. Assessment and Plan - Diagnosis (1) Diverticulitis Is this a current diagnosis for this admission?: Yes Plan: 04/30/2020-patient is going to be admitted to medical floor as an inpatient for a recurrent sigmoid diverticulitis. Patient will be n.p.o., on IV fluids, and IV morphine, IV Ativan for anxiety. GI prophylaxis initiated. Blood cultures urine cultures requested. To continue Invanz at this time. Surgical consult will be requested with the [facility] tomorrow. 05/01/2020-patient admitted with recurrent diverticulitis presently n.p.o., discussed the plan with the Ana Laura Du and he is going to see the patient tomorrow. plan is to continue IV Invanz. Blood cultures are pending. 05/02/2020-male admitted with sigmoid diverticulitis cysts he has this recurrent problem Dr. Du is going plan to do the surgery tomorrow. (2) HTN (hypertension) Is this a current diagnosis for this admission?: No Plan: 04/30/2020-blood pressure is 156/101. Patient has a history of chronic essential hypertension to start her on IV hydralazine 10 mg every 6 hours as needed for systolic blood pressure more than 170. 05/01/2020-latest blood pressure is 118/70. Presently on IV fluids normal saline at 125 cc/h plan is to increase the fluids to 200 cc/h as per patient request. 05/02/2020-blood pressure today is 127/64. Stable. (3) Tobacco abuse Is this a current diagnosis for this admission?: No Plan: 04/30/2020-patient has history of chronic smoking smokes close to 1 pack/day. Smoking counseling is provided to place her on nicotine patch 21 mcg daily.
[2020-05-02] MEDS: KETOROLAC TROMETHAMINE INJ/PF 30 MG/1 ML SDV IV PRN ×2 (10:48→22:30)
[2020-05-02] MEDS ORDERED: PEG 3350/NA SULF,BICARB,CL/KCL 4000 ML PO ONE (11:00)
[2020-05-02] MEDS: ACETAMINOPHEN 325 MG TABLET PO PRN (22:30)
[2020-05-03] MEDS: HEPARIN SOD (PORCINE) 5,000 UNIT/ML 1 ML VIAL SUBCUT SCH ×3 (05:15→21:12)
[2020-05-03] MEDS: NORMAL SALINE 1000 ML 1,000 ML IV PRN ×2 (05:17→08:13)
[2020-05-03] MEDS: LORAZEPAM INJ 2 MG/1 ML VIAL IV PRN ×2 (05:18→22:37)
[2020-05-03] MEDS: MORPHINE SULFATE 10 MG/ML INJ IV PRN ×3 (05:18→22:37)
[2020-05-03] MEDS ORDERED: PROPOFOL INJ 200 MG/20 ML VIAL IV ONE (08:50)
[2020-05-03] MEDS ORDERED: MIDAZOLAM 2 MG/2 ML INJ ONE (08:50)
[2020-05-03] MEDS ORDERED: HYDROMORPHONE HCL INJ/PF 2 MG/ML AMPULE ONE (08:50)
[2020-05-03] MEDS ORDERED: FENTANYL CITRATE INJ/PF 100 MCG/2 ML AMPUL IV PRN ×3 (11:22)
[2020-05-03] MEDS ORDERED: PROMETHAZINE HCL INJ 25 MG/1 ML VIAL IV PRN ×2 (11:22)
[2020-05-03] MEDS ORDERED: OXYCODONE-ACETAMINOPHEN 5-325 MG TABLET PO PRN ×2 (11:22)
[2020-05-03] MEDS ORDERED: MEPERIDINE HCL/PF INJ 25 MG/1 ML DISP.SYRIN IV PRN (11:22)
[2020-05-03] MEDS ORDERED: MORPHINE SULFATE 10 MG/ML INJ IV PRN (11:22)
[2020-05-03] MEDS ORDERED: DIPHENHYDRAMINE HCL 50 MG/ML VIAL IV PRN (11:22)
[2020-05-03] MEDS: ERTAPENEM SODIUM 1 GM in NORMAL SALINE 50 ML IV SCH (11:22)
--- NOTE | 2020-05-03 12:08 | PDOC DISCHARGE SUMMARY ---
Impression - Admit/DC Date/PCP Admission Date/Primary Care Provider: 04/30/20 17:41 ELIJAH GONZALES, Discharge Date: 05/03/20 - Discharge Diagnosis (1) Diverticulitis Is this a current diagnosis for this admission?: Yes (2) HTN (hypertension) Is this a current diagnosis for this admission?: No (3) Tobacco abuse Is this a current diagnosis for this admission?: No - Assessment Summary: (1) Diarrhea Qualifiers: Diarrhea type: presumed infectious Qualified Code(s): R19.7 - Diarrhea, unspecified Is this a current diagnosis for this admission?: Yes Plan: 04/28/2020 Being on antibiotics 2 weeks ago (Keflex for UTI) there is a high probability that the patient has C. difficile colitis. This would certainly explain the watery diarrhea. C. difficile testing is pending. We will need to balance his fluid intake to compensate for a fluid bolus. Along with that we will need to correct electrolyte abnormalities. C. difficile testing should be back shortly. If there is positive, as I anticipate, will start oral vancomycin therapy. We will also put the patient on contact precautions. 04/29/2020 C. difficile confirmed 04/30/20-patient admitted with C. difficile diarrhea and contact solution, has 1 loose stool this morning. Receiving p.o. vancomycin at this time. Plan is to continue the present management. 05/01/20-C. difficile positive on p.o. vancomycin. No diarrhea is reported today. 05/02/20-patient is receiving p.o. vancomycin for C. difficile. Diarrhea is improving. 05/03/2020-diarrhea is resolved. Patient is expressing desire to go home today. Prescription was given for p.o. vancomycin 125 mg every 6 hours for 5 days. Patient is advised to follow-up with PCP next week. (2) Hypokalemia Is this a current diagnosis for this admission?: Yes Plan: 04/28/2020 Secondary to the diarrhea. We will increase her potassium supplementation. Because of the diarrhea I will likely give intravenous potassium initially and continue her oral potassium. 04/29/2020 Still low. I increased the oral potassium dosing. We will likely need to decrease as her diarrhea subsides. 04/30/2020-serum potassium today is 3.7 and the hypokalemia is resolving. 05/01/2020 serum potassium today is 4.1 and the hypokalemia is resolved. 05/02/2020-hyperkalemia resolved. Latest serum potassium is 4.5. 05/03/2020-serum potassium today is 5.0. Within normal limits. (3) Hyponatremia Is this a current diagnosis for this admission?: Yes Plan: 04/28/2020 Secondary to diarrhea most likely. Will be receiving gentle IV fluids to balance fluid loss from diarrhea. May also need to fluid restrict her from an oral standpoint but I believe the saline and stopping the diarrhea will correct her sodium. 04/29/2020 Monitor balance fluid loss with IV fluids versus her sodium level. We will continue to monitor and has diarrhea frequency consider sleep restriction. 04/30/2020-patient with hypokalemia serum sodium is 128 today. Asymptomatic. Plan is to continue same management. Patient has a history of heart failure to watch for the fluid overload. Patient is on fluid restriction. 05/01/2020-serum sodium is persistently low 129. Gradually improving. Patient is placed on fluid restriction and to continue directly therapy. Hyponatremia may be secondary to diuretics. 05/02/20- serum sodium is 128. Persistent hyponatremia may be secondary to diuretic therapy. 05/03/2020-serum sodium today is 128.7. Patient has chronic hyponatremia most likely secondary to diuretics. (4) Hypoalbuminemia Is this a current diagnosis for this admission?: No Plan: 04/28/2020 The patient's albumin was only 2.8. This is down from 3.5 several weeks ago. She should never felt much protein just with diarrhea. It could be delusional however I will give her 25 g of albumin and reassess. 04/29/2020 Received albumin. Will reassess tomorrow. Likely combination of age, diet and chronic illness. 04/30/2020-serum albumin is today is 2.5. Edema of the lower extremities signif icantly improving as per the patient. (5) Edema of both lower legs Is this a current diagnosis for this admission?: Yes Plan: 04/28/2020 Leg elevation and IV albumin at this point. I will resume diuretic therapy tomorrow. Her morbid obesity is also a contributing factor. 04/29/2020 Multifactorial. Keep legs elevated for now. 04/30/2020-edema of the lower extremities significantly improved as per the patient. 05/01/2020-edema of the lower extremities 05/03/2020-lower extremity edema improving on daily basis. (6) Longstanding persistent atrial fibrillation Is this a current diagnosis for this admission?: No Plan: 04/28/2020 The patient has a pacemaker. Right now she is exhibiting a paced rhythm. Will monitor heart rate with vital signs. She does remain on anticoagulation. Will need to watch for blood in the stool if in fact there is a colitis. Even with pronounced diarrhea there could be bleeding. 04/29/2020 Continue to monitor on telemetry. Continue metoprolol vital signs with standing. 04/30/2020-heart rate is around 74 today. Well-controlled. Patient has history of persistent atrial fibrillation. Has a pacemaker. To continue metoprolol and she is on anticoagulation with aphixiban. 05/01/20-heart rate in the 80s.. to continue metoprolol and aphixban 05/02/2020-heart rate is around 62. Plan is to continue metoprolol and anticoagulation with apixaban. 05/03/2020-heart rate in the 70s in sinus rhythm. Advised to continue metoprol ol, aphixiban at home. (7) Venous stasis Is this a current diagnosis for this admission?: No Plan: 04/28/2020 Considering her morbid obesity the patient surely has venous insufficiency with stasis dermatitis. This is mistaken for cellulitis many times. She would benefit from compression therapy. We do not have full leg sequential compression in-house. We will keep legs elevated when possible. Consider compression wraps. (8) Morbid obesity Is this a current diagnosis for this admission?: No Plan: 04/28/2020 Her BMI of 52 significantly complicates several comorbidities. At this point aggressive diuresis would be the only way to manage her condition. Some of this certainly is water weight but only a small fraction. - Plan Summary Summary: 04/28/2020 Vital signs listed oxygen saturations at 67% at one-point. I believe this was monitor error. The patient is not on oxygen therapy. I do not believe the patient meets sepsis criteria either. We will need to administer IV fluids carefully. She will receive albumin to try and limit third spacing due to decreased oncotic pressure. 05/03/2020-C. difficile colitis resolving. Going home on p.o. vancomycin. Lower extremity edema significantly improved. No acute events in the last 24 hours. - Additional Information Resuscitation Status: Full Code Referrals: CHRISTIANE BRYAN MD [ACTIVE STAFF] - Follow up as needed Home Medications: Alprazolam [Xanax] 1 mg PO Q8HP PRN 03/20/20 Hydrochlorothiazide [Hydrodiuril 25 mg Tablet] 25 mg PO QAM 03/20/20 Lisinopril [Zestril] 40 mg PO DAILY 03/20/20 Metronidazole [Flagyl 500 mg Tablet] 500 mg PO Q8 MDD filled 04/29 for 10 day supply 03/20/20 Ciprofloxacin HCl [Cipro 750 mg Tablet] 750 mg PO BID MDD filled 04/29 for 10 day supply 04/30/20 Ketorolac Tromethamine [Toradol 10 mg Tablet] 10 mg PO Q6HP PRN MDD filled 04/29 for 5 day supply 04/30/20 Lactobacillus Acidophilus [Probiotic Acidophilus] 1 each PO DAILY 04/30/20 History of Present Illiness History of Present Illness: RASHMI HODGE I is a 44 year old female came to the emergency room with complaints of severe abdominal pain, pain scale is 10/10. She was admitted last month with similar problems. Few days ago she went to ER in [place] with a similar problem given Flagyl and Cipro and was discharged. She follows with Dr. Bryan as an outpatient. sHe agreed to stay in the hospital for further management. And received Invanz in the emergency room. WBC count is slightly elevated around 13,600. Afebrile. Hospital Course Hospital Course: 89 year old female who I discharged on April 15 from [facility]. At that time her primary diagnosis is anasarca with acute on chronic heart failure as well as a urinary tract infection. She was to complete 3 more days of outpatient antibiotic therapy with Keflex. Patient states that 4 days ago she began to notice diarrhea. This progressively worsened to watery diarrhea with urgency and frequency. She has a hemorrhoid so she always reports trace blood but there was no more than her baseline amount. She states that her edema is returning. She denies fever or chills. She said her appetite is been very poor but she is trying to take liquids as best she can. She has a history of atrial fibrillation, hypertension and hyperlipidemia. She is on chronic anticoagulation with Eliquis. She is morbidly obese and has gastroesophageal reflux as well as arthritis. She complains of the "cellulitis "in her right leg. I did spend a minute explained to her that it was more likely venous stasis dermatitis or thrombophlebitis and not infection. On exam she is quite talkative. Her temperature is only 99 F. Pulse and blood pressure are stable. She has already received 1 L of fluid. Her white blood cell count is slightly elevated at 14.2. She is anemic with a hemoglobin of 10.8 and a normal platelet count. She is hyponatremic with a sodium of 126.7 and hypokalemic with a potassium of 3.0. Total bilirubin is 1.8 and her serum albumin is only 2.8. A stool is being sent for C. difficile. The urine has been collected and is being sent for urinalysis with reflex to culture. Blood cultures have been detected. She has been given 1 dose of IV metronidazole. 04/30/2020-patient admitted with C. difficile diarrhea. On contact isolation. Has 1 loose bowel movement this morning. Receiving p.o. vancomycin at this time. Comfortably in the bed communicating well. Not in distress. 05/01/2020-no diarrhea is reported. Patient is C. difficile positive and on p.o. vancomycin. Refused physical therapy. Requesting to take a bath and requesting cream to apply to the lower extremities. Other than that she is doing well. Edema is improving. Pressures are stable. 05/02/2020-patient is positive for C. difficile on p.o. vancomycin diarrhea is improving. Patient is expressing desire to stay 1 more day. 05/03/20-patient is going home on p.o. vancomycin 125 mg every 6 hours for 5 days. In the last 24 hours the diarrhea is resolved. Afebrile. Patient is expressing desire to go home today with home health. Physical Exam Vital Signs: Temp Pulse Resp BP Pulse Ox 97.8 F 96 19 134/96 H 96 05/03/20 07:38 05/03/20 07:38 05/03/20 07:38 05/03/20 07:38 05/03/20 07:38 Intake & Output 05/02/20 05/03/20 05/04/20 06:59 06:59 06:59 Intake Total 4050 2050 587 Output Total 1450 100 Balance 2600 1950 587 Weight 87.3 kg 87.5 kg General appearance: PRESENT: no acute distress, morbidly obese Head exam: PRESENT: atraumatic Eye exam: PRESENT: PERRLA Mouth exam: PRESENT: moist, tongue midline Teeth exam: PRESENT: poor dentation Neck exam: ABSENT: carotid bruit, JVD, lymphadenopathy, thyromegaly Respiratory exam: PRESENT: decreased breath sounds Cardiovascular exam: PRESENT: RRR. ABSENT: diastolic murmur, rubs, systolic murmur GI/Abdominal exam: PRESENT: normal bowel sounds, soft. ABSENT: distended, guarding, mass, organolmegaly, rebound, tenderness Rectal exam: PRESENT: deferred Extremities exam: PRESENT: full ROM, +1 edema. ABSENT: calf tenderness, clubbing, pedal edema Neurological exam: PRESENT: alert, awake, oriented to person, oriented to place, oriented to time, oriented to situation, CN II-XII grossly intact. ABSENT: motor sensory deficit Psychiatric exam: PRESENT: appropriate affect, normal mood. ABSENT: homicidal ideation, suicidal ideation Results Laboratory Results: WBC 7.9 10^3/uL (4.0-10.5) 05/02/20 05:56 RBC 4.13 10^6/uL (3.72-5.28) 05/02/20 05:56 Hgb 11.9 g/dL (12.0-15.5) L 05/02/20 05:56 Hct 35.3 % (36.0-47.0) L 05/02/20 05:56 MCV 86 fl (80-97) 05/02/20 05:56 MCH 28.8 pg (27.0-33.4) 05/02/20 05:56 MCHC 33.7 g/dL (32.0-36.0) 05/02/20 05:56 RDW 14.7 % (11.5-14.0) H 05/02/20 05:56 Plt Count 189 10^3/uL (150-450) 05/02/20 05:56 Lymph % (Auto) 19.6 % (13-45) 05/02/20 05:56 [place] % (Auto) 10.2 % (3-13) 05/02/20 05:56 Eos % (Auto) 2.3 % (0-6) 05/02/20 05:56 Baso % (Auto) 0.2 % (0-2) 05/02/20 05:56 Absolute Neuts (auto) 5.4 10^3/uL (1.7-8.2) 05/02/20 05:56 Absolute Lymphs (auto) 1.6 10^3/uL (0.5-4.7) 05/02/20 05:56 Absolute Monos (auto) 0.8 10^3/uL (0.1-1.4) 05/02/20 05:56 Absolute Eos (auto) 0.2 10^3/uL (0.0-0.6) 05/02/20 05:56 Absolute Basos (auto) 0.0 10^3/uL (0.0-0.2) 05/02/20 05:56 Seg Neutrophils % 67.7 % (42-78) 05/02/20 05:56 PT 16.0 SEC (11.4-15.4) H 05/02/20 08:19 INR 1.28 05/02/20 08:19 Sodium 137.9 mmol/L (137-145) 05/02/20 05:56 Potassium 3.4 mmol/L (3.6-5.0) L 05/02/20 05:56 Chloride 111 mmol/L (98-107) H 05/02/20 05:56 Carbon Dioxide 21 mmol/L (22-30) L 05/02/20 05:56 Anion Gap 6 (5-19) 05/02/20 05:56 BUN 5 mg/dL (7-20) L 05/02/20 05:56 Creatinine 0.45 mg/dL (0.52-1.25) L 05/02/20 05:56 Est GFR ( Amer) > 60 (>60) 05/02/20 05:56 Est GFR (MDRD) Non-Af > 60 (>60) 05/02/20 05:56 Glucose 78 mg/dL (75-110) 05/02/20 05:56 Hemoglobin A1c % 5.3 % (4.7-6.0) 05/01/20 05:29 Calcium 8.3 mg/dL (8.4-10.2) L 05/02/20 05:56 Magnesium 2.0 mg/dL (1.6-2.3) 05/02/20 05:56 Total Bilirubin 0.4 mg/dL (0.2-1.3) 05/02/20 05:56 Direct Bilirubin 0.0 mg/dL (0.0-0.4) 05/02/20 05:56 Neonat Total Bilirubin Not Reportable 05/02/20 05:56 Neonat Direct Bilirubin Not Reportable 05/02/20 05:56 Neonat Indirect Bili Not Reportable 05/02/20 05:56 AST 12 U/L (14-36) L 05/02/20 05:56 ALT 11 U/L (<35) 05/02/20 05:56 Alkaline Phosphatase 44 U/L (38-126) 05/02/20 05:56 CK-MB (CK-2) < 0.22 ng/mL (<4.55) 05/01/20 05:29 Total Protein 5.4 g/dL (6.3-8.2) L 05/02/20 05:56 Albumin 2.9 g/dL (3.5-5.0) L 05/02/20 05:56 Triglycerides 91 mg/dL (<150) 05/01/20 05:29 Cholesterol 109.30 mg/dL (0-200) 05/01/20 05:29 LDL Cholesterol Direct 70 mg/dL (<100) 05/01/20 05:29 VLDL Cholesterol 18.0 mg/dL (10-31) 05/01/20 05:29 HDL Cholesterol 25 mg/dL (>40) L 05/01/20 05:29 Lipase 150.6 U/L (23-300) 04/30/20 14:35 TSH 0.26 uIU/mL (0.47-4.68) L 05/01/20 05:29 Urine Color STRAW 04/30/20 14:35 Urine Appearance CLEAR 04/30/20 14:35 Urine pH 6.0 (5.0-9.0) 04/30/20 14:35 Ur Specific [place] 1.002 04/30/20 14:35 Urine Protein NEGATIVE mg/dL (NEGATIVE) 04/30/20 14:35 Urine Glucose (UA) NEGATIVE mg/dL (NEGATIVE) 04/30/20 14:35 Urine Ketones NEGATIVE mg/dL (NEGATIVE) 04/30/20 14:35 Urine Blood SMALL (NEGATIVE) H 04/30/20 14:35 Urine Nitrite NEGATIVE (NEGATIVE) 04/30/20 14:35 Urine Bilirubin NEGATIVE (NEGATIVE) 04/30/20 14:35 Urine Urobilinogen NEGATIVE mg/dL (<2.0) 04/30/20 14:35 Ur Leukocyte Esterase NEGATIVE (NEGATIVE) 04/30/20 14:35 Urine WBC (Auto) 0 /HPF 04/30/20 14:35 Urine RBC (Auto) 0 /HPF 04/30/20 14:35 Squamous Epi Cells Auto <1 /HPF 04/30/20 14:35 Urine Ascorbic Acid NEGATIVE (NEGATIVE) 04/30/20 14:35 Urine Opiates Screen UNCONFIRMED POSITIVE 04/30/20 20:40 Urine Methadone Screen NEGATIVE 04/30/20 20:40 Ur Barbiturates Screen NEGATIVE 04/30/20 20:40 Ur Phencyclidine Scrn NEGATIVE 04/30/20 20:40 Ur Amphetamines Screen NEGATIVE 04/30/20 20:40 U Benzodiazepines Scrn NEGATIVE 04/30/20 20:40 Urine Cocaine Screen NEGATIVE 04/30/20 20:40 U Marijuana (THC) Screen UNCONFIRMED POSITIVE 04/30/20 20:40 SARS-CoV-2 (PCR) NEGATIVE (NEGATIVE) 05/02/20 14:40 05/01/20 05:29 CK-MB (CK-2) < 0.22 Impressions: Abdomen/Pelvis CT 04/30/20 14:23 IMPRESSION: Persistent appearance of sigmoid mural thickening and surrounding mesenteric fat stranding which has been present dating back to 05/01/2018 imaging. While this may represent a persistent infectious/inflammatory process, consideration should be given to possible underlying neoplasm. Plan Plan of Treatment: Patient is advised to be compliant with her medications including diuretics. She was given a prescription for p.o. vancomycin 125 mg every 6 hours for 5 days. She was also advised to follow-up with primary care physician next week. She agreed with the plan going home today. Time Spent: Greater than 30 Minutes Stroke Is this a Stroke Patient?: No Acute Heart Failure - Is this a Heart Failure Patient?: No
[2020-05-03] MEDS: MORPHINE SULFATE 10 MG/ML INJ ONE ×4 (12:35→12:50)
[2020-05-03] MEDS ORDERED: KETOROLAC TROMETHAMINE INJ/PF 30 MG/1 ML SDV ONE (12:49)
[2020-05-03] MEDS ORDERED: ACETAMINOPHEN 1,000 MG/100 ML RTUPB IV ONE ×2 (12:49→13:30)
[2020-05-03] MEDS ORDERED: DEXMEDETOMIDINE INJ 80 MCG/20 ML VIAL IV ONE (13:05)
[2020-05-03] MEDS ORDERED: KETOROLAC TROMETHAMINE INJ/PF 30 MG/1 ML SDV IV ONE (13:30)
[2020-05-03] MEDS ORDERED: HEPARIN SOD (PORCINE) 5,000 UNIT/ML 1 ML VIAL SUBCUT SCH (14:00)
[2020-05-03] MEDS ORDERED: NEOSTIGMINE METHYLSULFATE 10 MG/10 ML VIAL ONE (14:06)
[2020-05-03] MEDS ORDERED: ROCURONIUM BROMIDE INJ 50 MG/5 ML VIAL IV ONE (14:06)
[2020-05-03] MEDS ORDERED: GLYCOPYRROLATE 1 MG/5 ML VIAL ONE (14:06)
[2020-05-03] MEDS ORDERED: DEXAMETHASONE SOD PHOSPHATE INJ 4 MG/1 ML VIAL ONE (14:06)
[2020-05-03] MEDS ORDERED: ONDANSETRON HCL INJ/PF 4 MG/2 ML SDV ONE (14:06)
[2020-05-03] MEDS ORDERED: LIDOCAINE 2% INJ-PF (20 MG/ML) 2 ML AMPUL ONE (14:06)
--- NOTE | 2020-05-03 15:32 | Operative Report ---
Nonrecallable Operative Report DATE OF SURGERY: 05/03/20 PREOPERATIVE DIAGNOSIS: Diverticulitis POSTOPERATIVE DIAGNOSIS: Diverticulitis OPERATION: Sigmoid colectomy with coloproctostomy and temporary loop ileostomy SURGEON: CHRISTIANE BRYAN 1ST MECHANICAL PROJECT MANAGER: KERRIE MUÑOZ ANESTHESIA: GA TISSUE REMOVED OR ALTERED: Sigmoid colon COMPLICATIONS: None ESTIMATED BLOOD LOSS: 150 cc INTRAOPERATIVE FINDINGS: Sigmoid diverticulitis PROCEDURE: Patient was brought to the operating room awake alert stable condition placed on the operating table supine position induced under general anesthesia intubated. She was placed in low lithotomy position. After appropriate timeout and site verification her abdomen was prepped and draped in usual sterile fashion. A midline incision was used from just above the umbilicus to the pubic symphysis dissection was carried down through subtenons tissue with Bovie cautery midline fascia was entered. We placed the Bookwalter retractor for for exposure. The sigmoid colon was identified with as a mass phlegmon in the left lower quadrant posterior to the uterus with some digital dissection were able to mobilize the sigmoid colon up into the wound. The proximal rectum appeared to be spared and was soft. The mid descending colon was also spared and soft. We ended dissection by mobilizing the peritoneum along the pelvic floor up to the peritoneal reflection and identified both right and left ureter and preserve those. The left ovary was fixed to the phlegmon and this was taken down sharply with Bovie cautery. Once this was accomplished we then were able to encircle the proximal rectum at the peritoneal reflection and came across it with 1 firing of the Endo PORFIRIO stapler with a green load. We then mobilized the peritoneum with Bovie cautery and then LigaSure device all the way up dividing the inferior mesenteric artery to the mid descending colon. Again we were protecting both the right and left ureters as this progressed. We then mobilized the descending colon along the white line of Toldt with the Bovie cautery to allowed to come down into the pelvis. We then came across the mid descending colon with the pursestring maker and divided it with a 10 blade and remove the specimen. We sized the descending colon easily admitted a 29 mm anvil. We placed it into the end of the descending colon and tied down the pursestring suture. Through the rectum we then placed the 29 mm cyst stapler connected to the anvil and the descending colon closed and fired creating a coloproctostomy. We then checked it under saline with air instilled into the rectum and there was no evidence of a leak. Nonetheless we reinforced the anastomosis with circumferentially placed 2-0 silk sutures. We then copiously irrigated the abdominal cavity and suctioned dry. Hemostasis was intact. We then turned attention to the to the right lower quadrant and identified the appendix was placed on traction the mesoappendix was divided with the LigaSure device we then came across the base the appendix on the cecum with 1 firing of the Endo PORFIRIO stapler with a blue load. Then picked a point proximal on the ileum approximately 15 cm from the ileocecal valve where we were going to use it for a loop ileostomy. We made a skin defect just to the right of the umbilicus on the anterior abdominal wall and the rectus fascia with a Bovie cautery circumferentially to create a half dollar size stoma. We carried our dissection down through the subcutaneous tissue and fatty tissue with cautery to the rectus fascia which we then opened longitudinally for the anterior sheath and transversely for the posterior sheath retracting the rectus muscle laterally. We pulled the loop ileostomy through the defect and fixed it to the abdominal wall with the stoma bridge and then interrupted 3-0 Vicryl sutures. We then irrigated the abdominal cavity copiously with normal saline closed and then closed it with running double looped 0 Maxon suture. We closed the skin with standard skin clips. Estimated blood loss for the procedure was 150 cc MAVIS King was present for the entire procedure for help with wound retraction wound closure.
--- NOTE | 2020-05-03 15:33 | PDOC PROGRESS REPORT ---
Subjective Progress Note for:: 05/03/20 Subjective:: 44 year old female came to the emergency room with complaints of severe abdominal pain, pain scale is 10/10. She was admitted last month with similar problems. Few days ago she went to ER in [place] with a similar problem given Flagyl and Cipro and was discharged. She follows with Dr. Du as an outpatient. sHe agreed to stay in the hospital for further management. And received Invanz in the emergency room. WBC count is slightly elevated around 13,600. Afebrile. 05/[id number]-gaip-old female admitted with recurrent diverticulitis. WBC is 13,600 T-max is 98.[address] Du discussed the plan with me he is going to see the patient tomorrow for further evaluation and management. Patient is complaining of pain plan to place her on IV morphine 2 mg every 4 hours as needed. She is also complaining of feeling dehydrated and urine is dark-colored. Presently receiving IV fluids at 125 cc/h plan is to increase the fluids to 200 cc/h. 05/02/2096-15-gosq-old female admitted with severe abdominal pain found to have a sigmoid diverticulitis patient is going for possible sigmoid colectomy with a temporary colostomy as per Dr. Du. Blood cultures are positive for Staphylococcus possibly coagulase-negative. Presently on IV Ancef. 05/03/20-patient went to the OR today. Successful surgery. Seen the patient at bedside after the surgery. Patient has colostomy bag present. Patient is going to be n.p.o. Reason For Visit: SIGMOID DIVERTICULITIS Physical Exam Vital Signs: Temp Pulse Resp BP Pulse Ox 98.2 F 103 H 16 128/88 H 94 05/03/20 13:58 05/03/20 13:58 05/03/20 13:58 05/03/20 13:58 05/03/20 13:58 Intake & Output 05/02/20 05/03/20 05/04/20 06:59 06:59 06:59 Intake Total 4050 2050 2337 Output Total 1450 100 750 Balance 2600 1950 1587 Weight 87.3 kg 87.5 kg General appearance: PRESENT: well-developed, other - In moderate distress Head exam: PRESENT: atraumatic Eye exam: PRESENT: PERRLA Mouth exam: PRESENT: moist, tongue midline Teeth exam: PRESENT: poor dentation Neck exam: ABSENT: carotid bruit, JVD, lymphadenopathy, thyromegaly Respiratory exam: PRESENT: clear to auscultation melvin. ABSENT: rales, rhonchi, wheezes Cardiovascular exam: PRESENT: tachycardia GI/Abdominal exam: PRESENT: other - Colostomy bag placed. Complaining of severe tenderness on gentle palpation.. ABSENT: organolmegaly, tenderness Rectal exam: PRESENT: deferred Results Laboratory Results: 05/02/20 05:56 05/02/20 05:56 04/30/20 18:00 Blood Blood Culture (PCR) - Final Staphylococcus Species 05/01/20 05:29 CK-MB (CK-2) < 0.22 Impressions: Abdomen/Pelvis CT 04/30/20 14:23 IMPRESSION: Persistent appearance of sigmoid mural thickening and surrounding mesenteric fat stranding which has been present dating back to 05/01/2018 imag ing. While this may represent a persistent infectious/inflammatory process, consideration should be given to possible underlying neoplasm. Assessment and Plan - Diagnosis (1) Diverticulitis Is this a current diagnosis for this admission?: Yes Plan: 04/30/2020-patient is going to be admitted to medical floor as an inpatient for a recurrent sigmoid diverticulitis. Patient will be n.p.o., on IV fluids, and IV morphine, IV Ativan for anxiety. GI prophylaxis initiated. Blood cultures urine cultures requested. To continue Invanz at this time. Surgical consult will be requested with the Ana Laura tomorrow. 05/01/2020-patient admitted with recurrent diverticulitis presently n.p.o., discussed the plan with the Ana Laura Du and he is going to see the patient tomorrow. plan is to continue IV Invanz. Blood cultures are pending. 05/02/2020-male admitted with sigmoid diverticulitis cysts he has this recurrent problem Dr. Du is going plan to do the surgery tomorrow. 05/03/20-patient is successful surgery today. Sigmoid colectomy with a colostomy bag placement. Patient is going to be n.p.o. at this time. (2) HTN (hypertension) Is this a current diagnosis for this admission?: No Plan: 04/30/2020-blood pressure is 156/101. Patient has a history of chronic essential hypertension to start her on IV hydralazine 10 mg every 6 hours as needed for systolic blood pressure more than 170. 05/01/2020-latest blood pressure is 118/70. Presently on IV fluids normal saline at 125 cc/h plan is to increase the fluids to 200 cc/h as per patient request. 05/02/2020-blood pressure today is 127/64. Stable. (3) Tobacco abuse Is this a current diagnosis for this admission?: No Plan: 04/30/2020-patient has history of chronic smoking smokes close to 1 pack/day. Smoking counseling is provided to place her on nicotine patch 21 mcg daily. - Plan Summary Summary: (1) Diarrhea Qualifiers: Diarrhea type: presumed infectious Qualified Code(s): R19.7 - Diarrhea, unspecified Is this a current diagnosis for this admission?: Yes Plan: 04/28/2020 Being on antibiotics 2 weeks ago (Keflex for UTI) there is a high probability that the patient has C. difficile colitis. This would certainly explain the watery diarrhea. C. difficile testing is pending. We will need to balance his fluid intake to compensate for a fluid bolus. Along with that we will need to correct electrolyte abnormalities. C. difficile testing should be back shortly. If there is positive, as I anticipate, will start oral vancomycin therapy. We will also put the patient on contact precautions. 04/29/2020 C. difficile confirmed 04/30/20-patient admitted with C. difficile diarrhea and contact solution, has 1 loose stool this morning. Receiving p.o. vancomycin at this time. Plan is to continue the present management. 05/01/20-C. difficile positive on p.o. vancomycin. No diarrhea is reported today. 05/02/20-patient is receiving p.o. vancomycin for C. difficile. Diarrhea is improving. 05/03/2020-diarrhea is resolved. Patient is expressing desire to go home today. Prescription was given for p.o. vancomycin 125 mg every 6 hours for 5 days. Patient is advised to follow-up with PCP next week. (2) Hypokalemia Is this a current diagnosis for this admission?: Yes Plan: 04/28/2020 Secondary to the diarrhea. We will increase her potassium supplementation. Because of the diarrhea I will likely give intravenous potassium initially and continue her oral potassium. 04/29/2020 Still low. I increased the oral potassium dosing. We will likely need to decrease as her diarrhea subsides. 04/30/2020-serum potassium today is 3.7 and the hypokalemia is resolving. 05/01/2020 serum potassium today is 4.1 and the hypokalemia is resolved. 05/02/2020-hyperkalemia resolved. Latest serum potassium is 4.5. 05/03/2020-serum potassium today is 5.0. Within normal limits. (3) Hyponatremia Is this a current diagnosis for this admission?: Yes Plan: 04/28/2020 Secondary to diarrhea most likely. Will be receiving gentle IV fluids to balance fluid loss from diarrhea. May also need to fluid restrict her from an oral standpoint but I believe the saline and stopping the diarrhea will correct her sodium. 04/29/2020 Monitor balance fluid loss with IV fluids versus her sodium level. We will continue to monitor and has diarrhea frequency consider sleep restriction. 04/30/2020-patient with hypokalemia serum sodium is 128 today. Asymptomatic. Plan is to continue same management. Patient has a history of heart failure to watch for the fluid overload. Patient is on fluid restriction. 05/01/2020-serum sodium is persistently low 129. Gradually improving. Patient is placed on fluid restriction and to continue directly therapy. Hyponatremia may be secondary to diuretics. 05/02/20- serum sodium is 128. Persistent hyponatremia may be secondary to diuretic therapy. 05/03/2020-serum sodium today is 128.7. Patient has chronic hyponatremia most likely secondary to diuretics. (4) Hypoalbuminemia Is this a current diagnosis for this admission?: No Plan: 04/28/2020 The patient's albumin was only 2.8. This is down from 3.5 several weeks ago. She should never felt much protein just with diarrhea. It could be delusional however I will give her 25 g of albumin and reassess. 04/29/2020 Received albumin. Will reassess tomorrow. Likely combination of age, diet and chronic illness. 04/30/2020-serum albumin is today is 2.5. Edema of the lower extremities significantly improving as per the patient. (5) Edema of both lower legs Is this a current diagnosis for this admission?: Yes Plan: 04/28/2020 Leg elevation and IV albumin at this point. I will resume diuretic therapy tomorrow. Her morbid obesity is also a contributing factor. 04/29/2020 Multifactorial. Keep legs elevated for now. 04/30/2020-edema of the lower extremities significantly improved as per the patient. 05/01/2020-edema of the lower extremities 05/03/2020-lower extremity edema improving on daily basis. (6) Longstanding persistent atrial fibrillation Is this a current diagnosis for this admission?: No Plan: 04/28/2020 The patient has a pacemaker. Right now she is exhibiting a paced rhythm. Will monitor heart rate with vital signs. She does remain on anticoagulation. Will need to watch for blood in the stool if in fact there is a colitis. Even with pronounced diarrhea there could be bleeding. 04/29/2020 Continue to monitor on telemetry. Continue metoprolol vital signs with standing. 04/30/2020-heart rate is around 74 today. Well-controlled. Patient has history of persistent atrial fibrillation. Has a pacemaker. To continue metoprolol and she is on anticoagulation with aphixiban. 05/01/20-heart rate in the 80s.. to continue metoprolol and aphixban 05/02/2020-heart rate is around 62. Plan is to continue metoprolol and anticoagulation with apixaban. 05/03/2020-heart rate in the 70s in sinus rhythm. Advised to continue metoprolol, aphixiban at home. (7) Venous stasis Is this a current diagnosis for this admission?: No Plan: 04/28/2020 Considering her morbid obesity the patient surely has venous insufficiency with stasis dermatitis. This is mistaken for cellulitis many times. She would benefit from compression therapy. We do not have full leg sequential compression in-house. We will keep legs elevated when possible. Consider compression wraps. (8) Morbid obesity Is this a current diagnosis for this admission?: No Plan: 04/28/2020 Her BMI of 52 significantly complicates several comorbidities. At this point ag gressive diuresis would be the only way to manage her condition. Some of this certainly is water weight but only a small fraction. - Plan Summary Summary: 04/28/2020 Vital signs listed oxygen saturations at 67% at one-point. I believe this was monitor error. The patient is not on oxygen therapy. I do not believe the patient meets sepsis criteria either. We will need to administer IV fluids carefully. She will receive albumin to try and limit third spacing due to decreased oncotic pressure. 05/03/2020-C. difficile colitis resolving. Going home on p.o. vancomycin. Lower extremity edema significantly improved. No acute events in the last 24 hours.
[2020-05-03] MEDS: POTASSI CL 20 MEQ/D5-1/2NS 1L 1,000 ML IV PRN (15:39)
[2020-05-03] MEDS: NICOTINE 21 MG/24 HR PATCH.TD24 TD SCH (17:36)
[2020-05-03] MEDS: PANTOPRAZOLE SODIUM 40 MG VIAL IV SCH (17:37)
[2020-05-03] MEDS: POTASSIUM CHLORIDE 20 MEQ PACKET PO SCH (19:54)
[2020-05-04] MEDS: POTASSI CL 20 MEQ/D5-1/2NS 1L 1,000 ML IV PRN ×3 (00:16→19:39)
[2020-05-04] MEDS: MORPHINE SULFATE 10 MG/ML INJ IV PRN ×6 (02:11→23:34)
[2020-05-04] MEDS: HEPARIN SOD (PORCINE) 5,000 UNIT/ML 1 ML VIAL SUBCUT SCH ×3 (05:24→22:53)
[2020-05-04] MEDS: LORAZEPAM INJ 2 MG/1 ML VIAL IV PRN ×2 (06:03→19:40)
[2020-05-04 06:48] LABS: ABSOLUTE LYMPHOCYTES (AUTO) 1.8 10^3/uL (0.5-4.7); ABSOLUTE MONOCYTES (AUTO) 0.9 10^3/uL (0.1-1.4); ABSOLUTE NEUT (AUTO) 8.4 10^3/uL (1.7-8.2); BASOPHILS % (AUTO) 0.4 % (0-2); EOSINOPHILS % (AUTO) 0.1 % (0-6); HEMATOCRIT 36.6 % (36.0-47.0); LYMPHOCYTES % (AUTO) 16.1 % (13-45); MEAN CORPUSCULAR HEMOGLOBIN 29.3 pg (27.0-33.4); MEAN CORPUSCULAR HGB CONC 35.4 g/dL (32.0-36.0); MEAN CORPUSCULAR VOLUME 83 fl (80-97); MONOCYTES % (AUTO) 8.2 % (3-13); PLATELET COUNT 310 10^3/uL (150-450); RED BLOOD COUNT 4.42 10^6/uL (3.72-5.28); RED CELL DISTRIBUTION WIDTH 14.3 % (11.5-14.0); SEGMENTED NEUTROPHILS % (AUTO) 75.2 % (42-78); TOTAL CELLS COUNTED % (AUTO) 100 %; WHITE BLOOD COUNT 11.2 10^3/uL (4.0-10.5)
[2020-05-04 07:14] LABS: ANION GAP 7 (5-19); BLOOD UREA NITROGEN 4 mg/dL (7-20); CALCIUM 8.6 mg/dL (8.4-10.2); CARBON DIOXIDE 21 mmol/L (22-30); CHLORIDE 107 mmol/L (98-107); GLUCOSE 134 mg/dL (75-110); POTASSIUM 3.6 mmol/L (3.6-5.0)
--- NOTE | 2020-05-04 09:27 | PDOC PROGRESS REPORT ---
Subjective Progress Note for:: 05/04/20 Subjective:: 44 year old female came to the emergency room with complaints of severe abdominal pain, pain scale is 10/10. She was admitted last month with similar problems. Few days ago she went to ER in [place] with a similar problem given Flagyl and Cipro and was discharged. She follows with Dr. Du as an outpatient. sHe agreed to stay in the hospital for further management. And received Invanz in the emergency room. WBC count is slightly elevated around 13,600. Afebrile. 05/[id number]-old female admitted with recurrent diverticulitis. WBC is 13,600 T-max is 98.[address] Du discussed the plan with me he is going to see the patient tomorrow for further evaluation and management. Patient is complaining of pain plan to place her on IV morphine 2 mg every 4 hours as needed. She is also complaining of feeling dehydrated and urine is dark-colored. Presently receiving IV fluids at 125 cc/h plan is to increase the fluids to 200 cc/h. 05/02/2070-81-usja-old female admitted with severe abdominal pain found to have a sigmoid diverticulitis patient is going for possible sigmoid colectomy with a temporary colostomy as per Dr. Du. Blood cultures are positive for Staphylococcus possibly coagulase-negative. Presently on IV Ancef. 05/03/20-patient went to the OR today. Successful surgery. Seen the patient at bedside after the surgery. Patient has colostomy bag present. Patient is going to be n.p.o. 05/04/20-patient has a successful surgery yesterday sigmoid colectomy, temporary colostomy placement. Patient has NG tube. Complaining of abdominal pain. For further management as per Dr. Du. Reason For Visit: SIGMOID DIVERTICULITIS Physical Exam Vital Signs: Temp Pulse Resp BP Pulse Ox 98.4 F 106 H 16 147/95 H 96 05/04/20 07:59 05/04/20 07:59 05/04/20 07:59 05/04/20 07:59 05/04/20 07:59 Intake & Output 05/03/20 05/04/20 05/05/20 06:59 06:59 06:59 Intake Total 0 4487 Output Total 100 2900 Balance 1950 1587 Weight 87.5 kg 87.3 kg General appearance: PRESENT: mild distress, well-developed Head exam: PRESENT: atraumatic Eye exam: PRESENT: PERRLA Ear exam: PRESENT: normal external ear exam Neck exam: PRESENT: other - Nasogastric tube in place.. ABSENT: carotid bruit, JVD, lymphadenopathy, thyromegaly Respiratory exam: PRESENT: clear to auscultation melvin. ABSENT: rales, rhonchi, wheezes Cardiovascular exam: PRESENT: RRR. ABSENT: diastolic murmur, rubs, systolic murmur GI/Abdominal exam: PRESENT: normal bowel sounds, soft. ABSENT: distended, guarding, mass, organolmegaly, rebound, tenderness Rectal exam: PRESENT: deferred Extremities exam: PRESENT: full ROM. ABSENT: calf tenderness, clubbing, pedal edema Neurological exam: PRESENT: alert, awake, oriented to person, oriented to place, oriented to time, oriented to situation, CN II-XII grossly intact. ABSENT: motor sensory deficit Psychiatric exam: PRESENT: appropriate affect, normal mood. ABSENT: homicidal ideation, suicidal ideation Results Laboratory Results: 05/04/20 05:53 05/04/20 05:53 05/04/20 05/04/20 05:53 05:53 WBC 11.2 H RBC 4.42 Hgb 13.0 Hct 36.6 MCV 83 MCH 29.3 MCHC 35.4 RDW 14.3 H Plt Count 310 Seg Neutrophils % 75.2 Sodium 135.0 L Potassium 3.6 Chloride 107 Carbon Dioxide 21 L Anion Gap 7 BUN 4 L Creatinine 0.42 L Est GFR ( Amer) > 60 Glucose 134 H Calcium 8.6 Magnesium 1.9 04/30/20 18:00 Blood Blood Culture (PCR) - Final Staphylococcus Species 04/30/20 18:00 Blood Blood Culture - Final Staphylococcus Auricularis 05/01/20 05:29 CK-MB (CK-2) < 0.22 Impressions: Abdomen/Pelvis CT 04/30/20 14:23 IMPRESSION: Persistent appearance of sigmoid mural thickening and surrounding mesenteric fat stranding which has been present dating back to 05/01/2018 imaging. While this may represent a persistent infectious/inflammatory process, consideration should be given to possible underlying neoplasm. Assessment and Plan - Diagnosis (1) Diverticulitis Is this a current diagnosis for this admission?: Yes Plan: 04/30/2020-patient is going to be admitted to medical floor as an inpatient for a recurrent sigmoid diverticulitis. Patient will be n.p.o., on IV fluids, and IV morphine, IV Ativan for anxiety. GI prophylaxis initiated. Blood cultures urine cultures requested. To continue Invanz at this time. Surgical consult will be requested with the Ana Laura tomorrow. 05/01/2020-patient admitted with recurrent diverticulitis presently n.p.o., discussed the plan with the [facility] Laura Du and he is going to see the patient tomorrow. plan is to continue IV Invanz. Blood cultures are pending. 05/02/2020-male admitted with sigmoid diverticulitis cysts he has this recurrent problem Dr. Du is going plan to do the surgery tomorrow. 05/03/20-patient is successful surgery today. Sigmoid colectomy with a colostomy bag placement. Patient is going to be n.p.o. at this time. 05/04/2020-patient had a sigmoid colectomy with temporary colostomy placement yesterday. Still has the NG tube in place. Receiving IV fluids and IV antibiotic therapy. Dr. Du is on board. (2) HTN (hypertension) Is this a current diagnosis for this admission?: No Plan: 04/30/2020-blood pressure is 156/101. Patient has a history of chronic essential hypertension to start her on IV hydralazine 10 mg every 6 hours as needed for systolic blood pressure more than 170. 05/01/2020-latest blood pressure is 118/70. Presently on IV fluids normal saline at 125 cc/h plan is to increase the fluids to 200 cc/h as per patient request. 05/02/2020-blood pressure today is 127/64. Stable. 05/04/2020-blood pressure today is 138/86. Stable. Plan is to continue the present management. (3) Tobacco abuse Is this a current diagnosis for this admission?: No Plan: 04/30/2020-patient has history of chronic smoking smokes close to 1 pack/day. Smoking counseling is provided to place her on nicotine patch 21 mcg daily. - Plan Summary Summary: (1) Diarrhea Qualifiers: Diarrhea type: presumed infectious Qualified Code(s): R19.7 - Diarrhea, unspecified Is this a current diagnosis for this admission?: Yes Plan: 04/28/2020 Being on antibiotics 2 weeks ago (Keflex for UTI) there is a high probability that the patient has C. difficile colitis. This would certainly explain the watery diarrhea. C. difficile testing is pending. We will need to balance his fluid intake to compensate for a fluid bolus. Along with that we will need to correct electrolyte abnormalities. C. difficile testing should be back shortly. If there is positive, as I anticipate, will start oral vancomycin therapy. We will also put the patient on contact precautions. 04/29/2020 C. difficile confirmed 04/30/20-patient admitted with C. difficile diarrhea and contact solution, has 1 loose stool this morning. Receiving p.o. vancomycin at this time. Plan is to continue the present management. 05/01/20-C. difficile positive on p.o. vancomycin. No diarrhea is reported today. 05/02/20-patient is receiving p.o. vancomycin for C. difficile. Diarrhea is improving. 05/03/2020-diarrhea is resolved. Patient is expressing desire to go home today. Prescription was given for p.o. vancomycin 125 mg every 6 hours for 5 days. Patient is advised to follow-up with PCP next week. (2) Hypokalemia Is this a current diagnosis for this admission?: Yes Plan: 04/28/2020 Secondary to the diarrhea. We will increase her potassium supplementation. Because of the diarrhea I will likely give intravenous potassium initially and continue her oral potassium. 04/29/2020 Still low. I increased the oral potassium dosing. We will likely need to decrease as her diarrhea subsides. 04/30/2020-serum potassium today is 3.7 and the hypokalemia is resolving. 05/01/2020 serum potassium today is 4.1 and the hypokalemia is resolved. 05/02/2020-hyperkalemia resolved. Latest serum potassium is 4.5. 05/03/2020-serum potassium today is 5.0. Within normal limits. (3) Hyponatremia Is this a current diagnosis for this admission?: Yes Plan: 04/28/2020 Secondary to diarrhea most likely. Will be receiving gentle IV fluids to balance fluid loss from diarrhea. May also need to fluid restrict her from an oral standpoint but I believe the saline and stopping the diarrhea will correct her sodium. 04/29/2020 Monitor balance fluid loss with IV fluids versus her sodium level. We will continue to monitor and has diarrhea frequency consider sleep restriction. 04/30/2020-patient with hypokalemia serum sodium is 128 today. Asymptomatic. Plan is to continue same management. Patient has a history of heart failure to watch for the fluid overload. Patient is on fluid restriction. 05/01/2020-serum sodium is persistently low 129. Gradually improving. Patient is placed on fluid restriction and to continue directly therapy. Hyponatremia may be secondary to diuretics. 05/02/20- serum sodium is 128. Persistent hyponatremia may be secondary to diuretic therapy. 05/03/2020-serum sodium today is 128.7. Patient has chronic hyponatremia most likely secondary to diuretics. (4) Hypoalbuminemia Is this a current diagnosis for this admission?: No Plan: 04/28/2020 The patient's albumin was only 2.8. This is down from 3.5 several weeks ago. S he should never felt much protein just with diarrhea. It could be delusional however I will give her 25 g of albumin and reassess. 04/29/2020 Received albumin. Will reassess tomorrow. Likely combination of age, diet and chronic illness. 04/30/2020-serum albumin is today is 2.5. Edema of the lower extremities significantly improving as per the patient. (5) Edema of both lower legs Is this a current diagnosis for this admission?: Yes Plan: 04/28/2020 Leg elevation and IV albumin at this point. I will resume diuretic therapy tomorrow. Her morbid obesity is also a contributing factor. 04/29/2020 Multifactorial. Keep legs elevated for now. 04/30/2020-edema of the lower extremities significantly improved as per the patient. 05/01/2020-edema of the lower extremities 05/03/2020-lower extremity edema improving on daily basis. (6) Longstanding persistent atrial fibrillation Is this a current diagnosis for this admission?: No Plan: 04/28/2020 The patient has a pacemaker. Right now she is exhibiting a paced rhythm. Will monitor heart rate with vital signs. She does remain on anticoagulation. Will need to watch for blood in the stool if in fact there is a colitis. Even with pronounced diarrhea there could be bleeding. 04/29/2020 Continue to monitor on telemetry. Continue metoprolol vital signs with standing. 04/30/2020-heart rate is around 74 today. Well-controlled. Patient has history of persistent atrial fibrillation. Has a pacemaker. To continue metoprolol and she is on anticoagulation with aphixiban. 05/01/20-heart rate in the 80s.. to continue metoprolol and aphixban 05/02/2020-heart rate is around 62. Plan is to continue metoprolol and anticoagulation with apixaban. 05/03/2020-heart rate in the 70s in sinus rhythm. Advised to continue metoprolol, aphixiban at home. (7) Venous stasis Is this a current diagnosis for this admission?: No Plan: 04/28/2020 Considering her morbid obesity the patient surely has venous insufficiency with stasis dermatitis. This is mistaken for cellulitis many times. She would benefit from compression therapy. We do not have full leg sequential compression in-house. We will keep legs elevated when possible. Consider co mpression wraps. (8) Morbid obesity Is this a current diagnosis for this admission?: No Plan: 04/28/2020 Her BMI of 52 significantly complicates several comorbidities. At this point aggressive diuresis would be the only way to manage her condition. Some of this certainly is water weight but only a small fraction. - Plan Summary Summary: 04/28/2020 Vital signs listed oxygen saturations at 67% at one-point. I believe this was monitor error. The patient is not on oxygen therapy. I do not believe the patient meets sepsis criteria either. We will need to administer IV fluids carefully. She will receive albumin to try and limit third spacing due to decreased oncotic pressure. 05/03/2020-C. difficile colitis resolving. Going home on p.o. vancomycin. Lower extremity edema significantly improved. No acute events in the last 24 hours.
[2020-05-04] MEDS: ERTAPENEM SODIUM 1 GM in NORMAL SALINE 50 ML IV SCH (09:41)
[2020-05-04] MEDS: PANTOPRAZOLE SODIUM 40 MG VIAL IV SCH (09:42)
[2020-05-04] MEDS: NICOTINE 21 MG/24 HR PATCH.TD24 TD SCH (09:42)
--- NOTE | 2020-05-04 13:04 | PDOC PROGRESS REPORT ---
Subjective Progress Note for:: 05/04/20 Subjective:: c/o sore throat Reason For Visit: SIGMOID DIVERTICULITIS Physical Exam Vital Signs: Temp Pulse Resp BP Pulse Ox 98.4 F 104 H 16 140/100 H 97 05/04/20 11:54 05/04/20 11:54 05/04/20 11:54 05/04/20 11:54 05/04/20 11:54 Intake & Output 05/03/20 05/04/20 05/05/20 06:59 06:59 06:59 Intake Total 2050 4487 1050 Output Total 100 2900 Balance 1950 1587 1050 Weight 87.5 kg 87.3 kg General appearance: PRESENT: no acute distress Head exam: PRESENT: atraumatic Eye exam: PRESENT: conjunctiva pink Ear exam: PRESENT: normal external ear exam Mouth exam: PRESENT: moist Neck exam: PRESENT: full ROM Respiratory exam: PRESENT: clear to auscultation melvin Cardiovascular exam: PRESENT: RRR Pulses: PRESENT: normal radial pulses, normal femoral pulses Breast: PRESENT: Normal GI/Abdominal exam: PRESENT: soft, other - stoma pink Rectal exam: ABSENT: fecal impaction Gentrourinary exam: PRESENT: indwelling catheter Extremities exam: PRESENT: full ROM Musculoskeletal exam: PRESENT: full ROM Neurological exam: PRESENT: alert, awake, oriented to person, oriented to place Psychiatric exam: PRESENT: flat affect Skin exam: PRESENT: dry Results Laboratory Results: 05/04/20 05:53 05/04/20 05:53 05/04/20 05/04/20 05:53 05:53 WBC 11.2 H RBC 4.42 Hgb 13.0 Hct 36.6 MCV 83 MCH 29.3 MCHC 35.4 RDW 14.3 H Plt Count 310 Seg Neutrophils % 75.2 Sodium 135.0 L Potassium 3.6 Chloride 107 Carbon Dioxide 21 L Anion Gap 7 BUN 4 L Creatinine 0.42 L Est GFR ( Amer) > 60 Glucose 134 H Calcium 8.6 Magnesium 1.9 04/30/20 18:00 Blood Blood Culture (PCR) - Final Staphylococcus Species 04/30/20 18:00 Blood Blood Culture - Final Staphylococcus Auricularis 05/01/20 05:29 CK-MB (CK-2) < 0.22 Impressions: Abdomen/Pelvis CT 04/30/20 14:23 IMPRESSION: Persistent appearance of sigmoid mural thickening and surrounding mesenteric fat stranding which has been present dating back to 05/01/2018 imaging. While this may represent a persistent infectious/inflammatory process, consideration should be given to possible underlying neoplasm. Assessment & Plan - Diagnosis (1) Diverticulitis Is this a current diagnosis for this admission?: Yes - Plan Summary Plan Summary: pt s/p sigmoid colectomyt iwth temp ileostomy pod 1 c/o ng tube sore throat taking sips of water plan dc ng out of bed ambulating
[2020-05-05] MEDS: POTASSI CL 20 MEQ/D5-1/2NS 1L 1,000 ML IV PRN ×3 (01:39→19:42)
[2020-05-05] MEDS: LORAZEPAM INJ 2 MG/1 ML VIAL IV PRN ×3 (01:39→19:41)
[2020-05-05] MEDS: MORPHINE SULFATE 10 MG/ML INJ IV PRN ×5 (03:53→21:40)
[2020-05-05] MEDS: HEPARIN SOD (PORCINE) 5,000 UNIT/ML 1 ML VIAL SUBCUT SCH ×3 (06:00→21:42)
[2020-05-05 06:33] LABS: ABSOLUTE EOSINOPHILS # (AUTO) 0.1 10^3/uL (0.0-0.6); ABSOLUTE LYMPHOCYTES (AUTO) 1.8 10^3/uL (0.5-4.7); ABSOLUTE MONOCYTES (AUTO) 0.9 10^3/uL (0.1-1.4); ABSOLUTE NEUT (AUTO) 4.4 10^3/uL (1.7-8.2); BASOPHILS % (AUTO) 0.4 % (0-2); EOSINOPHILS % (AUTO) 1.1 % (0-6); HEMATOCRIT 33.6 % (36.0-47.0); HEMOGLOBIN 11.6 g/dL (12.0-15.5); LYMPHOCYTES % (AUTO) 25.3 % (13-45); MEAN CORPUSCULAR HEMOGLOBIN 28.8 pg (27.0-33.4); MEAN CORPUSCULAR HGB CONC 34.4 g/dL (32.0-36.0); MEAN CORPUSCULAR VOLUME 84 fl (80-97); MONOCYTES % (AUTO) 12.2 % (3-13); PLATELET COUNT 280 10^3/uL (150-450); RED BLOOD COUNT 4.02 10^6/uL (3.72-5.28); RED CELL DISTRIBUTION WIDTH 14.4 % (11.5-14.0); TOTAL CELLS COUNTED % (AUTO) 100 %; WHITE BLOOD COUNT 7.2 10^3/uL (4.0-10.5)
[2020-05-05 06:56] LABS: ALBUMIN 2.7 g/dL (3.5-5.0); ALKALINE PHOSPHATASE 40 U/L (38-126); ANION GAP 7 (5-19); ASPARTATE AMINO TRANSFERASE 17 U/L (14-36); BILIRUBIN,TOTAL 0.3 mg/dL (0.2-1.3); BLOOD UREA NITROGEN 3 mg/dL (7-20); CALCIUM 8.3 mg/dL (8.4-10.2); CARBON DIOXIDE 25 mmol/L (22-30); CHLORIDE 104 mmol/L (98-107); GLUCOSE 111 mg/dL (75-110); POTASSIUM 3.3 mmol/L (3.6-5.0); TOTAL PROTEIN 5.3 g/dL (6.3-8.2)
[2020-05-05] MEDS ORDERED: POTASSIUM CHLORIDE 10 MEQ TABLET.ER PO ONE ×2 (07:27→10:00)
--- NOTE | 2020-05-05 09:34 | PDOC PROGRESS REPORT ---
Subjective Progress Note for:: 05/05/20 Subjective:: 44 year old female came to the emergency room with complaints of severe abdominal pain, pain scale is 10/10. She was admitted last month with similar problems. Few days ago she went to ER in [place] with a similar problem given Flagyl and Cipro and was discharged. She follows with Dr. Du as an outpatient. sHe agreed to stay in the hospital for further management. And received Invanz in the emergency room. WBC count is slightly elevated around 13,600. Afebrile. 05/01/[id number]-phgg-old female admitted with recurrent diverticulitis. WBC is 13,600 T-max is 98.[address] Du discussed the plan with me he is going to see the patient tomorrow for further evaluation and management. Patient is complaining of pain plan to place her on IV morphine 2 mg every 4 hours as needed. She is also complaining of feeling dehydrated and urine is dark-colored. Presently receiving IV fluids at 125 cc/h plan is to increase the fluids to 200 cc/h. 05/02/2051-03-tzad-old female admitted with severe abdominal pain found to have a sigmoid diverticulitis patient is going for possible sigmoid colectomy with a temporary colostomy as per Dr. Du. Blood cultures are positive for Staphylococcus possibly coagulase-negative. Presently on IV Ancef. 05/03/20-patient went to the OR today. Successful surgery. Seen the patient at bedside after the surgery. Patient has colostomy bag present. Patient is going to be n.p.o. 05/04/20-patient has a successful surgery yesterday sigmoid colectomy, temporary colostomy placement. Patient has NG tube. Complaining of abdominal pain. For further management as per Dr. Du. 05/05/2020-no acute events in the last 24 hours. T-max is 99.1. White cell count is normal. NG tube [place] today patient is still n.p.o. Waiting for Dr. Du input. Reason For Visit: SIGMOID DIVERTICULITIS Physical Exam Vital Signs: Temp Pulse Resp BP Pulse Ox 98.3 F 102 H 17 136/98 H 96 05/05/20 08:00 05/05/20 08:00 05/05/20 08:00 05/05/20 08:00 05/05/20 08:00 Intake & Output 05/04/20 05/05/20 05/06/20 06:59 06:59 06:59 Intake Total 4487 2800 Output Total 2900 2900 Balance 1587 -100 Weight 87.3 kg 85.4 kg General appearance: PRESENT: mild distress, well-developed Head exam: PRESENT: atraumatic Eye exam: PRESENT: PERRLA Ear exam: PRESENT: normal external ear exam Mouth exam: PRESENT: neck supple Teeth exam: PRESENT: poor dentation Respiratory exam: PRESENT: decreased breath sounds Cardiovascular exam: PRESENT: tachycardia GI/Abdominal exam: PRESENT: other - Abdomen is extremely tender to touch, bowel sounds are ready minimal colostomy bag in place. Extremities exam: PRESENT: full ROM. ABSENT: calf tenderness, clubbing, pedal edema Neurological exam: PRESENT: alert, awake, oriented to person, oriented to place, oriented to time, oriented to situation, CN II-XII grossly intact. ABSENT: motor sensory deficit Psychiatric exam: PRESENT: appropriate affect, normal mood. ABSENT: homicidal ideation, suicidal ideation Results Laboratory Results: 05/05/20 05:37 05/05/20 05:37 05/05/20 05/05/20 05:37 05:37 WBC 7.2 RBC 4.02 Hgb 11.6 L Hct 33.6 L MCV 84 MCH 28.8 MCHC 34.4 RDW 14.4 H Plt Count 280 Seg Neutrophils % 61.0 Sodium 135.6 L Potassium 3.3 L Chloride 104 Carbon Dioxide 25 Anion Gap 7 BUN 3 L Creatinine 0.43 L Est GFR ( Amer) > 60 Glucose 111 H Calcium 8.3 L Magnesium 1.9 Total Bilirubin 0.3 AST 17 Alkaline Phosphatase 40 Total Protein 5.3 L Albumin 2.7 L 04/30/20 18:00 Blood Blood Culture (PCR) - Final Staphylococcus Species 04/30/20 18:00 Blood Blood Culture - Final Staphylococcus Auricularis 05/01/20 05:29 CK-MB (CK-2) < 0.22 Impressions: Abdomen/Pelvis CT 04/30/20 14:23 IMPRESSION: Persistent appearance of sigmoid mural thickening and surrounding mesenteric fat stranding which has been present dating back to 05/01/2018 imaging. While this may represent a persistent infectious/inflammatory process, consideration should be given to possible underlying neoplasm. Assessment and Plan - Diagnosis (1) Diverticulitis Is this a current diagnosis for this admission?: Yes Plan: 04/30/2020-patient is going to be admitted to medical floor as an inpatient for a recurrent sigmoid diverticulitis. Patient will be n.p.o., on IV fluids, and IV morphine, IV Ativan for anxiety. GI prophylaxis initiated. Blood cultures urine cultures requested. To continue Invanz at this time. Surgical consult will be requested with the Ana Laura tomorrow. 05/01/2020-patient admitted with recurrent diverticulitis presently n.p.o., discussed the plan with the [facility] Laura Du and he is going to see the patient tomorrow. plan is to continue IV Invanz. Blood cultures are pending. 05/02/2020-male admitted with sigmoid diverticulitis cysts he has this recurrent problem Dr. Du is going plan to do the surgery tomorrow. 05/03/20-patient is successful surgery today. Sigmoid colectomy with a colostomy bag placement. Patient is going to be n.p.o. at this time. 05/04/2020-patient had a sigmoid colectomy with temporary colostomy placement yesterday. Still has the NG tube in place. Receiving IV fluids and IV antibiotic therapy. Dr. Du is on board. 2119-postop day 2 sigmoid colectomy with temporary colostomy placement. NG tube was removed and patient is still n.p.o. Dietary recommendations as per Dr. Du. (2) HTN (hypertension) Is this a current diagnosis for this admission?: No Plan: 04/30/2020-blood pressure is 156/101. Patient has a history of chronic essential hypertension to start her on IV hydralazine 10 mg every 6 hours as needed for systolic blood pressure more than 170. 05/01/2020-latest blood pressure is 118/70. Presently on IV fluids normal saline at 125 cc/h plan is to increase the fluids to 200 cc/h as per patient request. 05/02/2020-blood pressure today is 127/64. Stable. 05/04/2020-blood pressure today is 138/86. Stable. Plan is to continue the present management. 05/05/20-blood pressure today is 135/86. Stable. (3) Tobacco abuse Is this a current diagnosis for this admission?: No - Plan Summary Summary: (1) Diarrhea Qualifiers: Diarrhea type: presumed infectious Qualified Code(s): R19.7 - Diarrhea, unspecified Is this a current diagnosis for this admission?: Yes Plan: 04/28/2020 Being on antibiotics 2 weeks ago (Keflex for UTI) there is a high probability that the patient has C. difficile colitis. This would certainly explain the watery diarrhea. C. difficile testing is pending. We will need to balance his fluid intake to compensate for a fluid bolus. Along with that we will need to correct electrolyte abnormalities. C. difficile testing should be back shortly. If there is positive, as I anticipate, will start oral vancomycin therapy. We will also put the patient on contact precautions. 04/29/2020 C. difficile confirmed 04/30/20-patient admitted with C. difficile diarrhea and contact solution, has 1 loose stool this morning. Receiving p.o. vancomycin at this time. Plan is to continue the present management. 05/01/20-C. difficile positive on p.o. vancomycin. No diarrhea is reported today. 05/02/20-patient is receiving p.o. vancomycin for C. difficile. Diarrhea is improving. 05/03/2020-diarrhea is resolved. Patient is expressing desire to go home today. Prescription was given for p.o. vancomycin 125 mg every 6 hours for 5 days. Patient is advised to follow-up with PCP next week. (2) Hypokalemia Is this a current diagnosis for this admission?: Yes Plan: 04/28/2020 Secondary to the diarrhea. We will increase her potassium supplementation. Because of the diarrhea I will likely give intravenous potassium initially and continue her oral potassium. 04/29/2020 Still low. I increased the oral potassium dosing. We will likely need to decrease as her diarrhea subsides. 04/30/2020-serum potassium today is 3.7 and the hypokalemia is resolving. 05/01/2020 serum potassium today is 4.1 and the hypokalemia is resolved. 05/02/2020-hyperkalemia resolved. Latest serum potassium is 4.5. 05/03/2020-serum potassium today is 5.0. Within normal limits. (3) Hyponatremia Is this a current diagnosis for this admission?: Yes Plan: 04/28/2020 Secondary to diarrhea most likely. Will be receiving gentle IV fluids to balance fluid loss from diarrhea. May also need to fluid restrict her from an oral standpoint but I believe the saline and stopping the diarrhea will correct her sodium. 04/29/2020 Monitor balance fluid loss with IV fluids versus her sodium level. We will continue to monitor and has diarrhea frequency consider sleep restriction. 04/30/2020-patient with hypokalemia serum sodium is 128 today. Asymptomatic. Plan is to continue same management. Patient has a history of heart failure to watch for the fluid overload. Patient is on fluid restriction. 05/01/2020-serum sodium is persistently low 129. Gradually improving. Patient is placed on fluid restriction and to continue directly therapy. Hyponatremia may be secondary to diuretics. 05/02/20- serum sodium is 128. Persistent hyponatremia may be secondary to diu retic therapy. 05/03/2020-serum sodium today is 128.7. Patient has chronic hyponatremia most likely secondary to diuretics. (4) Hypoalbuminemia Is this a current diagnosis for this admission?: No Plan: 04/28/2020 The patient's albumin was only 2.8. This is down from 3.5 several weeks ago. She should never felt much protein just with diarrhea. It could be delusional however I will give her 25 g of albumin and reassess. 04/29/2020 Received albumin. Will reassess tomorrow. Likely combination of age, diet and chronic illness. 04/30/2020-serum albumin is today is 2.5. Edema of the lower extremities significantly improving as per the patient. (5) Edema of both lower legs Is this a current diagnosis for this admission?: Yes Plan: 04/28/2020 Leg elevation and IV albumin at this point. I will resume diuretic therapy tomorrow. Her morbid obesity is also a contributing factor. 04/29/2020 Multifactorial. Keep legs elevated for now. 04/30/2020-edema of the lower extremities significantly improved as per the patient. 05/01/2020-edema of the lower extremities 05/03/2020-lower extremity edema improving on daily basis. (6) Longstanding persistent atrial fibrillation Is this a current diagnosis for this admission?: No Plan: 04/28/2020 The patient has a pacemaker. Right now she is exhibiting a paced rhythm. Will monitor heart rate with vital signs. She does remain on anticoagulation. Will need to watch for blood in the stool if in fact there is a colitis. Even with pronounced diarrhea there could be bleeding. 04/29/2020 Continue to monitor on telemetry. Continue metoprolol vital signs with standing. 04/30/2020-heart rate is around 74 today. Well-controlled. Patient has history of persistent atrial fibrillation. Has a pacemaker. To continue metoprolol and she is on anticoagulation with aphixiban. 05/01/20-heart rate in the 80s.. to continue metoprolol and aphixban 05/02/2020-heart rate is around 62. Plan is to continue metoprolol and anticoagulation with apixaban. 05/03/2020-heart rate in the 70s in sinus rhythm. Advised to continue metoprolol, aphixiban at home. (7) Venous stasis Is this a current diagnosis for this admission?: No Plan: 04/28/2020 Considering her morbid obesity the patient surely has venous insufficiency with stasis dermatitis. This is mistaken for cellulitis many times. She would benefit from compression therapy. We do not have full leg sequential compression in-house. We will keep legs elevated when possible. Consider compression wraps. (8) Morbid obesity Is this a current diagnosis for this admission?: No Plan: 04/28/2020 Her BMI of 52 significantly complicates several comorbidities. At this point aggressive diuresis would be the only way to manage her condition. Some of this certainly is water weight but only a small fraction. - Plan Summary Summary: 04/28/2020 Vital signs listed oxygen saturations at 67% at one-point. I believe this was monitor error. The patient is not on oxygen therapy. I do not believe the patient meets sepsis criteria either. We will need to administer IV fluids carefully. She will receive albumin to try and limit third spacing due to decreased oncotic pressure. 05/03/2020-C. difficile colitis resolving. Going home on p.o. vancomycin. Lower extremity edema significantly improved. No acute events in the last 24 hours.
[2020-05-05] MEDS: NICOTINE 21 MG/24 HR PATCH.TD24 TD SCH (09:48)
[2020-05-05] MEDS: PANTOPRAZOLE SODIUM 40 MG VIAL IV SCH (09:48)
[2020-05-05] MEDS: ERTAPENEM SODIUM 1 GM in NORMAL SALINE 50 ML IV SCH (09:59)
[2020-05-05] MEDS: ONDANSETRON HCL INJ/PF 4 MG/2 ML SDV IV PRN ×2 (13:47→21:42)
--- NOTE | 2020-05-05 14:09 | PDOC PROGRESS REPORT ---
Subjective Progress Note for:: 05/05/20 Subjective:: feels better, some stool via stoma Reason For Visit: SIGMOID DIVERTICULITIS Physical Exam Vital Signs: Temp Pulse Resp BP Pulse Ox 98.6 F 105 H 17 134/89 H 93 05/05/20 12:00 05/05/20 12:00 05/05/20 12:00 05/05/20 12:00 05/05/20 12:00 Intake & Output 05/04/20 05/05/20 05/06/20 06:59 06:59 06:59 Intake Total 4487 2800 1000 Output Total 2900 2900 720 Balance 1587 -100 280 Weight 87.3 kg 85.4 kg General appearance: PRESENT: no acute distress Head exam: PRESENT: normocephalic Eye exam: PRESENT: EOMI Ear exam: PRESENT: normal external ear exam Mouth exam: PRESENT: moist Neck exam: PRESENT: full ROM Respiratory exam: PRESENT: clear to auscultation melvin Cardiovascular exam: PRESENT: RRR Pulses: PRESENT: normal radial pulses, normal femoral pulses Vascular exam: PRESENT: normal capillary refill Breast: PRESENT: Normal GI/Abdominal exam: PRESENT: soft, other - stoma functional Rectal exam: PRESENT: deferred Extremities exam: PRESENT: full ROM Musculoskeletal exam: PRESENT: full ROM Neurological exam: PRESENT: alert, awake Psychiatric exam: PRESENT: appropriate affect Skin exam: PRESENT: dry Results Laboratory Results: 05/05/20 05:37 05/05/20 05:37 05/05/20 05/05/20 05:37 05:37 WBC 7.2 RBC 4.02 Hgb 11.6 L Hct 33.6 L MCV 84 MCH 28.8 MCHC 34.4 RDW 14.4 H Plt Count 280 Seg Neutrophils % 61.0 Sodium 135.6 L Potassium 3.3 L Chloride 104 Carbon Dioxide 25 Anion Gap 7 BUN 3 L Creatinine 0.43 L Est GFR ( Amer) > 60 Glucose 111 H Calcium 8.3 L Magnesium 1.9 Total Bilirubin 0.3 AST 17 Alkaline Phosphatase 40 Total Protein 5.3 L Albumin 2.7 L 05/01/20 05:29 CK-MB (CK-2) < 0.22 Impressions: Abdomen/Pelvis CT 04/30/20 14:23 IMPRESSION: Persistent appearance of sigmoid mural thickening and surrounding mesenteric fat stranding which has been present dating back to 05/01/2018 imaging. While this may represent a persistent infectious/inflammatory process, consideration should be given to possible underlying neoplasm. Assessment & Plan - Diagnosis (1) Diverticulitis Is this a current diagnosis for this admission?: Yes - Plan Summary Plan Summary: pt s/p sigmoid colectomyt iwth temp ileostomy pod 1 c/o ng tube sore throat taking sips of water plan dc ng out of bed ambulating
[2020-05-06] MEDS: LORAZEPAM INJ 2 MG/1 ML VIAL IV PRN ×2 (01:35→18:52)
[2020-05-06] MEDS: MORPHINE SULFATE 10 MG/ML INJ IV PRN ×3 (01:35→10:42)
[2020-05-06] MEDS: POTASSI CL 20 MEQ/D5-1/2NS 1L 1,000 ML IV PRN ×2 (03:43→13:15)
[2020-05-06] MEDS: HEPARIN SOD (PORCINE) 5,000 UNIT/ML 1 ML VIAL SUBCUT SCH ×3 (05:41→21:32)
[2020-05-06 06:35] LABS: ABSOLUTE EOSINOPHILS # (AUTO) 0.2 10^3/uL (0.0-0.6); ABSOLUTE LYMPHOCYTES (AUTO) 1.7 10^3/uL (0.5-4.7); ABSOLUTE MONOCYTES (AUTO) 0.6 10^3/uL (0.1-1.4); ABSOLUTE NEUT (AUTO) 2.7 10^3/uL (1.7-8.2); BASOPHILS % (AUTO) 0.6 % (0-2); EOSINOPHILS % (AUTO) 4.2 % (0-6); HEMATOCRIT 32.2 % (36.0-47.0); HEMOGLOBIN 11.2 g/dL (12.0-15.5); LYMPHOCYTES % (AUTO) 32.4 % (13-45); MEAN CORPUSCULAR HEMOGLOBIN 28.9 pg (27.0-33.4); MEAN CORPUSCULAR HGB CONC 34.8 g/dL (32.0-36.0); MEAN CORPUSCULAR VOLUME 83 fl (80-97); MONOCYTES % (AUTO) 11.8 % (3-13); PLATELET COUNT 276 10^3/uL (150-450); RED BLOOD COUNT 3.87 10^6/uL (3.72-5.28); RED CELL DISTRIBUTION WIDTH 14.5 % (11.5-14.0); TOTAL CELLS COUNTED % (AUTO) 100 %; WHITE BLOOD COUNT 5.4 10^3/uL (4.0-10.5)
[2020-05-06] MEDS: PANTOPRAZOLE SODIUM 40 MG VIAL IV SCH (09:09)
[2020-05-06] MEDS: ERTAPENEM SODIUM 1 GM in NORMAL SALINE 50 ML IV SCH (09:11)
[2020-05-06] MEDS: ACETAMINOPHEN 325 MG TABLET PO PRN (09:14)
[2020-05-06] MEDS: NICOTINE 21 MG/24 HR PATCH.TD24 TD SCH (09:15)
--- NOTE | 2020-05-06 09:51 | PDOC PROGRESS REPORT ---
Subjective Progress Note for:: 05/06/20 Subjective:: 44 year old female came to the emergency room with complaints of severe abdominal pain, pain scale is 10/10. She was admitted last month with similar problems. Few days ago she went to ER in [place] with a similar problem given Flagyl and Cipro and was discharged. She follows with Dr. Du as an outpatient. sHe agreed to stay in the hospital for further management. And received Invanz in the emergency room. WBC count is slightly elevated around 13,600. Afebrile. 05/01/[id number]-old female admitted with recurrent diverticulitis. WBC is 13,600 T-max is 98.[address] Du discussed the plan with me he is going to see the patient tomorrow for further evaluation and management. Patient is complaining of pain plan to place her on IV morphine 2 mg every 4 hours as needed. She is also complaining of feeling dehydrated and urine is dark-colored. Presently receiving IV fluids at 125 cc/h plan is to increase the fluids to 200 cc/h. 05/02/2048-25-cqsj-old female admitted with severe abdominal pain found to have a sigmoid diverticulitis patient is going for possible sigmoid colectomy with a temporary colostomy as per Dr. Du. Blood cultures are positive for Staphylococcus possibly coagulase-negative. Presently on IV Ancef. 05/03/20-patient went to the OR today. Successful surgery. Seen the patient at bedside after the surgery. Patient has colostomy bag present. Patient is going to be n.p.o. 05/04/20-patient has a successful surgery yesterday sigmoid colectomy, temporary colostomy placement. Patient has NG tube. Complaining of abdominal pain. For further management as per Dr. Du. 05/05/2020-no acute events in the last 24 hours. T-max is 99.1. White cell count is normal. NG tube Lamar today patient is still n.p.o. Waiting for Dr. Du input. 05/06/2020-patient is doing well. Still complaining of severe soreness and pain in the abdomen. NG tube was removed yesterday. Patient is on ice chips. Afebrile. Waiting for surgical team recommendations today. Reason For Visit: SIGMOID DIVERTICULITIS Physical Exam Vital Signs: Temp Pulse Resp BP Pulse Ox 97.3 F 87 16 113/79 98 05/06/20 08:00 05/06/20 08:00 05/06/20 08:00 05/06/20 08:00 05/06/20 08:00 Intake & Output 05/05/20 05/06/20 05/07/20 06:59 06:59 06:59 Intake Total 2800 3050 Output Total 2900 2470 Balance -100 580 Weight 85.4 kg 85.4 kg General appearance: PRESENT: no acute distress, well-developed Head exam: PRESENT: atraumatic Eye exam: PRESENT: PERRLA Ear exam: PRESENT: normal external ear exam Mouth exam: PRESENT: neck supple Teeth exam: PRESENT: poor dentation Neck exam: ABSENT: carotid bruit, JVD, lymphadenopathy, thyromegaly Respiratory exam: PRESENT: decreased breath sounds Cardiovascular exam: PRESENT: RRR. ABSENT: diastolic murmur, rubs, systolic murmur Pulses: PRESENT: normal dorsalis pedis pul GI/Abdominal exam: PRESENT: soft, tenderness, other - Bowel sounds are sluggish still complaining of abdominal pain on gentle palpation.. ABSENT: distended, guarding, mass, organolmegaly, rebound Rectal exam: PRESENT: deferred Extremities exam: PRESENT: full ROM. ABSENT: calf tenderness, clubbing, pedal edema Neurological exam: PRESENT: alert, awake, oriented to person, oriented to place, oriented to time, oriented to situation, CN II-XII grossly intact. ABSENT: motor sensory deficit Psychiatric exam: PRESENT: appropriate affect, normal mood. ABSENT: homicidal ideation, suicidal ideation Skin exam: PRESENT: dry, intact, warm. ABSENT: cyanosis, rash Results Laboratory Results: 05/06/20 05:08 05/06/20 05:08 05/06/20 05/06/20 05:08 05:08 WBC 5.4 RBC 3.87 Hgb 11.2 L Hct 32.2 L MCV 83 MCH 28.9 MCHC 34.8 RDW 14.5 H Plt Count 276 Seg Neutrophils % 51.0 Sodium Cancelled Potassium Cancelled Chloride Cancelled Carbon Dioxide Cancelled Anion Gap Cancelled BUN Cancelled Creatinine Cancelled Est GFR ( Amer) Cancelled Est GFR (Non-Af Amer) Cancelled Glucose Cancelled Calcium Cancelled Magnesium Cancelled Total Bilirubin Cancelled AST Cancelled Alkaline Phosphatase Cancelled Total Protein Cancelled Albumin Cancelled 04/30/20 19:55 Blood Blood Culture - Final NO GROWTH IN 5 DAYS 05/01/20 05:29 CK-MB (CK-2) < 0.22 Impressions: Abdomen/Pelvis CT 04/30/20 14:23 IMPRESSION: Persistent appearance of sigmoid mural thickening and surrounding mesenteric fat stranding which has been present dating back to 05/01/2018 imaging. While this may represent a persistent infectious/inflammatory process, consideration should be given to possible underlying neoplasm. Assessment and Plan - Diagnosis (1) Diverticulitis Is this a current diagnosis for this admission?: Yes Plan: 04/30/2020-patient is going to be admitted to medical floor as an inpatient for a recurrent sigmoid diverticulitis. Patient will be n.p.o., on IV fluids, and IV morphine, IV Ativan for anxiety. GI prophylaxis initiated. Blood cultures urine cultures requested. To continue Invanz at this time. Surgical consult will be requested with the Ana Laura tomorrow. 05/01/2020-patient admitted with recurrent diverticulitis presently n.p.o., discussed the plan with the [facility] Laura Du and he is going to see the patient tomorrow. plan is to continue IV Invanz. Blood cultures are pending. 05/02/2020-male admitted with sigmoid diverticulitis cysts he has this recurrent problem Dr. Du is going plan to do the surgery tomorrow. 05/03/20-patient is successful surgery today. Sigmoid colectomy with a colostomy bag placement. Patient is going to be n.p.o. at this time. 05/04/2020-patient had a sigmoid colectomy with temporary colostomy placement yesterday. Still has the NG tube in place. Receiving IV fluids and IV antibiotic therapy. Dr. Du is on board. 05/05/20-postop day 2 sigmoid colectomy with temporary colostomy placement. NG tube was removed and patient is still n.p.o. Dietary recommendations as per Dr. Du. 05/06/2020-status post sigmoid colectomy with a temporary ileostomy. On examination minimal bowel sounds are present. Incision site looks clean. (2) HTN (hypertension) Is this a current diagnosis for this admission?: No Plan: 04/30/2020-blood pressure is 156/101. Patient has a history of chronic essential hypertension to start her on IV hydralazine 10 mg every 6 hours as needed for sy stolic blood pressure more than 170. 05/01/2020-latest blood pressure is 118/70. Presently on IV fluids normal saline at 125 cc/h plan is to increase the fluids to 200 cc/h as per patient request. 05/02/2020-blood pressure today is 127/64. Stable. 05/04/2020-blood pressure today is 138/86. Stable. Plan is to continue the present management. 05/05/20-blood pressure today is 135/86. Stable. 05/06/2020-blood pressure today is 130/80. Stable. (3) Tobacco abuse Is this a current diagnosis for this admission?: No - Plan Summary Summary: (1) Diarrhea Qualifiers: Diarrhea type: presumed infectious Qualified Code(s): R19.7 - Diarrhea, unspecified Is this a current diagnosis for this admission?: Yes Plan: 04/28/2020 Being on antibiotics 2 weeks ago (Keflex for UTI) there is a high probability that the patient has C. difficile colitis. This would certainly explain the watery diarrhea. C. difficile testing is pending. We will need to balance his fluid intake to compensate for a fluid bolus. Along with that we will need to correct electrolyte abnormalities. C. difficile testing should be back shortly. If there is positive, as I anticipate, will start oral vancomycin therapy. We will also put the patient on contact precautions. 04/29/2020 C. difficile confirmed 04/30/20-patient admitted with C. difficile diarrhea and contact solution, has 1 loose stool this morning. Receiving p.o. vancomycin at this time. Plan is to continue the present management. 05/01/20-C. difficile positive on p.o. vancomycin. No diarrhea is reported today. 05/02/20-patient is receiving p.o. vancomycin for C. difficile. Diarrhea is improving. 05/03/2020-diarrhea is resolved. Patient is expressing desire to go home today. Prescription was given for p.o. vancomycin 125 mg every 6 hours for 5 days. P atient is advised to follow-up with PCP next week. (2) Hypokalemia Is this a current diagnosis for this admission?: Yes Plan: 04/28/2020 Secondary to the diarrhea. We will increase her potassium supplementation. Because of the diarrhea I will likely give intravenous potassium initially and continue her oral potassium. 04/29/2020 Still low. I increased the oral potassium dosing. We will likely need to decrease as her diarrhea subsides. 04/30/2020-serum potassium today is 3.7 and the hypokalemia is resolving. 05/01/2020 serum potassium today is 4.1 and the hypokalemia is resolved. 05/02/2020-hyperkalemia resolved. Latest serum potassium is 4.5. 05/03/2020-serum potassium today is 5.0. Within normal limits. (3) Hyponatremia Is this a current diagnosis for this admission?: Yes Plan: 04/28/2020 Secondary to diarrhea most likely. Will be receiving gentle IV fluids to balance fluid loss from diarrhea. May also need to fluid restrict her from an oral standpoint but I believe the saline and stopping the diarrhea will correct her sodium. 04/29/2020 Monitor balance fluid loss with IV fluids versus her sodium level. We will continue to monitor and has diarrhea frequency consider sleep restriction. 04/30/2020-patient with hypokalemia serum sodium is 128 today. Asymptomatic. Plan is to continue same management. Patient has a history of heart failure to watch for the fluid overload. Patient is on fluid restriction. 05/01/2020-serum sodium is persistently low 129. Gradually improving. Patient is placed on fluid restriction and to continue directly therapy. Hyponatremia may be secondary to diuretics. 05/02/20- serum sodium is 128. Persistent hyponatremia may be secondary to diuretic therapy. 05/03/2020-serum sodium today is 128.7. Patient has chronic hyponatremia most likely secondary to diuretics. (4) Hypoalbuminemia Is this a current diagnosis for this admission?: No Plan: 04/28/2020 The patient's albumin was only 2.8. This is down from 3.5 several weeks ago. She should never felt much protein just with diarrhea. It could be delusional however I will give her 25 g of albumin and reassess. 04/29/2020 Received albumin. Will reassess tomorrow. Likely combination of age, diet and chronic illness. 04/30/2020-serum albumin is today is 2.5. Edema of the lower extremities significantly improving as per the patient. (5) Edema of both lower legs Is this a current diagnosis for this admission?: Yes Plan: 04/28/2020 Leg elevation and IV albumin at this point. I will resume diuretic therapy tomorrow. Her morbid obesity is also a contributing factor. 04/29/2020 Multifactorial. Keep legs elevated for now. 04/30/2020-edema of the lower extremities significantly improved as per the pat ient. 05/01/2020-edema of the lower extremities 05/03/2020-lower extremity edema improving on daily basis. (6) Longstanding persistent atrial fibrillation Is this a current diagnosis for this admission?: No Plan: 04/28/2020 The patient has a pacemaker. Right now she is exhibiting a paced rhythm. Will monitor heart rate with vital signs. She does remain on anticoagulation. Will need to watch for blood in the stool if in fact there is a colitis. Even with pronounced diarrhea there could be bleeding. 04/29/2020 Continue to monitor on telemetry. Continue metoprolol vital signs with standing. 04/30/2020-heart rate is around 74 today. Well-controlled. Patient has history of persistent atrial fibrillation. Has a pacemaker. To continue metoprolol and she is on anticoagulation with aphixiban. 05/01/20-heart rate in the 80s.. to continue metoprolol and aphixban 05/02/2020-heart rate is around 62. Plan is to continue metoprolol and anticoagulation with apixaban. 05/03/2020-heart rate in the 70s in sinus rhythm. Advised to continue metoprolol, aphixiban at home. (7) Venous stasis Is this a current diagnosis for this admission?: No Plan: 04/28/2020 Considering her morbid obesity the patient surely has venous insufficiency with stasis dermatitis. This is mistaken for cellulitis many times. She would benefit from compression therapy. We do not have full leg sequential compression in-house. We will keep legs elevated when possible. Consider compression wraps. (8) Morbid obesity Is this a current diagnosis for this admission?: No Plan: 04/28/2020 Her BMI of 52 significantly complicates several comorbidities. At this point aggressive diuresis would be the only way to manage her condition. Some of this certainly is water weight but only a small fraction. - Plan Summary Summary: 04/28/2020 Vital signs listed oxygen saturations at 67% at one-point. I believe this was monitor error. The patient is not on oxygen therapy. I do not believe the patient meets sepsis criteria either. We will need to administer IV fluids carefully. She will receive albumin to try and limit third spacing due to decreased oncotic pressure. 05/03/2020-C. difficile colitis resolving. Going home on p.o. vancomycin. Lower extremity edema significantly improved. No acute events in the last 24 hours.
[2020-05-06 12:46] LABS: ALBUMIN 2.7 g/dL (3.5-5.0); ALKALINE PHOSPHATASE 42 U/L (38-126); ANION GAP 5 (5-19); ASPARTATE AMINO TRANSFERASE 15 U/L (14-36); BILIRUBIN,TOTAL 0.3 mg/dL (0.2-1.3); BLOOD UREA NITROGEN 6 mg/dL (7-20); CALCIUM 8.5 mg/dL (8.4-10.2); CARBON DIOXIDE 27 mmol/L (22-30); CHLORIDE 105 mmol/L (98-107); GLUCOSE 94 mg/dL (75-110); POTASSIUM 3.4 mmol/L (3.6-5.0); TOTAL PROTEIN 5.2 g/dL (6.3-8.2)
--- NOTE | 2020-05-06 13:10 | PDOC PROGRESS REPORT ---
Subjective Progress Note for:: 05/06/20 Reason For Visit: SIGMOID DIVERTICULITIS Patient feeling well, minimal output from her ileostomy. Ambulating in halls. Folly catheter still in. Physical Exam Vital Signs: Temp Pulse Resp BP Pulse Ox 97.9 F 96 16 131/85 H 94 05/06/20 12:00 05/06/20 12:00 05/06/20 12:00 05/06/20 12:00 05/06/20 12:00 Intake & Output 05/05/20 05/06/20 05/07/20 06:59 06:59 06:59 Intake Total 2800 3050 1050 Output Total 2900 2470 Balance -046 396 8756 Weight 85.4 kg 85.4 kg General appearance: PRESENT: other - No acute distress; pupils pinpoint GI/Abdominal exam: PRESENT: other - Abdomen soft no peritoneal signs no rigidity. Midline incision inspected, dressing off, rica intact; active ileostomy with some edema, minimal fluid in bag Results Laboratory Results: 05/06/20 05:08 05/06/20 12:18 05/06/20 05/06/20 05/06/20 05:08 05:08 12:18 WBC 5.4 RBC 3.87 Hgb 11.2 L Hct 32.2 L MCV 83 MCH 28.9 MCHC 34.8 RDW 14.5 H Plt Count 276 Seg Neutrophils % 51.0 Sodium Cancelled 137.0 Potassium Cancelled 3.4 L Chloride Cancelled 105 Carbon Dioxide Cancelled 27 Anion Gap Cancelled 5 BUN Cancelled 6 L Creatinine Cancelled 0.47 L Est GFR ( Amer) Cancelled > 60 Est GFR (Non-Af Amer) Cancelled Glucose Cancelled 94 Calcium Cancelled 8.5 Magnesium Cancelled Total Bilirubin Cancelled 0.3 AST Cancelled 15 Alkaline Phosphatase Cancelled 42 Total Protein Cancelled 5.2 L Albumin Cancelled 2.7 L 04/30/20 19:55 Blood Blood Culture - Final NO GROWTH IN 5 DAYS 05/01/20 05:29 CK-MB (CK-2) < 0.22 Impressions: Abdomen/Pelvis CT 04/30/20 14:23 IMPRESSION: Persistent appearance of sigmoid mural thickening and surrounding mesenteric fat stranding which has been present dating back to 05/01/2018 imaging. While this may represent a persistent infectious/inflammatory process, consideration should be given to possible underlying neoplasm. Assessment & Plan - Diagnosis (1) Sigmoid diverticulitis Plan: Impression: Patient is 3 days status post sigmoid colectomy for complicated diverticular disease, with primary anastomosis and protective ileostomy, minimal ileostomy output, taking ice chips. Recommendations: 1. We will keep diet on surgical sips only 2. We will discontinue Coppola catheter 3. Add IV Toradol and IV acetaminophen and reduce her narcotic dependency. 4. The above discussed with patient and her mother. They agree with today's plan - Time Time Spent: 30 to 50 Minutes
[2020-05-06] MEDS: KETOROLAC TROMETHAMINE INJ/PF 30 MG/1 ML SDV IV PRN ×2 (14:49→22:59)
[2020-05-06] MEDS: ACETAMINOPHEN INJ/PF 1000 MG/100 ML SDV IV SCH ×2 (17:22→22:59)
[2020-05-07] MEDS: POTASSI CL 20 MEQ/D5-1/2NS 1L 1,000 ML IV PRN ×2 (01:25→19:02)
[2020-05-07] MEDS: HEPARIN SOD (PORCINE) 5,000 UNIT/ML 1 ML VIAL SUBCUT SCH ×3 (05:48→21:01)
[2020-05-07] MEDS: ACETAMINOPHEN INJ/PF 1000 MG/100 ML SDV IV SCH ×4 (05:48→23:20)
[2020-05-07] MEDS: KETOROLAC TROMETHAMINE INJ/PF 30 MG/1 ML SDV IV PRN ×3 (05:48→21:01)
--- NOTE | 2020-05-07 07:30 | PDOC PROGRESS REPORT ---
Subjective Progress Note for:: 05/07/20 Subjective:: feels ok stool via stoma Reason For Visit: SIGMOID DIVERTICULITIS Physical Exam Vital Signs: Temp Pulse Resp BP Pulse Ox 98.0 F 81 18 131/88 H 93 05/07/20 00:58 05/07/20 00:58 05/07/20 00:58 05/07/20 00:58 05/07/20 00:58 Intake & Output 05/06/20 05/07/20 05/08/20 06:59 06:59 06:59 Intake Total 3050 2050 Output Total 2470 700 Balance 580 1350 Weight 85.4 kg 85.4 kg General appearance: PRESENT: no acute distress Head exam: PRESENT: normocephalic Eye exam: PRESENT: EOMI Ear exam: PRESENT: normal external ear exam Mouth exam: PRESENT: dry mucosa Teeth exam: PRESENT: poor dentation Neck exam: PRESENT: full ROM Respiratory exam: PRESENT: clear to auscultation melvin Cardiovascular exam: PRESENT: RRR Pulses: PRESENT: normal radial pulses, normal femoral pulses Vascular exam: PRESENT: normal capillary refill Breast: PRESENT: Normal GI/Abdominal exam: PRESENT: soft, other - stoma pink productive of bile. Rectal exam: PRESENT: deferred Extremities exam: PRESENT: full ROM Musculoskeletal exam: PRESENT: full ROM Psychiatric exam: PRESENT: flat affect Skin exam: PRESENT: dry Results Laboratory Results: 05/06/20 05:08 05/06/20 12:18 05/06/20 12:18 Sodium 137.0 Potassium 3.4 L Chloride 105 Carbon Dioxide 27 Anion Gap 5 BUN 6 L Creatinine 0.47 L Est GFR ( Amer) > 60 Glucose 94 Calcium 8.5 Total Bilirubin 0.3 AST 15 Alkaline Phosphatase 42 Total Protein 5.2 L Albumin 2.7 L 05/01/20 05:29 CK-MB (CK-2) < 0.22 Impressions: Abdomen/Pelvis CT 04/30/20 14:23 IMPRESSION: Persistent appearance of sigmoid mural thickening and surrounding mesenteric fat stranding which has been present dating back to 05/01/2018 im aging. While this may represent a persistent infectious/inflammatory process, consideration should be given to possible underlying neoplasm. Assessment & Plan - Diagnosis (1) Diverticulitis Is this a current diagnosis for this admission?: Yes - Plan Summary Plan Summary: s/p sigmoid colectomy for diverticulitis with loop ileostomy now productive of enteric fluid plan start full liquids out of bed
[2020-05-07] MEDS: ERTAPENEM SODIUM 1 GM in NORMAL SALINE 50 ML IV SCH (09:58)
[2020-05-07] MEDS: PANTOPRAZOLE SODIUM 40 MG VIAL IV SCH (09:59)
[2020-05-07] MEDS: NICOTINE 21 MG/24 HR PATCH.TD24 TD SCH (09:59)
[2020-05-07] MEDS: LORAZEPAM INJ 2 MG/1 ML VIAL IV PRN ×2 (10:09→21:01)
--- NOTE | 2020-05-07 14:32 | PDOC PROGRESS REPORT ---
Subjective Progress Note for:: 05/07/20 Subjective:: No adverse events overnight. No new complaints. Vital signs been stable. She is having output through her ileostomy. She says she felt hungry for the first time yesterday. No fevers. Pain is well controlled. Reason For Visit: SIGMOID DIVERTICULITIS Physical Exam Vital Signs: Temp Pulse Resp BP Pulse Ox 97.3 F 90 16 116/79 95 05/07/20 11:06 05/07/20 11:06 05/07/20 11:06 05/07/20 11:06 05/07/20 11:06 Intake & Output 05/06/20 05/07/20 05/08/20 06:59 06:59 06:59 Intake Total 3050 2050 50 Output Total 2470 700 Balance 580 1350 50 Weight 85.4 kg 85.4 kg 85.4 kg General appearance: PRESENT: no acute distress, cooperative, disheveled Respiratory exam: PRESENT: clear to auscultation melvin, symmetrical, unlabored. ABSENT: accessory muscle use, chest wall tenderness, prolonged expiratory phas, rhonchi, tachypnea Cardiovascular exam: PRESENT: RRR, +S1, +S2 Pulses: PRESENT: normal carotid pulses Vascular exam: PRESENT: normal capillary refill GI/Abdominal exam: PRESENT: hypoactive bowel sounds, soft, tenderness - Appropriate, other - Ileostomy functioning with output. ABSENT: distended, guarding Extremities exam: ABSENT: clubbing Musculoskeletal exam: PRESENT: normal inspection. ABSENT: deformity Neurological exam: PRESENT: awake, oriented to person, oriented to place, oriented to situation Psychiatric exam: PRESENT: flat affect Skin exam: PRESENT: dry, warm Results Laboratory Results: 05/06/20 05:08 05/06/20 12:18 05/01/20 05:29 CK-MB (CK-2) < 0.22 Impressions: Abdomen/Pelvis CT 04/30/20 14:23 IMPRESSION: Persistent appearance of sigmoid mural thickening and surrounding mesenteric fat stranding which has been present dating back to 05/01/2018 imaging. While this may represent a persistent infectious/inflammatory process, consideration should be given to possible underlying neoplasm. Assessment and Plan - Diagnosis (1) Diverticulitis Is this a current diagnosis for this admission?: Yes Plan: Continue current antibiotics. Status post partial colectomy with diverting ileostomy. Surgery is following. Diet advanced to full liquids today. (2) HTN (hypertension) Qualifiers: Hypertension type: essential hypertension Qualified Code(s): I10 - Essential (primary) hypertension Is this a current diagnosis for this admission?: Yes Plan: Currently on as needed medications, when she is able to take p.o. again we will reassess for the need for her lisinopril and HCTZ. (3) Tobacco abuse Is this a current diagnosis for this admission?: Yes Plan: Patient has a current every day smoker. Patient has been counseled regarding the deleterious effects on her health and was encouraged to quit immediately. (4) Hypokalemia Is this a current diagnosis for this admission?: Yes Plan: We will replace as needed with IV supplement. (5) Sepsis Qualifiers: Sepsis type: sepsis due to unspecified organism Sepsis acute organ dy sfunction status: without acute organ dysfunction Qualified Code(s): A41.9 - Sepsis, unspecified organism Is this a current diagnosis for this admission?: Yes Plan: Resolved - Plan Summary Summary: (1) Diarrhea Qualifiers: Diarrhea type: presumed infectious Qualified Code(s): R19.7 - Diarrhea, unspecified Is this a current diagnosis for this admission?: Yes Plan: 04/28/2020 Being on antibiotics 2 weeks ago (Keflex for UTI) there is a high probability that the patient has C. difficile colitis. This would certainly explain the watery diarrhea. C. difficile testing is pending. We will need to balance his fluid intake to compensate for a fluid bolus. Along with that we will need to correct electrolyte abnormalities. C. difficile testing should be back shortly. If there is positive, as I anticipate, will start oral vancomycin therapy. We will also put the patient on contact precautions. 04/29/2020 C. difficile confirmed 04/30/20-patient admitted with C. difficile diarrhea and contact solution, has 1 loose stool this morning. Receiving p.o. vancomycin at this time. Plan is to continue the present management. 05/01/20-C. difficile positive on p.o. vancomycin. No diarrhea is reported today. 05/02/20-patient is receiving p.o. vancomycin for C. difficile. Diarrhea is improving. 05/03/2020-diarrhea is resolved. Patient is expressing desire to go home today. Prescription was given for p.o. vancomycin 125 mg every 6 hours for 5 days. Patient is advised to follow-up with PCP next week. (2) Hypokalemia Is this a current diagnosis for this admission?: Yes Plan: 04/28/2020 Secondary to the diarrhea. We will increase her potassium supplementation. Because of the diarrhea I will likely give intravenous potassium initially and continue her oral potassium. 04/29/2020 Still low. I increased the oral potassium dosing. We will likely need to decrease as her diarrhea subsides. 04/30/2020-serum potassium today is 3.7 and the hypokalemia is resolving. 05/01/2020 serum potassium today is 4.1 and the hypokalemia is resolved. 05/02/2020-hyperkalemia resolved. Latest serum potassium is 4.5. 05/03/2020-serum potassium today is 5.0. Within normal limits. (3) Hyponatremia Is this a current diagnosis for this admission?: Yes Plan: 04/28/2020 Secondary to diarrhea most likely. Will be receiving gentle IV fluids to balance fluid loss from diarrhea. May also need to fluid restrict her from an oral standpoint but I believe the saline and stopping the diarrhea will correct her sodium. 04/29/2020 Monitor balance fluid loss with IV fluids versus her sodium level. We will continue to monitor and has diarrhea frequency consider sleep restriction. 04/30/2020-patient with hypokalemia serum sodium is 128 today. Asymptomatic. Plan is to continue same management. Patient has a history of heart failure to watch for the fluid overload. Patient is on fluid restriction. 05/01/2020-serum sodium is persistently low 129. Gradually improving. Patient is placed on fluid restriction and to continue directly therapy. Hyponatremia may be secondary to diuretics. 05/02/20- serum sodium is 128. Persistent hyponatremia may be secondary to diuretic therapy. 05/03/2020-serum sodium today is 128.7. Patient has chronic hyponatremia most likely secondary to diuretics. (4) Hypoalbuminemia Is this a current diagnosis for this admission?: No Plan: 04/28/2020 The patient's albumin was only 2.8. This is down from 3.5 several weeks ago. She should never felt much protein just with diarrhea. It could be delusional however I will give her 25 g of albumin and reassess. 04/29/2020 Received albumin. Will reassess tomorrow. Likely combination of age, diet and chronic illness. 04/30/2020-serum albumin is today is 2.5. Edema of the lower extremities significantly improving as per the patient. (5) Edema of both lower legs Is this a current diagnosis for this admission?: Yes Plan: 04/28/2020 Leg elevation and IV albumin at this point. I will resume diuretic therapy tomorrow. Her morbid obesity is also a contributing factor. 04/29/2020 Multifactorial. Keep legs elevated for now. 04/30/2020-edema of the lower extremities significantly improved as per the patient. 05/01/2020-edema of the lower extremities 05/03/2020-lower extremity edema improving on daily basis. (6) Longstanding persistent atrial fibrillation Is this a current diagnosis for this admission?: No Plan: 04/28/2020 The patient has a pacemaker. Right now she is exhibiting a paced rhythm. Will monitor heart rate with vital signs. She does remain on anticoagulation. Will need to watch for blood in the stool if in fact there is a colitis. Even with pronounced diarrhea there could be bleeding. 04/29/2020 Continue to monitor on telemetry. Continue metoprolol vital signs with standing. 04/30/2020-heart rate is around 74 today. Well-controlled. Patient has history of persistent atrial fibrillation. Has a pacemaker. To continue metoprolol and she is on anticoagulation with aphixiban. 05/01/20-heart rate in the 80s.. to continue metoprolol and aphixban 05/02/2020-heart rate is around 62. Plan is to continue metoprolol and anticoagulation with apixaban. 05/03/2020-heart rate in the 70s in sinus rhythm. Advised to continue metoprolol, aphixiban at home. (7) Venous stasis Is this a current diagnosis for this admission?: No Plan: 04/28/2020 Considering her morbid obesity the patient surely has venous insufficiency with stasis dermatitis. This is mistaken for cellulitis many times. She would benefit from compression therapy. We do not have full leg sequential compression in-house. We will keep legs elevated when possible. Consider compression wraps. (8) Morbid obesity Is this a current diagnosis for this admission?: No Plan: 04/28/2020 Her BMI of 52 significantly complicates several comorbidities. At this point aggressive diuresis would be the only way to manage her condition. Some of this certainly is water weight but only a small fraction. - Plan Summary Summary: 04/28/2020 Vital signs listed oxygen saturations at 67% at one-point. I believe this was monitor error. The patient is not on oxygen therapy. I do not believe the patient meets sepsis criteria either. We will need to administer IV fluids carefully. She will receive albumin to try and limit third spacing due to decreased oncotic pressure. 05/03/2020-C. difficile colitis resolving. Going home on p.o. vancomycin. Lower extremity edema significantly improved. No acute events in the last 24 hours. - Time Time Spent with patient: 15-24 minutes
[2020-05-07] MEDS: MORPHINE SULFATE 10 MG/ML INJ IV PRN (23:32)
[2020-05-08] MEDS: ACETAMINOPHEN INJ/PF 1000 MG/100 ML SDV IV SCH ×4 (05:02→23:31)
[2020-05-08] MEDS: HEPARIN SOD (PORCINE) 5,000 UNIT/ML 1 ML VIAL SUBCUT SCH ×3 (05:02→21:20)
[2020-05-08] MEDS: POTASSI CL 20 MEQ/D5-1/2NS 1L 1,000 ML IV PRN (05:03)
[2020-05-08] MEDS: KETOROLAC TROMETHAMINE INJ/PF 30 MG/1 ML SDV IV PRN ×3 (05:09→18:09)
--- NOTE | 2020-05-08 09:11 | PDOC PROGRESS REPORT ---
Subjective Progress Note for:: 05/08/20 Subjective:: up ambulating Reason For Visit: SIGMOID DIVERTICULITIS Physical Exam Vital Signs: Temp Pulse Resp BP Pulse Ox 97.9 F 86 17 118/86 H 96 05/07/20 23:53 05/07/20 23:53 05/07/20 23:53 05/07/20 23:53 05/07/20 23:53 Intake & Output 05/07/20 05/08/20 05/09/20 06:59 06:59 06:59 Intake Total 2050 4270 Output Total 700 Balance 1350 4270 Weight 85.4 kg 91 kg General appearance: PRESENT: no acute distress Head exam: PRESENT: normocephalic Eye exam: PRESENT: EOMI Mouth exam: PRESENT: moist Respiratory exam: PRESENT: clear to auscultation melvin Cardiovascular exam: PRESENT: RRR Pulses: PRESENT: normal radial pulses, normal femoral pulses Breast: PRESENT: Normal GI/Abdominal exam: PRESENT: soft, other - stoma functioning Rectal exam: PRESENT: deferred Extremities exam: PRESENT: full ROM Musculoskeletal exam: PRESENT: full ROM Neurological exam: PRESENT: alert, altered, awake, oriented to person, ataxia Psychiatric exam: PRESENT: flat affect Skin exam: PRESENT: dry Results Laboratory Results: 05/06/20 05:08 05/06/20 12:18 05/01/20 05:29 CK-MB (CK-2) < 0.22 Impressions: Abdomen/Pelvis CT 04/30/20 14:23 IMPRESSION: Persistent appearance of sigmoid mural thickening and surrounding mesenteric fat stranding which has been present dating back to 05/01/2018 imaging. While this may represent a persistent infectious/inflammatory process, consideration should be given to possible underlying neoplasm. Assessment & Plan - Diagnosis (1) Diverticulitis Is this a current diagnosis for this admission?: Yes - Plan Summary Plan Summary: s/p sigmoid colectomy with primary anstomosis and temp ileostomy doing ok now iwth ileostomy function will advance diet home when giana soft diet.
[2020-05-08] MEDS: PANTOPRAZOLE SODIUM 40 MG VIAL IV SCH (11:25)
[2020-05-08] MEDS: ERTAPENEM SODIUM 1 GM in NORMAL SALINE 50 ML IV SCH (11:26)
[2020-05-08] MEDS: NICOTINE 21 MG/24 HR PATCH.TD24 TD SCH (11:26)
[2020-05-08] MEDS: MORPHINE SULFATE 10 MG/ML INJ IV PRN ×2 (12:26→21:19)
--- NOTE | 2020-05-08 17:59 | PDOC PROGRESS REPORT ---
Subjective Progress Note for:: 05/08/20 Subjective:: No adverse events overnight. No new complaints. Vital signs been stable. She tolerated clear liquids overnight and is planning to have her diet advanced to mechanical soft today. Reason For Visit: SIGMOID DIVERTICULITIS Physical Exam Vital Signs: Temp Pulse Resp BP Pulse Ox 98.8 F 89 17 138/87 H 98 05/08/20 15:14 05/08/20 15:14 05/08/20 15:14 05/08/20 15:14 05/08/20 15:14 Intake & Output 05/07/20 05/08/20 05/09/20 06:59 06:59 06:59 Intake Total 2050 4270 Output Total 700 Balance 1350 4270 Weight 85.4 kg 91 kg General appearance: PRESENT: no acute distress, cooperative, disheveled Respiratory exam: PRESENT: clear to auscultation melvin, symmetrical, unlabored. ABSENT: accessory muscle use, chest wall tenderness, prolonged expiratory phas, rhonchi, tachypnea Cardiovascular exam: PRESENT: RRR, +S1, +S2 Pulses: PRESENT: normal carotid pulses Vascular exam: PRESENT: normal capillary refill GI/Abdominal exam: PRESENT: hypoactive bowel sounds, soft, tenderness - Approp riate, other - Ileostomy functioning with output. ABSENT: distended, guarding Extremities exam: ABSENT: clubbing Musculoskeletal exam: PRESENT: normal inspection. ABSENT: deformity Neurological exam: PRESENT: awake, oriented to person, oriented to place, oriented to situation Psychiatric exam: PRESENT: flat affect Skin exam: PRESENT: dry, warm Results Laboratory Results: 05/06/20 05:08 05/06/20 12:18 05/01/20 05:29 CK-MB (CK-2) < 0.22 Impressions: Abdomen/Pelvis CT 04/30/20 14:23 IMPRESSION: Persistent appearance of sigmoid mural thickening and surrounding mesenteric fat stranding which has been present dating back to 05/01/2018 imaging. While this may represent a persistent infectious/inflammatory process, consideration should be given to possible underlying neoplasm. Assessment and Plan - Diagnosis (1) Diverticulitis Is this a current diagnosis for this admission?: Yes Plan: Continue current antibiotics. Status post partial colectomy with diverting ileostomy. Surgery is following. Diet advanced to mechanical soft today. If she tolerates this overnight she can go home tomorrow. (2) HTN (hypertension) Qualifiers: Hypertension type: essential hypertension Qualified Code(s): I10 - Essential (primary) hypertension Is this a current diagnosis for this admission?: Yes Plan: Currently on as needed medications, when she is able to take p.o. again we will reassess for the need for her lisinopril and HCTZ. (3) Tobacco abuse Is this a current diagnosis for this admission?: Yes Plan: Patient has a current every day smoker. Patient has been counseled regarding the deleterious effects on her health and was encouraged to quit immediately. (4) Hypokalemia Is this a current diagnosis for this admission?: Yes Plan: We will replace as needed with IV supplement. (5) Sepsis Qualifiers: Sepsis type: sepsis due to unspecified organism Sepsis acute organ dysfunction status: without acute organ dysfunction Qualified Code(s): A41.9 - Sepsis, unspecified organism Is this a current diagnosis for this admission?: Yes Plan: Resolved - Plan Summary Summary: (1) Diarrhea Qualifiers: Diarrhea type: presumed infectious Qualified Code(s): R19.7 - Diarrhea, unspecified Is this a current diagnosis for this admission?: Yes Plan: 04/28/2020 Being on antibiotics 2 weeks ago (Keflex for UTI) there is a high probability that the patient has C. difficile colitis. This would certainly explain the watery diarrhea. C. difficile testing is pending. We will need to balance his fluid intake to compensate for a fluid bolus. Along with that we will need to correct electrolyte abnormalities. C. difficile testing should be back shortly. If there is positive, as I anticipate, will start oral vancomycin therapy. We will also put the patient on contact precautions. 04/29/2020 C. difficile confirmed 04/30/20-patient admitted with C. difficile diarrhea and contact solution, has 1 loose stool this morning. Receiving p.o. vancomycin at this time. Plan is to continue the present management. 05/01/20-C. difficile positive on p.o. vancomycin. No diarrhea is reported today. 05/02/20-patient is receiving p.o. vancomycin for C. difficile. Diarrhea is improving. 05/03/2020-diarrhea is resolved. Patient is expressing desire to go home today. Prescription was given for p.o. vancomycin 125 mg every 6 hours for 5 days. Patient is advised to follow-up with PCP next week. (2) Hypokalemia Is this a current diagnosis for this admission?: Yes Plan: 04/28/2020 Secondary to the diarrhea. We will increase her potassium supplementation. Because of the diarrhea I will likely give intravenous potassium initially and continue her oral potassium. 04/29/2020 Still low. I increased the oral potassium dosing. We will likely need to de crease as her diarrhea subsides. 04/30/2020-serum potassium today is 3.7 and the hypokalemia is resolving. 05/01/2020 serum potassium today is 4.1 and the hypokalemia is resolved. 05/02/2020-hyperkalemia resolved. Latest serum potassium is 4.5. 05/03/2020-serum potassium today is 5.0. Within normal limits. (3) Hyponatremia Is this a current diagnosis for this admission?: Yes Plan: 04/28/2020 Secondary to diarrhea most likely. Will be receiving gentle IV fluids to balance fluid loss from diarrhea. May also need to fluid restrict her from an oral standpoint but I believe the saline and stopping the diarrhea will correct her sodium. 04/29/2020 Monitor balance fluid loss with IV fluids versus her sodium level. We will cont inue to monitor and has diarrhea frequency consider sleep restriction. 04/30/2020-patient with hypokalemia serum sodium is 128 today. Asymptomatic. Plan is to continue same management. Patient has a history of heart failure to watch for the fluid overload. Patient is on fluid restriction. 05/01/2020-serum sodium is persistently low 129. Gradually improving. Patient is placed on fluid restriction and to continue directly therapy. Hyponatremia may be secondary to diuretics. 05/02/20- serum sodium is 128. Persistent hyponatremia may be secondary to diuretic therapy. 05/03/2020-serum sodium today is 128.7. Patient has chronic hyponatremia most likely secondary to diuretics. (4) Hypoalbuminemia Is this a current diagnosis for this admission?: No Plan: 04/28/2020 The patient's albumin was only 2.8. This is down from 3.5 several weeks ago. She should never felt much protein just with diarrhea. It could be delusional however I will give her 25 g of albumin and reassess. 04/29/2020 Received albumin. Will reassess tomorrow. Likely combination of age, diet and chronic illness. 04/30/2020-serum albumin is today is 2.5. Edema of the lower extremities significantly improving as per the patient. (5) Edema of both lower legs Is this a current diagnosis for this admission?: Yes Plan: 04/28/2020 Leg elevation and IV albumin at this point. I will resume diuretic therapy tomorrow. Her morbid obesity is also a contributing factor. 04/29/2020 Multifactorial. Keep legs elevated for now. 04/30/2020-edema of the lower extremities significantly improved as per the patient. 05/01/2020-edema of the lower extremities 05/03/2020-lower extremity edema improving on daily basis. (6) Longstanding persistent atrial fibrillation Is this a current diagnosis for this admission?: No Plan: 04/28/2020 The patient has a pacemaker. Right now she is exhibiting a paced rhythm. Will monitor heart rate with vital signs. She does remain on anticoagulation. Will need to watch for blood in the stool if in fact there is a colitis. Even with pronounced diarrhea there could be bleeding. 04/29/2020 Continue to monitor on telemetry. Continue metoprolol vital signs with standing. 04/30/2020-heart rate is around 74 today. Well-controlled. Patient has history of persistent atrial fibrillation. Has a pacemaker. To continue metoprolol and she is on anticoagulation with aphixiban. 05/01/20-heart rate in the 80s.. to continue metoprolol and aphixban 05/02/2020-heart rate is around 62. Plan is to continue metoprolol and anticoagulation with apixaban. 05/03/2020-heart rate in the 70s in sinus rhythm. Advised to continue metoprolol, aphixiban at home. (7) Venous stasis Is this a current diagnosis for this admission?: No Plan: 04/28/2020 Considering her morbid obesity the patient surely has venous insufficiency with stasis dermatitis. This is mistaken for cellulitis many times. She would benefit from compression therapy. We do not have full leg sequential compression in-house. We will keep legs elevated when possible. Consider compression wraps. (8) Morbid obesity Is this a current diagnosis for this admission?: No Plan: 04/28/2020 Her BMI of 52 significantly complicates several comorbidities. At this point aggressive diuresis would be the only way to manage her condition. Some of this certainly is water weight but only a small fraction. - Plan Summary Summary: 04/28/2020 Vital signs listed oxygen saturations at 67% at one-point. I believe this was monitor error. The patient is not on oxygen therapy. I do not believe the patient meets sepsis criteria either. We will need to administer IV fluids carefully. She will receive albumin to try and limit third spacing due to decreased oncotic pressure. 05/03/2020-C. difficile colitis resolving. Going home on p.o. vancomycin. Lower extremity edema significantly improved. No acute events in the last 24 hours. - Time Time Spent with patient: 15-24 minutes
[2020-05-08] MEDS: LORAZEPAM INJ 2 MG/1 ML VIAL IV PRN (23:41)
[2020-05-09] MEDS: ACETAMINOPHEN INJ/PF 1000 MG/100 ML SDV IV SCH (05:24)
[2020-05-09] MEDS: KETOROLAC TROMETHAMINE INJ/PF 30 MG/1 ML SDV IV PRN (05:24)
[2020-05-09] MEDS: HEPARIN SOD (PORCINE) 5,000 UNIT/ML 1 ML VIAL SUBCUT SCH (05:34)
--- NOTE | 2020-05-09 08:21 | PDOC DISCHARGE SUMMARY ---
General - Admit/Disc Date/PCP Admission Date/Primary Care Provider: 04/30/20 17:41 ELIJAH GONZALES, Discharge Date: 05/09/20 - Discharge Diagnosis Final Diagnosis: diverticulitis - Assessment Summary: 44-year-old female to the hospital for failure of outpatient treatment for her diverticulitis wound she was admitted because of persistent left lower quadrant abdominal pain started on IV antibiotics per medical doctor. Following day she was seen by surgery and because of the patient's continued left lower quadrant pain she was prepped for surgery and underwent a sigmoid colectomy with a loop ileostomy that was temporary. She was monitored in the hospital postoperatively and she is slowly returned to having normal bowel function via her ileostomy. She was initially started on clear liquid diet which was slowly advanced to soft diet. By the time of discharge she was tolerating a soft diet and ileostomy is functioning well she is ready for discharge home. She will be followed up as an outpatient and plans will be made for ileostomy takedown in 4 to 6 weeks. - Additional Information Resuscitation Status: Full Code Discharge Diet: As Tolerated Discharge Activity: Activity As Tolerated, No Lifting Over 10 Pounds Referrals: LOENEL EASTMAN MD [ACTIVE STAFF] - 05/15/20 1:15 pm Home Medications: Alprazolam [Xanax] 1 mg PO Q8HP PRN 03/20/20 Hydrochlorothiazide [Hydrodiuril 25 mg Tablet] 25 mg PO QAM 03/20/20 Lisinopril [Zestril] 40 mg PO DAILY 03/20/20 Metronidazole [Flagyl 500 mg Tablet] 500 mg PO Q8 MDD filled 04/29 for 10 day supply 03/20/20 Ciprofloxacin HCl [Cipro 750 mg Tablet] 750 mg PO BID MDD filled 04/29 for 10 day supply 04/30/20 Ketorolac Tromethamine [Toradol 10 mg Tablet] 10 mg PO Q6HP PRN MDD filled 04/29 for 5 day supply 04/30/20 Lactobacillus Acidophilus [Probiotic Acidophilus] 1 each PO DAILY 04/30/20 History of Present Illiness History of Present Illness: RASHMI HODGE I is a 44 year old female Physical Exam Vital Signs: Temp Pulse Resp BP Pulse Ox 98.3 F 88 18 113/79 95 05/09/20 00:11 05/09/20 00:11 05/09/20 00:11 05/09/20 00:11 05/09/20 00:11 Intake & Output 05/08/20 05/09/20 05/10/20 06:59 06:59 06:59 Intake Total 4270 2430 Output Total 100 Balance 4270 2330 Weight 91 kg 86.3 kg Results Laboratory Results: WBC 5.4 10^3/uL (4.0-10.5) 05/06/20 05:08 RBC 3.87 10^6/uL (3.72-5.28) 05/06/20 05:08 Hgb 11.2 g/dL (12.0-15.5) L 05/06/20 05:08 Hct 32.2 % (36.0-47.0) L 05/06/20 05:08 MCV 83 fl (80-97) 05/06/20 05:08 MCH 28.9 pg (27.0-33.4) 05/06/20 05:08 MCHC 34.8 g/dL (32.0-36.0) 05/06/20 05:08 RDW 14.5 % (11.5-14.0) H 05/06/20 05:08 Plt Count 276 10^3/uL (150-450) 05/06/20 05:08 Lymph % (Auto) 32.4 % (13-45) 05/06/20 05:08 Hardy % (Auto) 11.8 % (3-13) 05/06/20 05:08 Eos % (Auto) 4.2 % (0-6) 05/06/20 05:08 Baso % (Auto) 0.6 % (0-2) 05/06/20 05:08 Absolute Neuts (auto) 2.7 10^3/uL (1.7-8.2) 05/06/20 05:08 Absolute Lymphs (auto) 1.7 10^3/uL (0.5-4.7) 05/06/20 05:08 Absolute Monos (auto) 0.6 10^3/uL (0.1-1.4) 05/06/20 05:08 Absolute Eos (auto) 0.2 10^3/uL (0.0-0.6) 05/06/20 05:08 Absolute Basos (auto) 0.0 10^3/uL (0.0-0.2) 05/06/20 05:08 Seg Neutrophils % 51.0 % (42-78) 05/06/20 05:08 PT 16.0 SEC (11.4-15.4) H 05/02/20 08:19 INR 1.28 05/02/20 08:19 Sodium 137.0 mmol/L (137-145) 05/06/20 12:18 Potassium 3.4 mmol/L (3.6-5.0) L 05/06/20 12:18 Chloride 105 mmol/L (98-107) 05/06/20 12:18 Carbon Dioxide 27 mmol/L (22-30) 05/06/20 12:18 Anion Gap 5 (5-19) 05/06/20 12:18 BUN 6 mg/dL (7-20) L 05/06/20 12:18 Creatinine 0.47 mg/dL (0.52-1.25) L 05/06/20 12:18 Est GFR ( Amer) > 60 (>60) 05/06/20 12:18 Est GFR (Non-Af Amer) Cancelled 05/06/20 05:08 Est GFR (MDRD) Non-Af > 60 (>60) 05/06/20 12:18 Glucose 94 mg/dL (75-110) 05/06/20 12:18 Hemoglobin A1c % 5.3 % (4.7-6.0) 05/01/20 05:29 Calcium 8.5 mg/dL (8.4-10.2) 05/06/20 12:18 Magnesium Cancelled 05/06/20 05:08 Total Bilirubin 0.3 mg/dL (0.2-1.3) 05/06/20 12:18 Direct Bilirubin 0.0 mg/dL (0.0-0.4) 05/06/20 12:18 Neonat Total Bilirubin Not Reportable 05/06/20 12:18 Neonat Direct Bilirubin Not Reportable 05/06/20 12:18 Neonat Indirect Bili Not Reportable 05/06/20 12:18 AST 15 U/L (14-36) 05/06/20 12:18 ALT 10 U/L (<35) 05/06/20 12:18 Alkaline Phosphatase 42 U/L (38-126) 05/06/20 12:18 CK-MB (CK-2) < 0.22 ng/mL (<4.55) 05/01/20 05:29 Total Protein 5.2 g/dL (6.3-8.2) L 05/06/20 12:18 Albumin 2.7 g/dL (3.5-5.0) L 05/06/20 12:18 Triglycerides 91 mg/dL (<150) 05/01/20 05:29 Cholesterol 109.30 mg/dL (0-200) 05/01/20 05:29 LDL Cholesterol Direct 70 mg/dL (<100) 05/01/20 05:29 VLDL Cholesterol 18.0 mg/dL (10-31) 05/01/20 05:29 HDL Cholesterol 25 mg/dL (>40) L 05/01/20 05:29 Lipase 150.6 U/L (23-300) 04/30/20 14:35 EGFR Cancelled 05/06/20 05:08 TSH 0.26 uIU/mL (0.47-4.68) L 05/01/20 05:29 Urine Color STRAW 04/30/20 14:35 Urine Appearance CLEAR 04/30/20 14:35 Urine pH 6.0 (5.0-9.0) 04/30/20 14:35 Ur Specific [place] 1.002 04/30/20 14:35 Urine Protein NEGATIVE mg/dL (NEGATIVE) 04/30/20 14:35 Urine Glucose (UA) NEGATIVE mg/dL (NEGATIVE) 04/30/20 14:35 Urine Ketones NEGATIVE mg/dL (NEGATIVE) 04/30/20 14:35 Urine Blood SMALL (NEGATIVE) H 04/30/20 14:35 Urine Nitrite NEGATIVE (NEGATIVE) 04/30/20 14:35 Urine Bilirubin NEGATIVE (NEGATIVE) 04/30/20 14:35 Urine Urobilinogen NEGATIVE mg/dL (<2.0) 04/30/20 14:35 Ur Leukocyte Esterase NEGATIVE (NEGATIVE) 04/30/20 14:35 Urine WBC (Auto) 0 /HPF 04/30/20 14:35 Urine RBC (Auto) 0 /HPF 04/30/20 14:35 Squamous Epi Cells Auto <1 /HPF 04/30/20 14:35 Urine Ascorbic Acid NEGATIVE (NEGATIVE) 04/30/20 14:35 Urine Opiates Screen UNCONFIRMED POSITIVE 04/30/20 20:40 Urine Methadone Screen NEGATIVE 04/30/20 20:40 Ur Barbiturates Screen NEGATIVE 04/30/20 20:40 Ur Phencyclidine Scrn NEGATIVE 04/30/20 20:40 Ur Amphetamines Screen NEGATIVE 04/30/20 20:40 U Benzodiazepines Scrn NEGATIVE 04/30/20 20:40 Urine Cocaine Screen NEGATIVE 04/30/20 20:40 U Marijuana (THC) Screen UNCONFIRMED POSITIVE 04/30/20 20:40 SARS-CoV-2 (PCR) NEGATIVE (NEGATIVE) 05/02/20 14:40 05/01/20 05:29 CK-MB (CK-2) < 0.22 Impressions: Abdomen/Pelvis CT 04/30/20 14:23 IMPRESSION: Persistent appearance of sigmoid mural thickening and surrounding mesenteric fat stranding which has been present dating back to 05/01/2018 imag ing. While this may represent a persistent infectious/inflammatory process, consideration should be given to possible underlying neoplasm.
[2020-05-09 10:29] VITALS: BP 129/83
[2020-05-09] MEDS: NICOTINE 21 MG/24 HR PATCH.TD24 TD SCH (10:32)
[2020-05-09] MEDS: ERTAPENEM SODIUM 1 GM in NORMAL SALINE 50 ML IV SCH (10:32)
[2020-05-09] MEDS: PANTOPRAZOLE SODIUM 40 MG VIAL IV SCH (10:32)
== END 2020-05-09 10:38 | disposition home or self-care (01) | DRG 330 ==
LOC: ER 14:05 → EH 17:41 → 4W 19:00
PROVIDERS: ADMIT Internal Medicine; ATTEND Family Medicine
PROC: 0D1B0Z4 Bypass Ileum to Cutaneous, Open Approach (ICD-10-PCS; 2020-05-03)
PROC: 0DTJ0ZZ Resection of Appendix, Open Approach (ICD-10-PCS; 2020-05-03)
PROC: 0DTN0ZZ Resection of Sigmoid Colon, Open Approach (ICD-10-PCS; principal; 2020-05-03 09:30)
DX: K57.20 Diverticulitis of large intestine with perforation and abscess without bleeding (principal); A04.72 Enterocolitis due to Clostridium difficile, not specified as recurrent; E87.1 Hypo-osmolality and hyponatremia; I48.11 Longstanding persistent atrial fibrillation; Z68.43 Body mass index [BMI] 50.0-59.9, adult; Z03.818 Encounter for observation for suspected exposure to other biological agents ruled out; I10 Essential (primary) hypertension; F17.210 Nicotine dependence, cigarettes, uncomplicated; B96.89 Other specified bacterial agents as the cause of diseases classified elsewhere; E66.01 Morbid (severe) obesity due to excess calories; E88.09 Other disorders of plasma-protein metabolism, not elsewhere classified; E87.6 Hypokalemia; I87.8 Other specified disorders of veins; Z79.899 Other long term (current) drug therapy; Z95.0 Presence of cardiac pacemaker; Z82.49 Family history of ischemic heart disease and other diseases of the circulatory system
CPT/HCPCS: 36415; 74177; 80048; 80053; 80061; 80307; 81001; 82553; 83036; 83690; 83735; 840; 84443; 85025; 85610; 87040; 87077; 87150; 87186; 87635; 88304; 88307; 94799; 96374; 99285; C9113; C9803; J0131; J1100; J1170; J1335; J1644; J1885; J2060; J2250; J2270; J2405; J2704; J2710; J3480; J3490; J7030; J7121

== ENCOUNTER → 2020-06-19 | Outpatient (CLI) | payer BC ==
--- NOTE | 2020-06-19 11:27 | RADIOLOGY REPORT (SQ) ---
EXAM DESCRIPTION: BARIUM ENEMA IMAGES COMPLETED DATE/TIME: 06/19/2020 11:09 am REASON FOR STUDY: DIVERTICULITIS OF INTESTINE, PART UNSPEC, W/O PERF OR ABSCESS (K57.92) K57.92 DVT RCLI OF INTEST, PART UNSP, W/O PERF OR ABSCESS W/O sigmoid colectomy, preop for ileostomy reversal COMPARISON: None. FLUOROSCOPY TIME: 1.4 minutes of fluoroscopy was used. 20 images saved to PACS. TECHNIQUE: Following retrograde filling of the colon with water soluble contrast, fluoroscopic spot and overhead imaging of the colon was obtained and saved to PACS. LIMITATIONS: None. FINDINGS: PIANO BUILDER KUB: Non obstructive bowel gas pattern. Ileostomy identified in the right lower martin drant. CECUM: Normal cecum. Reflux of contrast into the terminal ileum extending to the ileostomy. ASCENDING COLON: No masses, strictures, or perforations. TRANSVERSE COLON: No masses, strictures, or perforations. DESCENDING COLON: No masses, strictures, or perforations. Postoperative changes without evidence of stricture or extravasation of contrast. Colorectal anastomosis is intact. Single mid descending col on diverticulum. RECTUM: No masses, strictures, or perforations. POST EVAC: Near complete evacuation of contrast. OTHER: No other significant finding. IMPRESSION: COLORECTAL ANASTOMOSIS INTACT WITHOUT EVIDENCE OF EXTRAVASATION OR LEAK CONTRAST. NO ST RICTURES IDENTIFIED. COMMENT: Quality ID [id number]: Final reports for procedures using fluoroscopy that document radiation exp osure indices, or exposure time and number of fluorographic images (if radiation exposure indices are not available) TECHNICAL DOCUMENTATION: JOB ID: [id number] 2010 [employer]- All Rights Reserved Reading location - IP/workstation name: [email or web address]
== END ==
LOC: RAD 09:36
PROVIDERS: ATTEND Surgery
DX: K57.92 Diverticulitis of intestine, part unspecified, without perforation or abscess without bleeding (principal)
CPT/HCPCS: 74270

== ENCOUNTER 2020-07-09 05:31 | Inpatient (IN) | payer BC ==
[2020-07-04 13:16] LABS: ABSOLUTE EOSINOPHILS # (AUTO) 1.1 10^3/uL (0.0-0.6); ABSOLUTE LYMPHOCYTES (AUTO) 2.2 10^3/uL (0.5-4.7); ABSOLUTE MONOCYTES (AUTO) 0.4 10^3/uL (0.1-1.4); ABSOLUTE NEUT (AUTO) 3.6 10^3/uL (1.7-8.2); BASOPHILS % (AUTO) 0.3 % (0-2); HEMATOCRIT 41.1 % (36.0-47.0); LYMPHOCYTES % (AUTO) 30.5 % (13-45); MEAN CORPUSCULAR HEMOGLOBIN 28.7 pg (27.0-33.4); MEAN CORPUSCULAR VOLUME 84 fl (80-97); MONOCYTES % (AUTO) 5.3 % (3-13); PLATELET COUNT 254 10^3/uL (150-450); RED BLOOD COUNT 4.87 10^6/uL (3.72-5.28); RED CELL DISTRIBUTION WIDTH 15.3 % (11.5-14.0); SEGMENTED NEUTROPHILS % (AUTO) 48.9 % (42-78); TOTAL CELLS COUNTED % (AUTO) 100 %; WHITE BLOOD COUNT 7.4 10^3/uL (4.0-10.5)
[~2020-07-09 05:31] MED LIST changes: +ACETAMINOPHEN 1,000 MG/100 ML RTUPB IV PRN; +CEFOXITIN SODIUM 2 GM in DEXTROSE 5%-WATER 100 ML IV PRN; +IBUPROFEN 800 MG in NORMAL SALINE 250 ML IV PRN; +LACTATED RINGERS 1000 ML IV PRN; +LIDOCAINE 0.5% INJ-PF (5 MG/ML) 50 ML SDV SUBCUT PRN; -PROPOFOL INJ 200 MG/20 ML VIAL IV ONE
[2020-07-09] MEDS ORDERED: ACETAMINOPHEN 1,000 MG/100 ML RTUPB IV ONE (05:49)
[2020-07-09] MEDS ORDERED: PROPOFOL INJ 200 MG/20 ML VIAL IV ONE (06:53)
[2020-07-09] MEDS ORDERED: HYDROMORPHONE HCL INJ/PF 2 MG/ML AMPULE ONE (06:53)
[2020-07-09] MEDS ORDERED: MIDAZOLAM 2 MG/2 ML INJ ONE (06:53)
[2020-07-09] MEDS ORDERED: BUPIVACAINE HCL 0.25 % INJ/PF (2.5 MG/1 ML) 30 ML VIAL ONE (07:12)
[2020-07-09] MEDS ORDERED: FENTANYL CITRATE INJ/PF 100 MCG/2 ML AMPUL IV PRN ×3 (08:12)
[2020-07-09] MEDS ORDERED: OXYCODONE-ACETAMINOPHEN 5-325 MG TABLET PO PRN (08:12)
[2020-07-09] MEDS ORDERED: MEPERIDINE HCL/PF INJ 25 MG/1 ML DISP.SYRIN IV PRN (08:12)
[2020-07-09] MEDS ORDERED: ONDANSETRON HCL INJ/PF 4 MG/2 ML SDV IV PRN (08:12)
[2020-07-09] MEDS ORDERED: DIPHENHYDRAMINE HCL 50 MG/ML VIAL IV PRN (08:12)
[2020-07-09] MEDS ORDERED: PROMETHAZINE HCL INJ 25 MG/1 ML VIAL IV PRN ×2 (08:12)
[2020-07-09] MEDS ORDERED: DEXTROSE 5%-LACTATED RINGERS 1,000 ML IV PRN (09:36)
--- NOTE | 2020-07-09 09:46 | Operative Report ---
Nonrecallable Operative Report DATE OF SURGERY: 07/09/20 PREOPERATIVE DIAGNOSIS: Unwanted ileostomy POSTOPERATIVE DIAGNOSIS: Same as above OPERATION: 1. Takedown of right lower quadrant loop ileostomy. 2. Side to side stapled PORFIRIO anastomosis. 3. Implantation of 9 x 15 cm [place] Bio-A hernia mesh at the ileostomy site. SURGEON: LEONEL FA[employer] CLE[employer]ER: CRISTY PINK ANESTHESIA: GA TISSUE REMOVED OR ALTERED: Ileostomy COMPLICATIONS: None apparent ESTIMATED BLOOD LOSS: Minimal PROCEDURE: Drains/implants: 9 x 15 cm [place] Bio-A hernia mesh. Procedure in detail: After informed consent was obtained, the patient was brought to the operating room and laid in the supine position. The ileostomy was closed using an 0 silk suture in running, locking fashion. Once this was completed, the abdomen was prepped and draped in a normal sterile fashion. An incision was created around the ileostomy using a 15 blade scalpel. Dissection was carried down through the subcutaneous tissues using sharp dissection and electrocautery. The ileostomy was freed from the surrounding fatty soft tissue, as well as the abdominal wall fascia. Once the ileostomy was completely freed, it was exteriorized. The ileostomy was divided using curved Martines scissors. A [id number] stapled anastomosis was then created with a PORFIRIO-75 stapler using a blue load. The PORFIRIO stapler was used to close the resulting defect. 2 crotch stitches of 3-0 Vicryl were used to buttress the crotch of the anastomosis. The anastomosis was then returned to the abdomen. Next, attention was turned to placement of a [place] bio a hernia mesh to buttress the abdominal wall closure. The 9 x 15 cm mesh was inserted into the abdominal cavity. It was sutured to the anterior abdominal wall using #1 PDS suture in simple, interrupted, circumferential fashion. Once this was completed, the abdominal wall was closed using #1 Prolene suture in [id number] fashion. Once complete, the wound was packed with Xeroform gauze. The overlying skin was closed over top with Xeroform gauze with skin rica. A dressing was placed, and the procedure was concluded. All sponge, instrument, and needle counts were correct x2. Condition: Stable. Cristy Pink PA-C was scrubbed and present the entirety of the procedure. She assisted with all portions of procedure including opening of the skin, dissection of the ileostomy, opening of the abdomen, creation of the anastomosis, insertion of the mesh, closure of the fascia, closure of the skin.
[2020-07-09] MEDS ORDERED: PROMETHAZINE HCL INJ 25 MG/1 ML VIAL ONE (10:00)
[2020-07-09] MEDS ORDERED: (PENDING PHARMACY ID) (Lisinopril [Zestril] 40 MG) PO SCH (10:00)
[2020-07-09] MEDS: FENTANYL CITRATE INJ/PF 100 MCG/2 ML AMPUL ONE ×4 (10:20→12:07)
[2020-07-09] MEDS: KETOROLAC TROMETHAMINE INJ/PF 30 MG/1 ML SDV IV SCH ×2 (13:40→21:27)
[2020-07-09] MEDS: ACETAMINOPHEN 1,000 MG/100 ML RTUPB IV SCH ×2 (13:40→21:19)
[2020-07-09] MEDS: FAMOTIDINE INJ/PF 20 MG/2 ML SDV IV SCH ×2 (13:55→21:24)
[2020-07-09] MEDS ORDERED: ALPRAZOLAM 0.5 MG TABLET PO PRN (14:03)
[2020-07-09] MEDS ORDERED: PHENYLEPHRINE HCL INJ/PF 10 MG/1 ML SDV ONE (14:34)
[2020-07-09] MEDS ORDERED: METOCLOPRAMIDE HCL INJ/PF 10 MG/2 ML SDV ONE (14:34)
[2020-07-09] MEDS ORDERED: DEXAMETHASONE SOD PHOSPHATE INJ 4 MG/1 ML VIAL ONE (14:34)
[2020-07-09] MEDS ORDERED: NEOSTIGMINE METHYLSULFATE 10 MG/10 ML VIAL ONE (14:34)
[2020-07-09] MEDS ORDERED: LIDOCAINE 2% INJ-PF (20 MG/ML) 2 ML AMPUL ONE (14:34)
[2020-07-09] MEDS ORDERED: ROCURONIUM BROMIDE INJ 50 MG/5 ML VIAL IV ONE (14:34)
[2020-07-09] MEDS ORDERED: ONDANSETRON HCL INJ/PF 4 MG/2 ML SDV ONE (14:34)
[2020-07-09] MEDS: NICOTINE 21 MG/24 HR PATCH.TD24 TD SCH (15:58)
[2020-07-09] MEDS: CEFOXITIN SODIUM 2 GM in DEXTROSE 5%-WATER 100 ML IV SCH ×2 (15:58→23:22)
[2020-07-09] MEDS: OXYCODONE HCL IR 5 MG TABLET PO PRN ×2 (16:14→20:18)
--- NOTE | 2020-07-09 17:11 | EKG REPORT ---
SEVERITY:- BORDERLINE ECG - SINUS RHYTHM PROBABLE LEFT ATRIAL ABNORMALITY : Confirmed by: Melina Jasso MD 09-Jul-2020 17:10:44
[2020-07-09] MEDS: MORPHINE SULFATE 10 MG/ML INJ IV PRN (17:23)
[2020-07-09] MEDS: ONDANSETRON HCL INJ/PF 4 MG/2 ML SDV IV PRN ×2 (17:24→21:29)
[2020-07-10] MEDS: MORPHINE SULFATE 10 MG/ML INJ IV PRN ×3 (02:55→19:26)
[2020-07-10] MEDS: ACETAMINOPHEN 1,000 MG/100 ML RTUPB IV SCH ×3 (06:21→21:21)
[2020-07-10] MEDS: KETOROLAC TROMETHAMINE INJ/PF 30 MG/1 ML SDV IV SCH ×3 (06:22→21:21)
[2020-07-10 06:25] LABS: ABSOLUTE EOSINOPHILS # (AUTO) 0.3 10^3/uL (0.0-0.6); ABSOLUTE LYMPHOCYTES (AUTO) 2.1 10^3/uL (0.5-4.7); ABSOLUTE MONOCYTES (AUTO) 0.9 10^3/uL (0.1-1.4); ABSOLUTE NEUT (AUTO) 7.3 10^3/uL (1.7-8.2); BASOPHILS % (AUTO) 0.2 % (0-2); EOSINOPHILS % (AUTO) 2.9 % (0-6); HEMATOCRIT 38.8 % (36.0-47.0); HEMOGLOBIN 13.3 g/dL (12.0-15.5); LYMPHOCYTES % (AUTO) 19.9 % (13-45); MEAN CORPUSCULAR HEMOGLOBIN 28.9 pg (27.0-33.4); MEAN CORPUSCULAR HGB CONC 34.4 g/dL (32.0-36.0); MEAN CORPUSCULAR VOLUME 84 fl (80-97); MONOCYTES % (AUTO) 8.2 % (3-13); PLATELET COUNT 233 10^3/uL (150-450); RED BLOOD COUNT 4.62 10^6/uL (3.72-5.28); SEGMENTED NEUTROPHILS % (AUTO) 68.8 % (42-78); TOTAL CELLS COUNTED % (AUTO) 100 %; WHITE BLOOD COUNT 10.6 10^3/uL (4.0-10.5)
[2020-07-10 06:42] LABS: ANION GAP 8 (5-19); BLOOD UREA NITROGEN 7 mg/dL (7-20); CALCIUM 8.7 mg/dL (8.4-10.2); CARBON DIOXIDE 25 mmol/L (22-30); CHLORIDE 108 mmol/L (98-107); GLUCOSE 104 mg/dL (75-110); POTASSIUM 3.9 mmol/L (3.6-5.0)
[2020-07-10] MEDS: FAMOTIDINE INJ/PF 20 MG/2 ML SDV IV SCH ×2 (09:10→21:22)
[2020-07-10] MEDS: NICOTINE 21 MG/24 HR PATCH.TD24 TD SCH (09:11)
[2020-07-10] MEDS: LISINOPRIL 10 MG TABLET PO SCH (09:11)
[2020-07-10] MEDS: OXYCODONE HCL IR 5 MG TABLET PO PRN ×2 (09:11→18:06)
--- NOTE | 2020-07-10 10:49 | PDOC PROGRESS REPORT ---
Subjective Progress Note for:: 07/10/20 Reason For Visit: Z43.2 ENCOUNTER FOR ATTENTION TO ILEOSTOMY Physical Exam Vital Signs: Temp Pulse Resp BP Pulse Ox 97.6 F 86 18 122/83 98 07/10/20 09:02 07/10/20 08:00 07/10/20 08:00 07/10/20 08:00 07/10/20 08:00 Intake & Output 07/09/20 07/10/20 07/11/20 06:59 06:59 06:59 Intake Total 0 4940 800 Output Total 4220 Balance 0 720 800 Weight 88.7 kg Results Laboratory Results: 07/10/20 05:40 07/10/20 05:40 07/10/20 07/10/20 05:40 05:40 WBC 10.6 H RBC 4.62 Hgb 13.3 Hct 38.8 MCV 84 MCH 28.9 MCHC 34.4 RDW 15.0 H Plt Count 233 Seg Neutrophils % 68.8 Sodium 140.5 Potassium 3.9 Chloride 108 H Carbon Dioxide 25 Anion Gap 8 BUN 7 Creatinine 0.55 Est GFR ( Amer) > 60 Glucose 104 Calcium 8.7 Assessment & Plan - Diagnosis (1) Ileostomy in place Is this a current diagnosis for this admission?: Yes - Time Anticipated Discharge Disposition: Home, Self Care Anticipated Discharge Timeframe: within 48 hours - Plan Summary Plan Summary: 44-year-old female who is status post a sigmoid colon resection with diverting ileostomy. She has healed significantly, and presented for ileostomy reversal. She is postop day #1 from ileostomy reversal. She is doing well. She denies any flatus at this time. She had nausea yesterday, but is feeling better today. I have encouraged her to get out of bed and ambulate. Aggressive pulmonary toilet. Awaiting bowel function.
[2020-07-11] MEDS: KETOROLAC TROMETHAMINE INJ/PF 30 MG/1 ML SDV IV SCH ×3 (06:20→21:01)
[2020-07-11] MEDS: ACETAMINOPHEN 1,000 MG/100 ML RTUPB IV SCH ×3 (06:20→21:01)
[2020-07-11] MEDS: LISINOPRIL 10 MG TABLET PO SCH (09:05)
[2020-07-11] MEDS: NICOTINE 21 MG/24 HR PATCH.TD24 TD SCH (09:06)
[2020-07-11] MEDS: FAMOTIDINE INJ/PF 20 MG/2 ML SDV IV SCH ×2 (09:06→21:01)
[2020-07-11] MEDS: OXYCODONE HCL IR 5 MG TABLET PO PRN ×2 (11:55→20:17)
[2020-07-11] MEDS ORDERED: ONDANSETRON HCL INJ/PF 4 MG/2 ML SDV IV PRN (14:00)
[2020-07-11] MEDS: MORPHINE SULFATE 10 MG/ML INJ IV PRN (16:31)
[2020-07-12] MEDS: ACETAMINOPHEN 1,000 MG/100 ML RTUPB IV SCH (06:09)
[2020-07-12] MEDS: KETOROLAC TROMETHAMINE INJ/PF 30 MG/1 ML SDV IV SCH (06:09)
--- NOTE | 2020-07-12 06:44 | PDOC PROGRESS REPORT ---
Subjective Progress Note for:: 07/11/20 Reason For Visit: Z43.2 ENCOUNTER FOR ATTENTION TO ILEOSTOMY Physical Exam Vital Signs: Temp Pulse Resp BP Pulse Ox 98.3 F 87 14 114/82 95 07/11/20 23:22 07/11/20 23:22 07/11/20 23:22 07/11/20 23:22 07/11/20 23:22 Intake & Output 07/10/20 07/11/20 07/12/20 06:59 06:59 06:59 Intake Total 4940 1436 300 Output Total 4220 Balance 720 1436 300 Weight 88.7 kg 87.4 kg 88.2 kg Results Laboratory Results: 07/10/20 05:40 07/10/20 05:40 Assessment & Plan - Diagnosis (1) Ileostomy in place Is this a current diagnosis for this admission?: Yes - Time Anticipated Discharge Disposition: Home, Self Care Anticipated Discharge Timeframe: within 24 hours - Plan Summary Plan Summary: 44-year-old female who is status post a sigmoid colon resection with diverting ileostomy. She has healed significantly, and presented for ileostomy reversal. She is postop day #2 from ileostomy reversal. She is doing well. She is passing a small amount of flatus. She denies nausea and vomiting. She has been ambulating in the hallway. Advance diet. Continue with aggressive pulmonary toilet. Likely home tomorrow.
--- NOTE | 2020-07-12 06:47 | PDOC DISCHARGE SUMMARY ---
General - Admit/Disc Date/PCP Admission Date/Primary Care Provider: 07/09/20 05:31 ELIJAH GONZALES DO Discharge Date: 07/12/20 - Discharge Diagnosis Final Diagnosis: History of severe diverticulitis, unwanted ileostomy. - Assessment Summary: This is a 44-year-old female admitted to the hospital for ileostomy reversal. She underwent the procedure, and was taken to the floor in stable condition. While on the floor, the patient began passing flatus, tolerating a diet, ambulating in the hallways, and having bowel movements. By 07/12/2020, the patient is doing very well, her pain is controlled with oral pain medications, and it is felt that she has reached maximal hospital benefit. At this time she is medically fit for discharge. - Additional Information Resuscitation Status: Full Code Discharge Diet: As Tolerated Discharge Activity: Balance Activity w/Rest, No Lifting Over 10 Pounds, No Lifting/Push/Pulling Referrals: ELIJAH GONZALES DO [Primary Care Provider] - Prescriptions: Hydrocodone/Acetaminophen [[place] 10-325 mg Tablet] 1 tab PO Q6HP PRN #28 tablet PRN Reason: For Pain Home Medications: Alprazolam [Xanax] 1 mg PO Q8HP PRN 03/20/20 Lisinopril [Zestril] 40 mg PO DAILY 03/20/20 Ketorolac Tromethamine [Toradol 10 mg Tablet] 10 mg PO Q8HP PRN 04/30/20 Hydrocodone/Acetaminophen [[place] 10-325 mg Tablet] 1 tab PO Q6HP PRN #28 tablet 07/12/20 History of Present Illiness History of Present Illness: RASHMI HODGE I is a 44 year old female Physical Exam Vital Signs: Temp Pulse Resp BP Pulse Ox 98.3 F 87 14 114/82 95 07/11/20 23:22 07/11/20 23:22 07/11/20 23:22 07/11/20 23:22 07/11/20 23:22 Intake & Output 07/10/20 07/11/20 07/12/20 06:59 06:59 06:59 Intake Total 4940 1436 300 Output Total 4220 Balance 720 1436 300 Weight 88.7 kg 87.4 kg 88.2 kg Results Laboratory Results: WBC 10.6 10^3/uL (4.0-10.5) H 07/10/20 05:40 RBC 4.62 10^6/uL (3.72-5.28) 07/10/20 05:40 Hgb 13.3 g/dL (12.0-15.5) 07/10/20 05:40 Hct 38.8 % (36.0-47.0) 07/10/20 05:40 MCV 84 fl (80-97) 07/10/20 05:40 MCH 28.9 pg (27.0-33.4) 07/10/20 05:40 MCHC 34.4 g/dL (32.0-36.0) 07/10/20 05:40 RDW 15.0 % (11.5-14.0) H 07/10/20 05:40 Plt Count 233 10^3/uL (150-450) 07/10/20 05:40 Lymph % (Auto) 19.9 % (13-45) 07/10/20 05:40 Emanuel % (Auto) 8.2 % (3-13) 07/10/20 05:40 Eos % (Auto) 2.9 % (0-6) 07/10/20 05:40 Baso % (Auto) 0.2 % (0-2) 07/10/20 05:40 Absolute Neuts (auto) 7.3 10^3/uL (1.7-8.2) 07/10/20 05:40 Absolute Lymphs (auto) 2.1 10^3/uL (0.5-4.7) 07/10/20 05:40 Absolute Monos (auto) 0.9 10^3/uL (0.1-1.4) 07/10/20 05:40 Absolute Eos (auto) 0.3 10^3/uL (0.0-0.6) 07/10/20 05:40 Absolute Basos (auto) 0.0 10^3/uL (0.0-0.2) 07/10/20 05:40 Seg Neutrophils % 68.8 % (42-78) 07/10/20 05:40 Sodium 140.5 mmol/L (137-145) 07/10/20 05:40 Potassium 3.9 mmol/L (3.6-5.0) 07/10/20 05:40 Chloride 108 mmol/L (98-107) H 07/10/20 05:40 Carbon Dioxide 25 mmol/L (22-30) 07/10/20 05:40 Anion Gap 8 (5-19) 07/10/20 05:40 BUN 7 mg/dL (7-20) 07/10/20 05:40 Creatinine 0.55 mg/dL (0.52-1.25) 07/10/20 05:40 Est GFR ( Amer) > 60 (>60) 07/10/20 05:40 Est GFR (MDRD) Non-Af > 60 (>60) 07/10/20 05:40 Glucose 104 mg/dL (75-110) 07/10/20 05:40 Calcium 8.7 mg/dL (8.4-10.2) 07/10/20 05:40 Urine HCG, Qual NEGATIVE (NEGATIVE) 07/09/20 05:40 COVID-19 Source NASOPHARYNGEAL 07/06/20 11:23 COVID-19 (SAMANTA) NOT DETECTED 07/06/20 11:23 Blood Type A POSITIVE 07/09/20 06:07 Antibody Screen NEGATIVE 07/09/20 06:07
[2020-07-12 08:33] VITALS: BP 118/77
== END 2020-07-12 09:49 | disposition home or self-care (01) | DRG 331 ==
LOC: INOR 05:31 → 4S 13:21
PROVIDERS: ADMIT Surgery; ATTEND Surgery
PROC: 0DU Gastrointestinal System, Supplement (ICD-10-PCS; 2020-07-09)
PROC: 0DQB0ZZ Repair Ileum, Open Approach (ICD-10-PCS; principal; 2020-07-09 07:30)
DX: Z43.2 Encounter for attention to ileostomy (principal); I10 Essential (primary) hypertension; F17.200 Nicotine dependence, unspecified, uncomplicated; Z11.59 Encounter for screening for other viral diseases; Z79.899 Other long term (current) drug therapy
CPT/HCPCS: 36415; 80048; 81025; 840; 85025; 86850; 86900; 86901; 87635; 93005; 93010; 94799; C1758; C1781; C9803; J0131; J0694; J1100; J1170; J1741; J1885; J2250; J2270; J2370; J2405; J2550; J2704; J2710; J2765; J3010; J3490; J7050; J7060; J7121; S0028

== ENCOUNTER → 2020-09-19 | Outpatient (CLI) | payer BC ==
--- NOTE | 2020-09-19 11:58 | RADIOLOGY REPORT (SQ) ---
EXAM DESCRIPTION: CT ABD/PELVIS WITH IV ORAL IMAGES COMPLETED DATE/TIME: 09/19/2020 9:22 am REASON FOR STUDY: R10.31 RIGHT LOWER QUADRANT PAIN R10.31 RIGHT LOWER QUADRANT PAIN COMPARISON: 04/30/2020, 04/05/2020, 03/20/2020 TECHNIQUE: CT scan of the abdomen and pelvis performed using helical scanning technique with dynamic intravenous contrast injection. No oral contrast. Images reviewed with lung, soft tissue, and bone windows. Reconstructed coronal and sagittal MPR images reviewed. Delayed images for evaluation of the urinary system also acquired. All images stored on PACS. All CT scanners at this facility use dose modulation, iterative reconstruction, and/or weight based d osing when appropriate to reduce radiation dose to as low as reasonably achievable (ALARA). [facility]: Dose Right [facility]: CareDose [facility]: Dose Right [facility]: Teradose 4D [facility]: [employer] CONTRAST TYPE AND DOSE: contrast/concentration: Isovue 350.00 mmol/ml; Total Contrast Delivered: 96. 0 ml; Total Saline Delivered: 71.0 ml RENAL FUNCTION: None required. The patient is less than 50 years old. RADIATION DOSE: CT Rad equipment meets quality standard of care and radiation dose reduction techniq ues were employed. CTDIvol: 8.1 - 8.3 mGy. DLP: 904 mGy-cm.. LIMITATIONS: None. FINDINGS: LOWER CHEST: No significant findings. No nodules or infiltrates. LIVER: Previously demonstrated hepatic hemangiomas are not seen to advantage due to differences in nena whitney timing on today's examination. No acute findings. SPLEEN: Normal size. No focal lesions. PANCREAS: No masses. No significant calcifications. No adjacent inflammation or peripancreatic fluid collections. Pancreatic duct not dilated. GALLBLADDER: No identified stones by CT criteria. No inflammatory changes to suggest cholecystitis. ADRENAL GLANDS: No significant masses or asymmetry. RIGHT KIDNEY AND URETER: No solid masses. No significant calcifications. No hydronephrosis or hyd roureter. LEFT KIDNEY AND URETER: No solid masses. No significant calcifications. No hydronephrosis or hydr oureter. AORTA AND VESSELS: No aneurysm. No dissection. Renal arteries, SMA, celiac without stenosis. RETROPERITONEUM: No retroperitoneal adenopathy, hemorrhage or masses. BOWEL AND PERITONEAL CAVITY: The patient appears to be status post sigmoidectomy in the study interva l. Enteric contrast is seen to the level of the rectum without obstruction. No acute inflammatory c hanges. APPENDIX: Intake questionnaire indicates no appendectomy; however, surgical changes are seen in the r egion of the appendix origin and no appendix is visualized. PELVIS: A small amount of free fluid is seen adjacent to the right adnexa. ABDOMINAL WALL: Mesh herniorrhaphy of the right lower quadrant. BONES: No significant or acute findings. OTHER: No other significant finding. IMPRESSION: No evidence of bowel obstruction or acute intra-abdominal infectious/inflammatory proces s. Interval sigmoidectomy and appendectomy as well as right lower quadrant mesh herniorrhaphy. TECHNICAL DOCUMENTATION: JOB ID: [id number] Quality ID # [id number]: Final reports with documentation of one or more dose reduction techniques (e.g., Au tomated exposure control, adjustment of the mA and/or kV according to patient size, use of iterative reconstruction technique) 2010 [employer]- All Rights Reserved Reading location - IP/workstation name: [email or web address]
== END ==
LOC: RAD 08:26
PROVIDERS: ATTEND Surgery
DX: R10.31 Right lower quadrant pain (principal); R19.03 Right lower quadrant abdominal swelling, mass and lump
CPT/HCPCS: 74177; 82565